=== PATIENT | female | born 1960 | race Caucasian/White ===

== ENCOUNTER 2018-10-30 13:34 | Inpatient (IN) | payer BC ==
[~2018-10-30 13:34] MED LIST: ISOVUE-370 76%-LOCM 1 ML ONE
[2018-10-30 14:02] LABS: Bilirubin Small (Negative); Blood, Urine Negative (Negative); Clarity CLEAR (Clear); Glucose, Urine (Dipstick) Negative (Negative); Leukocyte Trace (Negative); Nitrite Negative (Negative); Protein, Urine (Dipstick) Negative (Neg-Trace); Specific Gravity, Urine 1.021 (1.002-1.036)
[2018-10-30 14:04] LABS: Bacteria/HPF None Seen HPF (None Seen); Hyaline Casts/LPF 4-6 HYALINE CAST LPF (0-3 Hyaline); Pathc Cast-AUWi Flag 0.43 (0-2.49); Squamous Epithelial 0-3 HPF (0-3); WBC/HPF 0-3 HPF (0-3)
[2018-10-30] MEDS ORDERED: Ondansetron PF 4 MG/2 ML Vial ONE (14:53)
[2018-10-30] MEDS ORDERED: Morphine 4 MG/ML VIAL ONE (14:53)
[2018-10-30 14:59] LABS: #Lymphocytes 1.6 thou/uL (1.20-3.40); #Monocytes 0.8 thou/uL (0.11-0.59); #Neutrophils 14.8 thou/uL (1.40-6.50); %Basophils 0.1 % (0.0-1.0); %Eosinophils 0.3 % (0.0-10.0); %Lymphocytes 9.1 % (21.0-51.0); %Monocytes 4.7 % (0.0-10.0); %Neutrophils 85.9 % (42.0-75.0); Hemoglobin 15.1 g/dL (12.0-16.0); Mean Corpuscular HGB CONC 32.9 g/dL (32.0-36.0); Mean Corpuscular Hemoglobin 30.5 pg (27.0-31.0); Mean Corpuscular Volume 92.6 fL (78.0-98.0); Mean Platelet Volume 8.2 fL (7.4-10.4); Platelet Count 333 thou/uL (130-400); RBC Distribution Width 12.1 % (11.5-14.5); Red Blood Cell (RBC) Count 4.95 mill/uL (4.20-5.40); White Blood Cell (WBC) Count 17.3 thou/uL (4.8-10.8)
[2018-10-30 15:21] LABS: ALT (SGPT) 9 U/L (8-55); AST (SGOT) 13 U/L (5-34); Albumin 4.2 g/dL (3.5-5.0); Alkaline Phosphatase 104 U/L (40-150); Anion Gap 16 mmol/L (10-20); BUN (Urea Nitrogen) 10 mg/dL (9.8-20.1); Bilirubin, Total 1.3 mg/dL (0.2-1.2); Calc. Creatinine Clearance 0 mL/min (70-130); Calcium 9.7 mg/dL (7.8-10.44); Carbon Dioxide 20 mmol/L (22-29); Chloride 102 mmol/L (98-107); Estimated GFR-MDRD 81; Globulin 2.9 g/dL (2.4-3.5); Glucose 106 mg/dL (70-105); Lipase 23 U/L (8-78); Potassium 4.1 mmol/L (3.5-5.1); Protein, Total 7.1 g/dL (6.0-8.3); Sodium 134 mmol/L (136-145)
--- NOTE | 2018-10-30 15:27 | CT ---
CT ABDOMEN AND PELVIS WITH CONTRAST: HISTORY: Right lower quadrant abdominal pain. COMPARISON: None. FINDINGS: There are moderate emphysematous changes in the lung bases. No pericardial effusion. There is focal fatty infiltration in hepatic segment 4B, near the falciform ligament. The gallbladde r is unremarkable. The spleen is unremarkable. The pancreas is unremarkable. The aortoiliac contour is nonaneurysmal with moderate atherosclerotic plaque. There is marked wall t hickening of the sigmoid colon, in the pelvis, with adjacent diverticula, suggesting diverticulitis. There is small volume free fluid within the pelvis. The appendix is felt to be visualized and appea rs normal. No free intraperitoneal gas. The kidneys are unremarkable. The adrenal glands are unremarkable, as well as the pancreas. Moderate degenerative disease of the pubic symphysis. Moderate facet arthrosis of the lower lumbar s pine. IMPRESSION: 1. Findings suggestive of acute diverticulitis of the sigmoid colon, in the deep pelvis. Given the patient's age, follow-up colonoscopy after treatment is recommended to exclude an underlying neoplast ic process. 2. Normal appendix. POS: [facility]
[2018-10-30] MEDS ORDERED: metroNIDAZOLE 500 MG/100 ML BAG ONE (15:49)
[2018-10-30] MEDS ORDERED: Acetaminophen 325 MG TAB PO PRN (18:59)
[2018-10-30] MEDS ORDERED: Guaifenesin DM 100-10/5 ML UDCUP PO PRN (18:59)
[2018-10-30] MEDS ORDERED: Senokot S 8.6-50 MG TAB PO PRN (18:59)
[2018-10-30] MEDS ORDERED: Acetaminophen 650 MG Suppository PR PRN (18:59)
[2018-10-30] MEDS ORDERED: HYDROcodone/Acetaminophen 5/325 mg Tablet PO PRN (18:59)
--- NOTE | 2018-10-30 19:33 | HP ---
PRIMARY CARE PHYSICIAN: Dr. Valentín Feliciano. CHIEF COMPLAINT: Abdominal pain. HISTORY OF PRESENT ILLNESS: This is a 58-year-old white female with no past medical history, who came in complaining of 1-day history of lower abdominal pain. Pain has started yesterday night, sharp, continuous, in the suprapubic and right lower quadrant area, no radiation, no migration over time, associated with some nausea and some chills. She did not take her temperature to see if she had a fever. She came into the emergency room with severe pain, had a CT scan of the abdomen, which showed acute diverticulitis, normal appearing appendix. She also had elevated white count on her blood work. The patient was given ciprofloxacin and metronidazole in the emergency room along with pain medicine, and is now much more comfortable and little sleepy. She does deny having had any bowel movements since the start of the pain. PAST MEDICAL HISTORY: None. PAST SURGICAL HISTORY: None. SOCIAL HISTORY: The patient smokes half pack of cigarettes per day for several years. She did quit for a while, but then started back up in the early . She denies alcohol, or illicit drug use. She lives with her . FAMILY HISTORY: Mother with hypertension and diabetes mellitus. Dad with hypertension. No family history of colon cancer. ALLERGIES: NO KNOWN DRUG ALLERGIES. MEDICATIONS: No current medications. REVIEW OF SYSTEMS: CONSTITUTIONAL: She had chills as per HPI. EYES: No double vision or blurred vision. ENT: No congestion, drainage, or sore throat. CARDIOVASCULAR: No chest pain. No palpitations or racing heart. PULMONARY: No coughing, wheezing, or shortness of breath. GASTROINTESTINAL: See HPI. She has nausea. No vomiting. No bowel movements since the start of the pain. GENITOURINARY: No dysuria or hematuria. MUSCULOSKELETAL: No muscle aches, joint pain, or back pain. SKIN: No rashes or lesions. NEUROLOGIC: No numbness, tingling, or focal weakness. PHYSICAL EXAMINATION: VITAL SIGNS: Blood pressure 128/69, pulse 79, respirations 18, temperature 99.0 , and O2 saturation 94% on room air. GENERAL: This is a well-developed, well-nourished white female, in no acute distress, little sleepy from pain medicines. HEENT: Pupils are equal, round, and reactive to light. Oropharynx clear without lesions, erythema, or exudate. NECK: Supple. No lymphadenopathy. No thyroid nodules or enlargement. No JVD. HEART: Regular rate and rhythm. No murmurs, rubs, or gallops. LUNGS: Clear to auscultation bilaterally. No wheezes, crackles, or rhonchi. ABDOMEN: Soft. Mild tenderness to palpation suprapubically in the right lower quadrant. No guarding. No rebound tenderness. Normoactive bowel sounds. No hepatosplenomegaly or other masses. EXTREMITIES: No clubbing, cyanosis, or edema. SKIN: No rashes or other lesions noted. NEUROLOGIC: The patient has intact strength and sensation in all extremities. No facial droop. PSYCHIATRIC: Alert and oriented x3. Normal mood and affect. LABORATORY DATA: CBC; white blood cell count 17,000. The rest of the CBC is normal. Complete metabolic panel is notable for a sodium of 134, carbon dioxide of 20, glucose of 106, and total bilirubin of 1.3. Urinalysis showed trace ketones , trace leukocyte esterase, but no white blood cells, no bacteria. CT scan done in the emergency room with results as above. ASSESSMENT: 1. Acute diverticulitis, we will continue treating the patient with ciprofloxacin and metronidazole. We will give IV and oral pain medicine as needed. The patient has not had any further nausea and has not had no vomiting. We will go ahead and try her on a clear liquid diet for now. I anticipate the patient will need to be in the hospital 2 to 3 days as this calms down. There is no evidence of abscess or perforation at this time, though it would be hooper for the patient to get a colonoscopy done as after this all calmed down, make certain there is no neoplastic source for this. 2. Tobacco abuse. The patient has been counseled to quit. We will give her smoking cessation materials in the hospital. 3. Gastrointestinal prophylaxis. We will put the patient on Pepcid twice a day. 4. Deep venous thrombosis prophylaxis. We will put the patient on Lovenox subcu and SCDs while in bed. CODE STATUS: I did discuss with the patient. She is a full code. Should she be incapacitated, she states her will be her medical decision maker, his name is Armando Rollins. Job ID: [id number] [facility]
[2018-10-30 19:49] VITALS: BMI 19.3
[2018-10-30] MEDS: Famotidine 20 MG TAB PO SCH (20:33)
[2018-10-30] MEDS: Sodium Chloride 0.9% 1,000 ML IV SCH (20:33)
[2018-10-30] MEDS: metroNIDAZOLE 500 MG in Premix Bag 1 BAG IVPB SCH (22:48)
[2018-10-31] MEDS: metroNIDAZOLE 500 MG in Premix Bag 1 BAG IVPB SCH ×3 (05:57→21:10)
[2018-10-31 07:31] LABS: #Eosinphils 0.1 thou/uL (0.0-0.7); #Lymphocytes 2.6 thou/uL (1.20-3.40); #Monocytes 0.9 thou/uL (0.11-0.59); #Neutrophils 9.9 thou/uL (1.40-6.50); %Basophils 0.2 % (0.0-1.0); %Eosinophils 0.9 % (0.0-10.0); %Lymphocytes 19.2 % (21.0-51.0); %Monocytes 6.9 % (0.0-10.0); %Neutrophils 72.8 % (42.0-75.0); Hemoglobin 13.9 g/dL (12.0-16.0); Mean Corpuscular HGB CONC 32.6 g/dL (32.0-36.0); Mean Corpuscular Hemoglobin 30.3 pg (27.0-31.0); Mean Corpuscular Volume 92.8 fL (78.0-98.0); Mean Platelet Volume 8.4 fL (7.4-10.4); Platelet Count 294 thou/uL (130-400); RBC Distribution Width 12.3 % (11.5-14.5); White Blood Cell (WBC) Count 13.5 thou/uL (4.8-10.8)
[2018-10-31 07:50] LABS: Anion Gap 11 mmol/L (10-20); BUN (Urea Nitrogen) 7 mg/dL (9.8-20.1); Calc. Creatinine Clearance 71 mL/min (70-130); Calcium 9.1 mg/dL (7.8-10.44); Carbon Dioxide 24 mmol/L (22-29); Chloride 104 mmol/L (98-107); Estimated GFR-MDRD 73; Glucose 84 mg/dL (70-105); Potassium 3.5 mmol/L (3.5-5.1); Sodium 135 mmol/L (136-145)
[2018-10-31] MEDS: Enoxaparin Sodium 40 MG/0.4 ML SYRINGE SC SCH (07:53)
[2018-10-31] MEDS: Famotidine 20 MG TAB PO SCH ×2 (07:53→21:11)
[2018-10-31] MEDS: Sodium Chloride 0.9% 1,000 ML IV SCH ×2 (07:54→21:12)
--- NOTE | 2018-10-31 09:31 | PDOC.PN ---
- Subjective Encounter Start Date: 10/31/18 Encounter Start Time: 12:00 Subjective: Patient reports decreased pain, now more crampy. -: No fever/nausea/vomiting. - Objective Resuscitation Status - Order Detail: 10/30/18 17:02 Resuscitation Status Routine Resuscitation Status: FULL: Full Resuscitation Discussed with: Scott SANDOVAL Reviewed: Yes Vital Signs & Weight: Vital Signs (12 hours) Temp Pulse Resp BP Pulse Ox 10/31/18 07:20 98.1 F 76 17 116/74 93 L Weight Weight 127 lb 7 oz I&O: 10/30/18 10/31/18 11/01/18 06:59 06:59 06:59 Intake Total 1011 Balance 1011 Result Diagrams: 10/31/18 06:44 10/31/18 06:45 Phys Exam - Physical Examination Constitutional: NAD HEENT: moist MMs Respiratory: no wheezing, no rales, no rhonchi Cardiovascular: RRR, no significant murmur Gastrointestinal: soft, no distention, positive bowel sounds TTP RLQ and suprapubic Musculoskeletal: no edema Neurological: non-focal, moves all 4 limbs Psychiatric: normal affect, A&O x 3 Dx/Plan (1) Diverticulitis Code(s): K57.92 - DVTRCLI OF INTEST, PART UNSP, W/O PERF OR ABSCESS W/O BLEED Status: Acute Comment: Cipro and Metronidazole since 10/30/2018 (2) Tobacco abuse Code(s): Z72.0 - TOBACCO USE Status: Chronic - Plan cont current plan of care, continue antibiotics, DVT proph w/lovenox, DVT proph w/SCDs 1 more day of IV abx, can try advance diet tomorrow. * . - Discharge Day Encounter end time: 12:10
[2018-10-31] MEDS: Morphine 4 MG/ML VIAL SLOW IVP PRN (13:26)
[2018-10-31] MEDS: Ondansetron PF 4 MG/2 ML Vial IVP PRN (13:26)
[2018-11-01] MEDS: Morphine 4 MG/ML VIAL SLOW IVP PRN ×3 (03:58→19:28)
[2018-11-01] MEDS: metroNIDAZOLE 500 MG in Premix Bag 1 BAG IVPB SCH ×3 (05:31→20:33)
[2018-11-01] MEDS: Famotidine 20 MG TAB PO SCH ×2 (09:34→20:30)
[2018-11-01] MEDS: Enoxaparin Sodium 40 MG/0.4 ML SYRINGE SC SCH (09:34)
--- NOTE | 2018-11-01 09:45 | PDOC.PN ---
- Subjective Encounter Start Date: 11/01/18 Encounter Start Time: 10:35 Subjective: Patient reports continued suprapubic pain. Feels like she needs to have BM -: but can't. Still requiring pain meds. - Objective Resuscitation Status - Order Detail: 10/30/18 17:02 Resuscitation Status Routine Resuscitation Status: FULL: Full Resuscitation Discussed with: Patient LORI Reviewed: Yes Vital Signs & Weight: Vital Signs (12 hours) Temp Pulse Resp BP Pulse Ox 11/01/18 07:16 98.7 F 74 18 91/56 L 90 L 10/31/18 22:00 99.4 F 82 18 111/67 90 L Weight Weight 127 lb 7 oz I&O: 10/31/18 11/01/18 11/02/18 06:59 06:59 06:59 Intake Total 1011 3020 Balance 1011 3020 Result Diagrams: 10/31/18 06:44 10/31/18 06:45 Phys Exam - Physical Examination Constitutional: NAD HEENT: moist MMs Respiratory: no wheezing, no rales, no rhonchi Cardiovascular: RRR, no significant murmur Gastrointestinal: soft, positive bowel sounds TTP suprapubic Musculoskeletal: no edema Neurological: non-focal, moves all 4 limbs Psychiatric: normal affect, A&O x 3 Dx/Plan (1) Diverticulitis Code(s): K57.92 - DVTRCLI OF INTEST, PART UNSP, W/O PERF OR ABSCESS W/O BLEED Status: Acute Comment: Cipro and Metronidazole since 10/30/2018 (2) Tobacco abuse Code(s): Z72.0 - TOBACCO USE Status: Chronic - Plan cont current plan of care, continue antibiotics, DVT proph w/lovenox, DVT proph w/SCDs If no improvement by tomorrow will consult GI and consider repeat imaging. * . - Discharge Day Encounter end time: 10:45
[2018-11-01] MEDS ORDERED: Senokot 8.6 MG TAB PO PRN (10:53)
[2018-11-01] MEDS: Sodium Chloride 0.9% 1,000 ML IV SCH ×2 (13:41→23:38)
[2018-11-01] MEDS: Ondansetron PF 4 MG/2 ML Vial IVP PRN (19:28)
[2018-11-01] MEDS: Docusate 100 MG CAP PO SCH (20:30)
[2018-11-02] MEDS: Ondansetron PF 4 MG/2 ML Vial IVP PRN (04:03)
[2018-11-02] MEDS: Morphine 4 MG/ML VIAL SLOW IVP PRN (04:03)
[2018-11-02] MEDS ORDERED: Ketorolac Tromethamine 30 MG/ML VIAL IVP SCH (04:30)
[2018-11-02] MEDS: metroNIDAZOLE 500 MG in Premix Bag 1 BAG IVPB SCH ×3 (05:33→21:25)
[2018-11-02 06:46] LABS: Anion Gap 12 mmol/L (10-20); BUN (Urea Nitrogen) Less than 4 mg/dL (9.8-20.1); Calc. Creatinine Clearance 94 mL/min (70-130); Calcium 8.4 mg/dL (7.8-10.44); Carbon Dioxide 24 mmol/L (22-29); Chloride 99 mmol/L (98-107); Estimated GFR-MDRD Greater than 90; Glucose 113 mg/dL (70-105); Potassium 3.1 mmol/L (3.5-5.1); Sodium 132 mmol/L (136-145)
[2018-11-02 07:21] LABS: Hemoglobin 12.6 g/dL (12.0-16.0); Mean Corpuscular HGB CONC 32.5 g/dL (32.0-36.0); Mean Corpuscular Hemoglobin 30.6 pg (27.0-31.0); Mean Platelet Volume 8.2 fL (7.4-10.4); Platelet Count 242 thou/uL (130-400)
[2018-11-02 08:18] LABS: Band 9 % (5-11); Lymphocytes 5 % (21-51); MDiff Complete? YES; Monocytes 3 % (0-10); Neutrophil 82 % (42-75); RBC Morphology Normal; Reactive Lymphocytes 1 % (0-10)
--- NOTE | 2018-11-02 09:35 | PDOC.PN ---
- Subjective Encounter Start Date: 11/02/18 Encounter Start Time: 11:50 Subjective: Patient had nausea and some vomiting this AM. Abdominal -: pain about the same. - Objective Resuscitation Status - Order Detail: 10/30/18 17:02 Resuscitation Status Routine Resuscitation Status: FULL: Full Resuscitation Discussed with: Scott SANDOVAL Reviewed: Yes Vital Signs & Weight: Weight Weight 127 lb 7 oz I&O: 11/01/18 11/02/18 11/03/18 06:59 06:59 06:59 Intake Total 3020 1230 Balance 3020 1230 Result Diagrams: 11/02/18 05:52 11/02/18 05:52 Phys Exam - Physical Examination Constitutional: NAD HEENT: moist MMs Respiratory: no wheezing, no rales, no rhonchi Cardiovascular: RRR, no significant murmur Gastrointestinal: soft, positive bowel sounds TTP suprapubic Neurological: non-focal, moves all 4 limbs Psychiatric: normal affect, A&O x 3 Dx/Plan (1) Diverticulitis Code(s): K57.92 - DVTRCLI OF INTEST, PART UNSP, W/O PERF OR ABSCESS W/O BLEED Status: Acute Comment: Cipro and Metronidazole since 10/30/2018 (2) Tobacco abuse Code(s): Z72.0 - TOBACCO USE Status: Chronic - Plan cont current plan of care, continue antibiotics Consulting Dr. Gr for persisently symptomatic diverticulitis. * . - Discharge Day Encounter end time: 12:00
[2018-11-02] MEDS: Enoxaparin Sodium 40 MG/0.4 ML SYRINGE SC SCH (09:48)
[2018-11-02] MEDS: Famotidine 20 MG TAB PO SCH ×2 (09:48→21:24)
[2018-11-02] MEDS: Docusate 100 MG CAP PO SCH (09:48)
[2018-11-02] MEDS: Sodium Chloride 0.9% 1,000 ML IV SCH ×2 (15:41→21:25)
[2018-11-02] MEDS ORDERED: Iopamidol 370 76% 50 ML VIAL FS ONE (16:26)
[2018-11-02] MEDS: Piperacillin/Tazobactam 3.375 GM in Sodium Chloride 0.9% 100 ML IVPB SCH (18:41)
--- NOTE | 2018-11-02 21:48 | CON ---
DATE OF CONSULTATION: 11/02/2018 CONSULTING PHYSICIAN: Dr. Miki Cavanaugh. REASON FOR CONSULTATION: Diverticulitis. HISTORY OF PRESENT ILLNESS: The patient is a 58-year-old female with no significant past medical history, presenting with complaints of lower abdominal pain. She states that she was in her usual state of health until approximately 24 hours ago when she began to experience increased suprapubic abdominal pain characterized as a sharp/burning type sensation, would radiate to the left lower quadrant and right lower quadrant and reach a severity of approximately 8 to 9/10. The pain was associated with increased tenesmus, nausea without vomiting and subjective fevers or chills. The pain was worse with increased physical activity and pressure to the region with no clear alleviating factors with increase in her abdominal pain and prompted her to seek healthcare assistance with admission to the [place] [place] [facility]. While in the ER, she had a CT scan showing increased bowel wall thickening in the sigmoid colon consistent with acute diverticulitis and was admitted to the hospital for further management. Over the next 24 to 48 hours, she responded well to IV antibiotics with progressively lesser degree of abdominal pain as well as no subjective fevers or chills. However, last night she experienced a sudden increase in her lower abdominal pain, fevers, chills, nausea and vomiting. Today, she states that her pain is slightly better and she has not had any further episodes of nausea or vomiting, but still has not had a bowel movement since admission. Currently, she denies any GI bleeding, dysphagia or odynophagia. REVIEW OF SYSTEMS: A 10-category review of systems was obtained with all responses negative except for the pertinent positives as listed in the HPI. PAST MEDICAL HISTORY: None. PAST SURGICAL HISTORY: None. FAMILY HISTORY: Denies any GI malignancies. SOCIAL HISTORY: She denies any alcohol or illicit drug use. Smokes a half pack per day of tobacco. OUTPATIENT MEDICATIONS: None. ALLERGIES: NO KNOWN DRUG ALLERGIES. PHYSICAL EXAMINATION: VITAL SIGNS: Temperature 98.7, pulse 76, blood pressure 113/71, respiratory rate 16, saturating 93% on room air. GENERAL: The patient is lying in bed, in no acute distress. Alert and oriented x4. HEENT: Normocephalic, atraumatic. NECK: Supple with no JVD or scleral icterus noted. CARDIOVASCULAR: Regular rate and rhythm with no discernible murmurs, gallops, or rubs. RESPIRATORY: Clear to auscultation bilaterally with no discernible wheezes or rales. ABDOMEN: Normoactive bowel sounds. Soft, nondistended. Tenderness to palpation in the right upper quadrant, right lower quadrant and suprapubic regions with mild tenderness to palpation in the left lower quadrant and left upper pole. EXTREMITIES: No cyanosis, clubbing, or edema. LABORATORY DATA: CBC with a white blood cell count of 21, hemoglobin 12.6, hematocrit 38.6, platelets 242. Chemistry with a sodium of 132, potassium 3.1, chloride 99, CO2 of 24, BUN less than 4, creatinine 0.61, glucose 113. IMAGING DATA: CT of the abdomen and pelvis obtained on October 30, 2018, showed moderate emphysema in the lung bases with no pericardial effusion. There was marked wall thickening of the sigmoid colon in the pelvis with adjacent diverticula suggesting diverticulitis. There was also some small volume of free fluid within the pelvis, but no free intraperitoneal gas or evidence of perforation. ASSESSMENT AND PLAN: The patient is a 58-year-old female with no significant past medical history, presenting with acute uncomplicated diverticulitis. Acute uncomplicated diverticulitis: The patient is presenting with acute onset of suprapubic abdominal pain characterized as a sharp/burning-type sensation and radiating to the lower abdominal quadrants. On admission, she was noted to have a moderately elevated white blood cell count in addition to imaging findings consistent with acute diverticulitis. She initially responded well to IV antibiotics, but over the last 24 hours has been having diminishing returns with this therapeutic regimen with increased abdominal pain, nausea, and vomiting last night. Today, she has an up trend in terms of her white blood cell count concerning for an additional process contributing to her current clinical situation. At this point, her diverticulitis may no longer be uncomplicated, but instead if she has experienced perforation or abscess formation could explain her fever, chills, nausea, vomiting, and elevated white blood cell count. RECOMMENDATIONS: 1. We would transfer patient to broader spectrum antibiotics including Zosyn instead of the ciprofloxacin. 2. We would repeat the CT of the abdomen and pelvis with oral contrast for evaluation of any potential complications of her diverticulitis. 3. We would place the patient on MiraLAX 1 capsule daily to assist with having a bowel movement as constipation could potentially contribute to her current symptoms as well. 4. No endoscopic evaluation is indicated at this time given the increased risk of perforation with diverticulitis. 5. We will continue to follow. 6. Please call with any questions. Job ID: [id number]
--- NOTE | 2018-11-02 21:54 | CT ---
CT OF THE ABDOMEN AND PELVIS WITHOUT IV CONTRAST 11/02/18 INDICATION: History of worsening abdominal pain and diverticulitis with complaints of nausea. FINDINGS: There is persistent area of focal fatty infiltration near the falciform ligament. The gallbladder is moderately distended. The unopacified pancreas, adrenal glands and spleen are unremarkable. Unopacified kidneys reveal no d efinite acute abnormality. Small cysts within the left kidney are stable. There are moderate calcifications involving the abdominal and pelvic vasculature. There is persistent wall thickening and pericolonic inflammatory stranding involving the sigmoid colo n. No definite drainable fluid collection is grossly evident. There is a focus of collection of stool and gas seen within the wall of the sigmoid colon measuring approximately 1.5 cm on image 58 of seri es 2. This appears to be an intramural abscess when reviewing the prior examination. This is not perc utaneously drainable. Small bowel is of normal caliber. Mild free fluid is again seen within the pelvis. No acute osseous abnormality is evident. There is scattered degenerative and osteoarthritic change. IMPRESSION: 1. Persistent findings of acute sigmoid diverticulitis. There is a small intramural abscess octavio uring 1.5 cm along the posterior wall of the sigmoid colon on image 58 of series 2 that is likely sta ble to the prior exam. No definite drainable fluid collection is evident. 2. Prominent distention of the gallbladder may be related to diminished p.o. intake. Right upper quadrant ultrasound may be helpful for improved characterization. 3. Emphysema. 4. Small hiatal hernia. 5. Persistent left renal cyst and focal fatty infiltration of the liver. POS: [facility]
[2018-11-03] MEDS: Morphine 4 MG/ML VIAL SLOW IVP PRN
[2018-11-03] MEDS: Piperacillin/Tazobactam 3.375 GM in Sodium Chloride 0.9% 100 ML IVPB SCH ×3 (01:03→16:52)
[2018-11-03] MEDS: metroNIDAZOLE 500 MG in Premix Bag 1 BAG IVPB SCH ×3 (05:06→21:11)
[2018-11-03] MEDS: Enoxaparin Sodium 40 MG/0.4 ML SYRINGE SC SCH (08:14)
[2018-11-03] MEDS: Famotidine 20 MG TAB PO SCH ×2 (08:14→20:12)
[2018-11-03] MEDS: Polyethylene Glycol 3350 17 GM Packet PO SCH (08:20)
[2018-11-03 11:06] LABS: #Eosinphils 0.1 thou/uL (0.0-0.7); #Lymphocytes 1.6 thou/uL (1.20-3.40); #Monocytes 1.1 thou/uL (0.11-0.59); #Neutrophils 13.8 thou/uL (1.40-6.50); %Basophils 0.3 % (0.0-1.0); %Eosinophils 0.5 % (0.0-10.0); %Lymphocytes 9.4 % (21.0-51.0); %Monocytes 6.5 % (0.0-10.0); %Neutrophils 83.4 % (42.0-75.0); Hemoglobin 13.5 g/dL (12.0-16.0); Mean Corpuscular HGB CONC 32.1 g/dL (32.0-36.0); Mean Corpuscular Hemoglobin 29.8 pg (27.0-31.0); Mean Platelet Volume 8.1 fL (7.4-10.4); Platelet Count 292 thou/uL (130-400); RBC Distribution Width 12.1 % (11.5-14.5); Red Blood Cell (RBC) Count 4.52 mill/uL (4.20-5.40); White Blood Cell (WBC) Count 16.6 thou/uL (4.8-10.8)
[2018-11-03 11:33] LABS: Anion Gap 15 mmol/L (10-20); BUN (Urea Nitrogen) Less than 4 mg/dL (9.8-20.1); Calc. Creatinine Clearance 91 mL/min (70-130); Calcium 8.6 mg/dL (7.8-10.44); Carbon Dioxide 24 mmol/L (22-29); Chloride 99 mmol/L (98-107); Estimated GFR-MDRD Greater than 90; Glucose 92 mg/dL (70-105); Potassium 3.2 mmol/L (3.5-5.1); Sodium 135 mmol/L (136-145)
--- NOTE | 2018-11-03 12:43 | PRG ---
DATE OF SERVICE: 11/03/2018 SUBJECTIVE: The patient is seen and examined at bedside. She is feeling basically the same, not worse, not better. She is on full liquid diet. OBJECTIVE: VITAL SIGNS: Blood pressure is 112/72, pulse is 77, temperature is 98, respiratory rate is 19, and O2 saturation is 92% on room air. HEENT: Her head is atraumatic and normocephalic. Eyes are PERRLA. Sclerae nonicteric. Oral mucosa is somewhat dry. NECK: Supple. LUNGS: Clear. HEART: S1 and S2 normal. No S3. No S4. ABDOMEN: Soft, but tender upper quadrant, right lower quadrant, and suprapubic regions with mild tenderness to palpation in the left lower quadrant and left upper pole. EXTREMITIES: No clubbing, cyanosis, or edema. NEUROLOGIC: She is alert and oriented x4. There is no any motor or sensory deficit present. Cranial nerves are intact. LABORATORY DATA AND DIAGNOSTIC STUDIES: White count of 16.6, hemoglobin 13.5, hematocrit 42.1, and platelet count is 292,000. Chemistry showed sodium of 135, potassium 3.2, chloride 99, CO2 of 24, , glucose 92, calcium 8.6. CT of the abdomen and pelvis was done yesterday, which showed 1. Persistent findings of acute sigmoid diverticulitis with some small intramural abscess, measuring 1.5 cm along with the posterior wall of the sigmoid colon. There is no any definite drainable fluid collection. 2. Prominent distention of the gallbladder may be related to diminished p.o. intake. 3. Emphysema. 4. Small hiatal hernia. 5. Persistent left renal cyst and focal fatty infiltration of the liver. IMPRESSION: 1. Diverticulitis. The patient was seen by manual tester, Dr. Gr, who recommended broad-spectrum antibiotics, so the patient is switched from Cipro to Zosyn along with her metronidazole will be discussed with the patient. 2. Tobacco abuse. 3. Emphysema per CT of the abdomen findings. 4. Small hiatal hernia. 5. Left renal cyst. 6. Focal fatty infiltration of the liver. 7. Gallbladder distention, felt to be most likely related to diminished p.o. intake. PLAN: To continue broad-spectrum antibiotics along with pain medicine with morphine and oral hydrocodone. DVT prophylaxis with Lovenox and ultrasound of the abdomen. Job ID: [id number]
[2018-11-03] MEDS: Sodium Chloride 0.9% 1,000 ML IV SCH (14:19)
--- NOTE | 2018-11-03 18:01 | ULT ---
ABDOMINAL AORTIC ULTRASOUND: 11/03/18 HISTORY: Abdominal pain. COMPARISON: None. TECHNIQUE: Utilizing a multihertz transducer, sonographic imaging of the abdomen is performed in the longitudina l and transverse plane. FINDINGS: The distal aorta is obscured. The visualized aorta demonstrates some atherosclerotic disease. No evid ence of aneurysm. The visualized IVC is unremarkable. Hepatic parenchyma has a normal echotexture. No hepatic masses or intrahepatic biliary dilatation. The contour of the hepatic margin is maintained. Right hepatic lobe is mildly enlarged measuring 18 cm. No sonographic evidence of cholelithiasis, gallbladder wall thickening, or pericholecystic fluid. The regasification plant operator reports a negative [place]'s sign. There is a small amount of fluid in Samuel's pouch. Gallbladder is distended. Main portal vein is patent. Appropriate directional flow. Common bile duct diameter is 0.5 cm. Both kidneys have a normal cortical echotexture. Bilaterally, n o hydronephrosis. Right kidney measures 10.5 x 4.3 x 6.0 cm. Left kidney measures 10.6 x 5.5 x 4.5 cm . There is a small anechoic focus associated with the left kidney measuring 0.8 cm. Lesion is likely a cyst. The head of the pancreas has a normal echotexture. The remainder of the pancreas is obscured by bowel gas. The visualized spleen has a normal echotexture, maximum dimension of 9.3 cm. IMPRESSION: 1. Small amount of fluid in Samuel's pouch. 2. Distended gallbladder without sonographic evidence of cholelithiasis or cholecystitis. HIDA s can with EF if clinically warranted. POS: [facility]HA
--- NOTE | 2018-11-03 22:56 | PRG ---
DATE OF SERVICE: REASON FOR CONSULTATION: Diverticulitis. SUBJECTIVE: The patient states that her abdominal pain is improved when compared to yesterday, although she does continue to have significant left lower quadrant abdominal pain. She currently denies any nausea, vomiting, fevers, chills, GI bleeding, dysphagia, or odynophagia. She did have a smaller somewhat solid bowel movement earlier today. OBJECTIVE: VITAL SIGNS: Temperature 98.4, pulse 71, blood pressure 107/67, respiratory rate 18, and saturating 96% on room air. GENERAL: The patient is lying in bed, in no acute distress. Alert and oriented x4. CARDIOVASCULAR: Regular rate and rhythm. RESPIRATORY: Clear to auscultation bilaterally. ABDOMEN: Normoactive bowel sounds. Soft, nondistended. Tenderness to palpation in the lower abdominal quadrants. EXTREMITIES: No cyanosis, clubbing, or edema. LABORATORY DATA: CBC with a white blood cell count of 16.6, hemoglobin 13.5, hematocrit 42.1, and platelets 292. Chemistry with a sodium of 135, potassium 3.2, chloride 99, CO2 of 24, BUN less than 4, creatinine 0.63, and glucose 92. IMAGING DATA: CT of the abdomen and pelvis was obtained on November 02, 2018, which showed persistent focal fatty infiltration of the falciform ligament with moderate distention of the gallbladder. There was also persistent wall thickening and pericolonic inflammatory stranding involving the sigmoid colon associated with diverticula. There was no definite drainable fluid collection grossly evident. However, there was a focus of collection of stool and gas within the wall of the sigmoid colon measuring approximately 1.5 cm, consistent with an intramural abscess. ASSESSMENT AND PLAN: The patient is a 58-year-old female with no significant past medical history, presenting with an acute uncomplicated diverticulitis. Acute uncomplicated diverticulitis. The patient is presenting with acute onset of suprapubic abdominal pain shortly before admission with an elevated white blood cell count and imaging consistent with acute diverticulitis. She initially responded well to IV antibiotics, but did experience increased nausea and vomiting as well as increased abdominal pain on hospital day 3, concerning for an additional process going on other than diverticulitis. Repeat CT scan obtained on November 02, 2018, showed the stable findings as well as increased inflammation around the sigmoid colon, again consistent with diverticulitis, but also showing a 1.5 cm intramural abscess, which was stable when compared to the prior examination. At this time, the protracted course with continued abdominal pain during this hospitalization is more likely due to her diverticulitis and in the presence of an intramural abscess that may require extended antibiotic administration in order to alleviate. RECOMMENDATION: 1. We would continue patient on a broader spectrum antibiotic including Zosyn. 2. Continue patient on MiraLAX 1 capful daily to assist with having a bowel movement. 3. No endoscopic evaluation is indicated at this time given the increased risk of perforation with diverticulitis. 4. Continue to monitor clinically for improvement in abdominal pain. 5. The patient will need a colonoscopy performed as an outpatient in approximately 6 to 8 weeks for evaluation of the colon for any other underlying abnormalities that may have contributed to her current clinical status. We will continue to follow. Please call with any questions. Job ID: [id number]
[2018-11-03] MEDS: Ondansetron PF 4 MG/2 ML Vial IVP PRN (23:00)
[2018-11-03] MEDS: HYDROcodone/Acetaminophen 5/325 mg Tablet PO PRN (23:06)
[2018-11-04] MEDS: Piperacillin/Tazobactam 3.375 GM in Sodium Chloride 0.9% 100 ML IVPB SCH ×4 (02:25→23:42)
[2018-11-04] MEDS: Sodium Chloride 0.9% 1,000 ML IV SCH (06:06)
[2018-11-04] MEDS: metroNIDAZOLE 500 MG in Premix Bag 1 BAG IVPB SCH ×2 (06:06→14:49)
[2018-11-04] MEDS: Enoxaparin Sodium 40 MG/0.4 ML SYRINGE SC SCH (08:58)
[2018-11-04] MEDS: Famotidine 20 MG TAB PO SCH ×2 (08:58→20:36)
[2018-11-04] MEDS: Polyethylene Glycol 3350 17 GM Packet PO SCH (08:59)
[2018-11-04] MEDS ORDERED: Polyethylene Glycol 3350 17 GM Packet PO PRN (14:27)
[2018-11-04] MEDS ORDERED: Potassium Chloride 20 MEQ TAB PO SCH (14:30)
--- NOTE | 2018-11-04 14:30 | PDOC.PN ---
- Subjective Encounter Start Date: 11/04/18 (f/u diverticulitis) Encounter Start Time: 14:28 Subjective: Pt reports the pain is a little better today. Having diarrhea and frequent -: voiding. Denies any problems with taking PO - Objective Resuscitation Status - Order Detail: 10/30/18 17:02 Resuscitation Status Routine Resuscitation Status: FULL: Full Resuscitation Discussed with: Patient Vital Signs & Weight: Vital Signs (12 hours) Temp Pulse Resp BP Pulse Ox 11/04/18 13:18 98.6 F 66 20 117/73 94 L 11/04/18 13:10 98.6 F 66 20 117/73 94 L 11/04/18 08:41 98.6 F 65 20 122/70 95 11/04/18 08:00 95 Weight Admit Weight 127 lb 7 oz Weight 127 lb 7 oz I&O: 11/03/18 11/04/18 11/05/18 06:59 06:59 06:59 Intake Total 3848 2589 180 Balance 3848 2589 180 Result Diagrams: 11/03/18 10:57 11/03/18 10:57 Phys Exam - Physical Examination Constitutional: NAD Respiratory: no wheezing, no rales, no rhonchi Cardiovascular: RRR, no significant murmur Gastrointestinal: soft, no distention, positive bowel sounds ttp lower abdomen without palpable abnormality Musculoskeletal: no edema Psychiatric: normal affect Dx/Plan (1) Diverticulitis Code(s): K57.92 - DVTRCLI OF INTEST, PART UNSP, W/O PERF OR ABSCESS W/O BLEED Status: Acute (2) Hyponatremia Code(s): E87.1 - HYPO-OSMOLALITY AND HYPONATREMIA Status: Acute (3) Hypokalemia Code(s): E87.6 - HYPOKALEMIA Status: Acute (4) Tobacco abuse Code(s): Z72.0 - TOBACCO USE Status: Chronic - Plan * Appreciate GI consult - on zosyn and metronidazole. * Diarrhea likely combination of contrast, stool softener and antibiotics * d/c IVF as taking PO without difficulty * WBC improved today * hold on diet change pending GI evaluation * hyponatremia mild and stable * replace potassium * * dvt prophy - ambulatory * gi prophy - not indicated * code status full * * reviewed plan of care with patient, no questions or further needs at end of eval
--- NOTE | 2018-11-04 21:45 | PRG ---
DATE OF SERVICE: 11/04/2018 REASON FOR CONSULTATION: Diverticulitis. SUBJECTIVE: The patient states that her abdominal pain has improved when compared to yesterday, although she does continue to have mild aching pain in the left lower and suprapubic regions. At the current time, she is hungry and would like to advance her diet. Currently, she denies any nausea, vomiting, fevers, chills, GI bleeding, dysphagia, or odynophagia. She has had multiple small volume semi-solid liquid bowel movements with approximately 2 today. OBJECTIVE: VITAL SIGNS: Temperature 98.1, pulse 72, blood pressure 123/76, respiratory rate 16, and saturating 99% on room air. GENERAL: The patient is lying in bed, in no acute distress. Alert and oriented x4. CARDIOVASCULAR: Regular rate and rhythm. RESPIRATORY: Clear to auscultation bilaterally. ABDOMEN: Normoactive bowel sounds. Soft, nondistended. Tenderness to palpation in the lower abdominal quadrants. EXTREMITIES: No cyanosis, clubbing, or edema. LABORATORY DATA: No current studies are available for review. IMAGING DATA: No current GI imaging is available for review. ASSESSMENT AND PLAN: The patient is a 58-year-old female with no significant past medical history, presenting with acute complicated diverticulitis. The patient is presenting with acute onset of suprapubic abdominal pain shortly before admission with an elevated white blood cell count and imaging shortly after admission consistent with acute diverticulitis. She initially responded well to IV antibiotics but did experience nausea, vomiting, and increased abdominal pain on hospital day 3, concerning for an additional process and/or complication. Repeat CT scan obtained on November 02, 2018, showed stable findings with increased inflammation around the sigmoid colon, but also showing a 1.5 cm intramural abscess, again that was also stable when compared to prior examination. She was subsequently placed on IV Zosyn and has responded well over the last 24 to 48 hours to this regimen with a decreased abdominal pain and increasing frequency of semi-solid bowel movements. RECOMMENDATIONS: 1. We would continue the patient on broader spectrum antibiotic including Zosyn, but this can be used as monotherapy without the addition of metronidazole. I will discontinue metronidazole at this time. 2. I agree with placing the MiraLAX as needed given the increased frequency of bowel movements. 3. No endoscopic evaluation is indicated at this time due to increased risk of perforation with diverticulitis. 4. We would obtain a repeat CT scan tomorrow for re-evaluation of the intramural abscess and possible resolution. If the patient's pain is improving and there is resolution of the abscess on imaging, then she could be potentially discharged with oral antibiotics. 5. The patient will need a colonoscopy as an outpatient, 6 to 8 weeks after discharge. We will continue to follow. Please call with any questions. Job ID: [id number]
[2018-11-05] MEDS: HYDROcodone/Acetaminophen 5/325 mg Tablet PO PRN ×2 (02:15→22:13)
[2018-11-05] MEDS: Piperacillin/Tazobactam 3.375 GM in Sodium Chloride 0.9% 100 ML IVPB SCH ×4 (05:08→23:03)
[2018-11-05 06:16] LABS: #Basophils 0.1 thou/uL (0.0-0.2); #Eosinphils 0.3 thou/uL (0.0-0.7); #Lymphocytes 2.4 thou/uL (1.20-3.40); #Monocytes 1.1 thou/uL (0.11-0.59); #Neutrophils 10.5 thou/uL (1.40-6.50); %Basophils 0.4 % (0.0-1.0); %Eosinophils 2.1 % (0.0-10.0); %Lymphocytes 16.6 % (21.0-51.0); %Monocytes 7.6 % (0.0-10.0); %Neutrophils 73.3 % (42.0-75.0); Mean Corpuscular HGB CONC 32.3 g/dL (32.0-36.0); Mean Corpuscular Hemoglobin 30.2 pg (27.0-31.0); Mean Corpuscular Volume 93.6 fL (78.0-98.0); Mean Platelet Volume 7.7 fL (7.4-10.4); Platelet Count 333 thou/uL (130-400); RBC Distribution Width 12.1 % (11.5-14.5); Red Blood Cell (RBC) Count 3.98 mill/uL (4.20-5.40); White Blood Cell (WBC) Count 14.3 thou/uL (4.8-10.8)
[2018-11-05 06:36] LABS: Anion Gap 12 mmol/L (10-20); BUN (Urea Nitrogen) Less than 4 mg/dL (9.8-20.1); Calc. Creatinine Clearance 97 mL/min (70-130); Calcium 8.2 mg/dL (7.8-10.44); Carbon Dioxide 27 mmol/L (22-29); Chloride 102 mmol/L (98-107); Estimated GFR-MDRD Greater than 90; Glucose 68 mg/dL (70-105); Sodium 138 mmol/L (136-145)
--- NOTE | 2018-11-05 09:12 | PRG ---
DATE OF SERVICE: 11/05/2018 SUBJECTIVE: The patient is seen and examined at the bedside. She is feeling somewhat better. She still has quite a bit of pain, but it is improving. She is able to tolerate her full liquid diet without any problem. OBJECTIVE: VITAL SIGNS: Blood pressure is 136/80, temperature is 97.4, maximal temperature is 98.6, respiratory rate is 16, O2 saturation is 97% on room air. HEENT: Head is atraumatic and normocephalic. Eyes are PERRLA. Sclerae are nonicteric. Oral mucosa is moist. NECK: Supple. No lymphadenopathy. Thyroid is not palpable. LUNGS: Clear. HEART: S1, S2 normal. No S3. No S4. No any murmur. ABDOMEN: Tender all in the lower parts, mainly on the right side. Bowel sounds are present. No organomegaly. EXTREMITIES: No clubbing, cyanosis, or edema. NEUROLOGICAL: She is alert and oriented x4. There is no any motor or sensory deficits present. Cranial nerves are intact. LABORATORY DATA: Labs showed white count of 14.3, hemoglobin 12.0, hematocrit 37.3, platelet count is 333,000. Sodium 138, potassium 3.0, chloride 102, CO2 of 27, BUN 4, creatinine 0.59, glucose 68. IMPRESSION: 1. Diverticulitis without perforated, but with intestinal wall abscess. 2. Hypokalemia. 3. Emphysema per CT findings. 4. Tobacco abuse. 5. Small hiatal hernia. 6. Left renal cyst. 7. Focal fatty infiltration of the liver. 8. Gallbladder distention, felt to be most likely related to diminished p.o. intake. DISCUSSION: The patient is improving. We will continue her IV Zosyn. We will obtain the CT of the abdomen and pelvis with contrast as recommended. Per GI, she is going to be advanced on her diet if it is okay with Dr. Gr. Also, we will continue her on DVT prophylaxis with SCDs and Lovenox. Job ID: [id number]
[2018-11-05] MEDS: Famotidine 20 MG TAB PO SCH ×3 (09:19→20:05)
[2018-11-05] MEDS: Enoxaparin Sodium 40 MG/0.4 ML SYRINGE SC SCH ×2 (09:19→10:07)
[2018-11-05] MEDS: Potassium Chloride 20 MEQ TAB PO SCH ×2 (10:06→11:56)
--- NOTE | 2018-11-05 15:28 | PRG ---
DATE OF SERVICE: 11/05/2018 REASON FOR CONSULTATION: Diverticulitis. SUBJECTIVE: The patient states that her pain in the suprapubic region is relatively unchanged from yesterday. She does have significant pain with increased activity and pressure to the region. However, she was able to tolerate the full liquid diet without any significant worsening of her abdominal pain. She does continue to have approximately 2 smaller volume semi-solid to liquid bowel movements within the last 24 hours. Currently, she denies any nausea, vomiting, fevers, chills, or GI bleeding. OBJECTIVE: VITAL SIGNS: Temperature 97.4, pulse 67, blood pressure 136/80, respiratory rate 16, and saturating 97% on room air. GENERAL: The patient is lying in bed, in no acute distress. Alert and oriented x4. CARDIOVASCULAR: Regular rate and rhythm. RESPIRATORY: Clear to auscultation bilaterally. ABDOMEN: Normoactive bowel sounds. Soft, nondistended. Tenderness to palpation in the lower abdominal quadrants, especially the suprapubic and right lower quadrant. EXTREMITIES: No cyanosis, clubbing, or edema. LABORATORY DATA: CBC with a white blood cell count of 14.3, hemoglobin 12, hematocrit 37.3, and platelets 333. Chemistry with a sodium of 138, potassium 3, chloride 102, CO2 of 27, BUN less than 4, creatinine 0.59, glucose 68. IMAGING DATA: No current GI imaging is available for review. ASSESSMENT AND PLAN: The patient is a 58-year-old female with no significant past medical history, presenting with acute complicated diverticulitis. The patient is presenting with acute onset of suprapubic abdominal pain that was associated with an elevated white blood cell count and imaging consistent with acute diverticulitis. She initially responded well to IV antibiotics, but experienced increased nausea, vomiting, and abdominal pain on hospital day 3, concerning for an additional process and/or complication. Repeat CT scan obtained on November 02, 2018, showed stable findings, but did show a 1.5 cm intramural abscess within the colonic wall in the sigmoid colon, that was unchanged when compared to the prior imaging study. Since being placed on IV Zosyn, she has responded well over the last 48 to 72 hours, but with advancement of her diet, she still continued to have significant suprapubic and right lower quadrant abdominal pain. RECOMMENDATIONS: 1. We would continue the patient on Zosyn and can be used as monotherapy. 2. We would obtain a repeat CT scan of the abdomen and pelvis for re-evaluation of this intramural abscess and possible resolution. If the patient's pain is not improving and there is no resolution of the abscess on imaging, then I would consider General Surgery consultation for surgical resection. 3. No endoscopic evaluation is indicated at this time due to increased risk of perforation. We will continue to follow, please call with any questions. Job ID: [id number]
[2018-11-06] MEDS: Piperacillin/Tazobactam 3.375 GM in Sodium Chloride 0.9% 100 ML IVPB SCH ×3 (05:43→17:54)
[2018-11-06] MEDS: Enoxaparin Sodium 40 MG/0.4 ML SYRINGE SC SCH (08:49)
[2018-11-06] MEDS: Famotidine 20 MG TAB PO SCH ×2 (08:49→21:03)
--- NOTE | 2018-11-06 11:10 | PRG ---
DATE OF SERVICE: 11/06/2018 REASON FOR CONSULTATION: Complicated diverticulitis. SUBJECTIVE: This morning, the patient states that she continues to have suprapubic/right lower quadrant abdominal pain, that is unchanged in terms of positioning or severity. She has been able to tolerate a full liquid diet over the last 24 to 48 hours with no significant worsening of her abdominal pain; however, her pain does not seem to be getting any better. Currently, she denies any nausea, vomiting, fevers, chills, or GI bleeding. OBJECTIVE: VITAL SIGNS: Temperature 98.7, pulse 66, blood pressure 141/82, respiratory rate 18, saturating 94% on room air. GENERAL: The patient is lying in bed, in no acute distress. Alert and oriented x4. CARDIOVASCULAR: Regular rate and rhythm. RESPIRATORY: Clear to auscultation bilaterally. ABDOMEN: Normoactive bowel sounds. Soft, nondistended. Tenderness to palpation in the lower abdominal quadrants especially the suprapubic and right lower quadrant. EXTREMITIES: No cyanosis, clubbing, or edema. LABORATORY DATA: No current studies are available for review. IMAGING DATA: No current GI imaging is available for review. ASSESSMENT AND PLAN: The patient is a 58-year-old female with no significant past medical history, presenting with acute complicated diverticulitis. 1. Acute complicated diverticulitis. a. The patient is presenting with acute onset of suprapubic abdominal pain, that was associated with an elevated white blood cell count and imaging consistent with acute diverticulitis. She initially responded well to IV antibiotics, but experienced increased nausea, vomiting, abdominal pain on hospital day #3. Imaging at that time was relatively stable, but did show continued presence of an intramural abscess measuring approximately 1.5 cm in size. She was subsequently transferred to IV Zosyn, and had improvement of her symptoms with this medication as well, but over the last 24 to 48 hours, her improvement seems of stalled with continued pain in the suprapubic and right lower quadrant. At this time, the patient has been on IV antibiotics one which she performed for approximately 7 days with continued abdominal pain, that is worrisome for further complication and/or nonresolution of the intramural abscess. If the intramural abscess is not responding and is not amenable to drainage by Interventional Radiology, then surgical consultation is warranted. RECOMMENDATIONS: 1. Would continue the patient on Zosyn as monotherapy. 2. We would repeat the CT scan of the abdomen and pelvis today for re-evaluation of the intramural abscess and/or possible complications with her diverticulitis. If the abscess is not resolving, I would recommend General Surgery evaluation or possible surgical intervention. 3. No endoscopic evaluation is indicated at this time due to increased risk of perforation with this modality. We will continue to follow. Please call with any questions. Job ID: [id number]
--- NOTE | 2018-11-06 11:25 | CT ---
CT OF ABDOMEN AND PELVIS PERFORMED WITH INTRAVENOUS CONTRAST ENHANCEMENT: HISTORY: Followup of diverticular abscess. COMPARISON: 10/30/18 and 11/02/18 exams. There is linear atelectasis in the left lung base with a small left pleural effusion. The liver once again shows an area of focal fatty infiltration adjacent to the falciform ligament. T he spleen is within normal limits of size. The pancreas shows no evidence of any mass or ductal dila tation. The gallbladder is not as distended as it was on the previous examination; however, there is some mild enhancement to the wall. Clinical correlation as to any symptoms that would suggest gallb ladder disease. Right and left adrenal glands are normal in appearance. Right and left kidneys are within normal rivera its of size. There is no evidence of obstruction. There is a tiny cyst involving the lower pole of the right kidney. There are small periaortic lymph nodes, none of which appear significantly enlarge d. CT OF PELVIS PERFORMED WITH CONTRAST ENHANCEMENT: Diverticulitis changes are noted of the sigmoid colon. There is evidence of a diverticular abscess w hich appears slightly more prominent than it did on the prior examination. On the previous 2 studies , there is a small air collection which was seen more along the left margin of the sigmoid colon near the rectosigmoid region. There is now a more multiloculated density which tracks along the posterio r and posterior right border of the uterus. These largest of these collections measures approximatel y 2.5 cm in size. Due to their location, these are not percutaneously drainable. There is also full ness or prominence to the cervix or posterior vaginal area. Clinical correlation as to an findings t hat would suggest there may be any type of fistulous connection at the level of the vagina. There is a tiny amount of air density seen in this area. IMPRESSION: 1. The gallbladder is not as distended as on the prior examination; however, there is mild gallbladd er wall enhancement. Clinical correlation as to any cholecystitis-type symptoms. 2. Tiny left pleural effusion with left lower lobe atelectasis. 3. The diverticulitis changes are again noted in the sigmoid colon with diverticular abscess. These are small multiloculated collections which are along the posterior and posterior right border of the uterus. The largest of these collections is 2.5 cm in size along the posterior right border of the uterus and fallopian tube region. These are not percutaneously drainable. In addition to these find ings, there is fullness to the cervix region or posterior vagina. Clinical correlation as to whether there is any fistulous connection related to the vagina. This multiloculated collection does appear slightly lager as compared to the previous study. POS: T[facility]
--- NOTE | 2018-11-06 14:30 | PDOC.PN ---
- Subjective Encounter Start Date: 11/06/18 Encounter Start Time: 14:28 Subjective: continues to have low grade lower abd pain .no nausea/vomiting -: able to tolerated PO intake - Objective Resuscitation Status - Order Detail: 10/30/18 17:02 Resuscitation Status Routine Resuscitation Status: FULL: Full Resuscitation Discussed with: Patient MAR Reviewed: Yes Vital Signs & Weight: Vital Signs (12 hours) Temp Pulse Resp BP Pulse Ox 11/06/18 08:00 98.7 F 66 18 141/82 H 94 L Weight Admit Weight 127 lb 7 oz Weight 127 lb 7 oz I&O: 11/05/18 11/06/18 11/07/18 06:59 06:59 06:59 Intake Total 3361 2727 Balance 3361 2727 Result Diagrams: 11/05/18 05:51 11/05/18 05:51 Additional Labs: Laboratory Tests 10/30/18 10/31/18 11/02/18 14:48 06:44 05:52 WBC 17.3 H 13.5 H 21.0 H 11/03/18 11/05/18 10:57 05:51 WBC 16.6 H 14.3 H Radiology Reviewed by me: Yes (CT abdo/pelvis-persistant intramural abscess 2.5 cm) Phys Exam - Physical Examination Constitutional: NAD HEENT: PERRLA, moist MMs, sclera anicteric, oral pharynx no lesions Neck: no nodes, no JVD, supple, full ROM Respiratory: no wheezing, no rales, no rhonchi, clear to auscultation bilateral Cardiovascular: RRR, no significant murmur Gastrointestinal: soft, non-tender, no distention, positive bowel sounds Musculoskeletal: no edema, pulses present Neurological: non-focal, normal sensation, moves all 4 limbs Psychiatric: normal affect, A&O x 3 Skin: no rash Dx/Plan (1) Diverticulitis Code(s): K57.92 - DVTRCLI OF INTEST, PART UNSP, W/O PERF OR ABSCESS W/O BLEED Status: Acute Comment: With intramural abscess (2) Hypokalemia Code(s): E87.6 - HYPOKALEMIA Status: Acute (3) Hyponatremia Code(s): E87.1 - HYPO-OSMOLALITY AND HYPONATREMIA Status: Resolved (4) Tobacco abuse Code(s): Z72.0 - TOBACCO USE Status: Chronic - Plan continue antibiotics, PT/OT, DVT proph w/SCDs cont conservative management.pt will want to avoid surgery if possible. -: rest per GI recs -: HD stable. -: am labs.replace lytes prn * . Review of Systems - Review of Systems Constitutional: weakness, malaise. negative: fever, chills, sweats, other Respiratory: negative: Cough, Dry, Shortness of Breath, Hemoptysis, SOB with Excertion, Pleuritic Pain, Sputum, Wheezing Cardiovascular: negative: chest pain, palpitations, orthopnea, paroxysmal nocturnal dyspnea, edema, light headedness, other Gastrointestinal: Abdominal Pain. negative: Nausea, Vomiting, Diarrhea, Constipation, Melena, Hematochezia, Other Genitourinary: negative: Dysuria, Frequency, Incontinence, Hematuria, Retention , Other Musculoskeletal: negative: Neck Pain, Shoulder Pain, Arm Pain, Back Pain, Hand Pain, Leg Pain, Foot Pain, Other Skin: negative: Rash, Lesions, Hitesh, Bruising, Other Neurological: negative: Weakness, Numbness, Incoordination, Change in Speech, Confusion, Seizures, Other - Medications/Allergies Allergies/Adverse Reactions: Allergies Allergy/AdvReac Type Severity Reaction Status Date / Time No Known Allergies Allergy Verified 10/04/13 13:29 Medications: Current Medications Acetaminophen (Tylenol) 650 mg PO Q4H PRN PRN Reason: Headache/Fever/Mild Pain (1-3) Last Admin: 11/03/18 11:03 Dose: 650 mg Acetaminophen (Tylenol) 650 mg [place] Q4H PRN PRN Reason: Headache/Fever/Mild Pain (1-3) Hydrocodone Bitart/Acetaminophen ([place] 5/325) 1 tab PO Q4H PRN PRN Reason: Moderate Pain (4-6) Last Admin: 11/05/18 22:13 Dose: 1 tab Hydrocodone Bitart/Acetaminophen ([place] 5/325) 2 tab PO Q4H PRN PRN Reason: Severe Pain (7-10) Enoxaparin Sodium (Lovenox) 40 mg SC 0900 [facility] Last Admin: 11/06/18 08:49 Dose: 40 mg Famotidine (Pepcid) 20 mg PO BID [facility] Last Admin: 11/06/18 08:49 Dose: 20 mg Guaifenesin/Dextromethorphan (Robitussin Dm) 15 ml PO Q4H PRN PRN Reason: Cough Piperacillin Sod/Tazobactam (Sod 3.375 gm/ Sodium Chloride) 100 mls @ 200 mls/ hr IVPB Q6HR [facility] Last Admin: 11/06/18 11:23 Dose: 100 mls Morphine Sulfate (Morphine) 4 mg SLOW IVP Q4H PRN PRN Reason: Moderate to Severe Pain (6-10) Last Admin: 11/03/18 00:00 Dose: 4 mg Ondansetron HCl (Zofran Odt) 4 mg PO Q6H PRN PRN Reason: Nausea/Vomiting Ondansetron HCl (Zofran) 4 mg IVP Q6H PRN PRN Reason: Nausea/Vomiting Last Admin: 11/03/18 23:00 Dose: 4 mg Polyethylene Glycol (Miralax) 17 gm PO DAILY PRN PRN Reason: Constipation Senna (Senokot) 2 tab PO HSPRN PRN PRN Reason: Constipation Senna/Docusate Sodium (Senokot S) 2 tab PO BID PRN PRN Reason: Constipation Sodium Chloride (Flush - Normal Saline) 10 ml IVF Q12HR [facility] Last Admin: 11/06/18 08:49 Dose: 10 ml Sodium Chloride (Flush - Normal Saline) 10 ml IVF PRN PRN PRN Reason: Saline Flush
[2018-11-06] MEDS: HYDROcodone/Acetaminophen 5/325 mg Tablet PO PRN (22:25)
[2018-11-07] MEDS: Piperacillin/Tazobactam 3.375 GM in Sodium Chloride 0.9% 100 ML IVPB SCH ×4 (00:22→17:18)
[2018-11-07] MEDS: Enoxaparin Sodium 40 MG/0.4 ML SYRINGE SC SCH (08:08)
[2018-11-07 08:09] LABS: Anion Gap 10 mmol/L (10-20); BUN (Urea Nitrogen) Less than 4 mg/dL (9.8-20.1); Calc. Creatinine Clearance 83 mL/min (70-130); Carbon Dioxide 28 mmol/L (22-29); Chloride 102 mmol/L (98-107); Estimated GFR-MDRD 88; Glucose 94 mg/dL (70-105); Potassium 3.7 mmol/L (3.5-5.1); Sodium 136 mmol/L (136-145)
[2018-11-07] MEDS: Famotidine 20 MG TAB PO SCH ×2 (08:09→21:48)
--- NOTE | 2018-11-07 13:57 | PDOC.PN ---
- Subjective Encounter Start Date: 11/07/18 Encounter Start Time: 13:55 Subjective: some pain in R lower quadrant .able to tolerate food OK -: no N/V - Objective Resuscitation Status - Order Detail: 10/30/18 17:02 Resuscitation Status Routine Resuscitation Status: FULL: Full Resuscitation Discussed with: Patient LORI Reviewed: Yes Vital Signs & Weight: Vital Signs (12 hours) Temp Pulse Resp BP Pulse Ox 11/07/18 08:00 96 11/07/18 07:27 97.8 F 60 18 128/79 96 Weight Admit Weight 127 lb 7 oz Weight 127 lb 7 oz I&O: 11/06/18 11/07/18 11/08/18 06:59 06:59 06:59 Intake Total 2727 2840 Balance 2727 2840 Result Diagrams: 11/05/18 05:51 11/07/18 07:02 Phys Exam - Physical Examination Constitutional: NAD HEENT: PERRLA, moist MMs, sclera anicteric, oral pharynx no lesions Neck: no nodes, no JVD, supple, full ROM Respiratory: no wheezing, no rales, no rhonchi, clear to auscultation bilateral Cardiovascular: RRR, no significant murmur Gastrointestinal: soft, no distention, positive bowel sounds mild TTP lower abdomen Musculoskeletal: no edema, pulses present Neurological: non-focal, normal sensation, moves all 4 limbs Psychiatric: normal affect, A&O x 3 Skin: no rash Dx/Plan (1) Diverticulitis Code(s): K57.92 - DVTRCLI OF INTEST, PART UNSP, W/O PERF OR ABSCESS W/O BLEED Status: Acute Comment: With intramural abscess (2) Hypokalemia Code(s): E87.6 - HYPOKALEMIA Status: Acute (3) Hyponatremia Code(s): E87.1 - HYPO-OSMOLALITY AND HYPONATREMIA Status: Resolved (4) Tobacco abuse Code(s): Z72.0 - TOBACCO USE Status: Chronic - Plan DVT proph w/SCDs discussed w GI. risk of abscess extension. -: will consult GS for evaluation if it needs to be surgicaly drained -: pt educated about the parker for surgical consultation as she was quite upset -: HD stable. Will check CBC tomorrow.on zosyn & clinically better * . Review of Systems - Review of Systems Constitutional: negative: fever, chills, sweats, weakness, malaise, other ENT: negative: Ear Pain, Ear Discharge, Nose Pain, Nose Discharge, Nose Congestion, Mouth Pain, Mouth Swelling, Throat Pain, Throat Swelling, Other Respiratory: negative: Cough, Dry, Shortness of Breath, Hemoptysis, SOB with Excertion, Pleuritic Pain, Sputum, Wheezing Cardiovascular: negative: chest pain, palpitations, orthopnea, paroxysmal nocturnal dyspnea, edema, light headedness, other Gastrointestinal: Abdominal Pain. negative: Nausea, Vomiting, Diarrhea, Constipation, Melena, Hematochezia, Other Genitourinary: negative: Dysuria, Frequency, Incontinence, Hematuria, Retention , Other Musculoskeletal: negative: Neck Pain, Shoulder Pain, Arm Pain, Back Pain, Hand Pain, Leg Pain, Foot Pain, Other Neurological: negative: Weakness, Numbness, Incoordination, Change in Speech, Confusion, Seizures, Other - Medications/Allergies Allergies/Adverse Reactions: Allergies Allergy/AdvReac Type Severity Reaction Status Date / Time No Known Allergies Allergy Verified 10/04/13 13:29 Medications: Current Medications Acetaminophen (Tylenol) 650 mg PO Q4H PRN PRN Reason: Headache/Fever/Mild Pain (1-3) Last Admin: 11/03/18 11:03 Dose: 650 mg Acetaminophen (Tylenol) 650 mg [place] Q4H PRN PRN Reason: Headache/Fever/Mild Pain (1-3) Hydrocodone Bitart/Acetaminophen ([place] 5/325) 1 tab PO Q4H PRN PRN Reason: Moderate Pain (4-6) Last Admin: 11/06/18 22:25 Dose: 1 tab Hydrocodone Bitart/Acetaminophen ([place] 5/325) 2 tab PO Q4H PRN PRN Reason: Severe Pain (7-10) Enoxaparin Sodium (Lovenox) 40 mg SC 0900 [facility] [place] Last Admin: 11/07/18 08:08 Dose: 40 mg Famotidine (Pepcid) 20 mg PO BID [facility] [place] Last Admin: 11/07/18 08:09 Dose: 20 mg Guaifenesin/Dextromethorphan (Robitussin Dm) 15 ml PO Q4H PRN PRN Reason: Cough Piperacillin Sod/Tazobactam (Sod 3.375 gm/ Sodium Chloride) 100 mls @ 200 mls/ hr IVPB Q6HR [facility] [place] Last Admin: 11/07/18 12:08 Dose: 100 mls Morphine Sulfate (Morphine) 4 mg SLOW IVP Q4H PRN PRN Reason: Moderate to Severe Pain (6-10) Last Admin: 11/03/18 00:00 Dose: 4 mg Ondansetron HCl (Zofran Odt) 4 mg PO Q6H PRN PRN Reason: Nausea/Vomiting Ondansetron HCl (Zofran) 4 mg IVP Q6H PRN PRN Reason: Nausea/Vomiting Last Admin: 11/03/18 23:00 Dose: 4 mg Polyethylene Glycol (Miralax) 17 gm PO DAILY PRN PRN Reason: Constipation Senna (Senokot) 2 tab PO HSPRN PRN PRN Reason: Constipation Senna/Docusate Sodium (Senokot S) 2 tab PO BID PRN PRN Reason: Constipation Sodium Chloride (Flush - Normal Saline) 10 ml IVF Q12HR [facility] [place] Last Admin: 11/07/18 08:09 Dose: 10 ml Sodium Chloride (Flush - Normal Saline) 10 ml IVF PRN PRN PRN Reason: Saline Flush
[2018-11-07] MEDS: HYDROcodone/Acetaminophen 5/325 mg Tablet PO PRN (21:47)
--- NOTE | 2018-11-07 22:22 | CON ---
DATE OF CONSULTATION: 11/07/2018 HISTORY OF PRESENT ILLNESS: A 58-year-old woman presented with abdominal pain for which she was admitted on 10/30/2018 for acute diverticulitis. The patient was initially started on ciprofloxacin and metronidazole. Pain which was initially rated at "12/10" on admission, is now plateaued at 5/10. The patient reports no fevers or chills. She is now having multiple loose bowel movements daily. She denies any nausea or vomiting. Repeat CT scan of the abdomen and pelvis was obtained yesterday which reveals active sigmoid colon diverticulitis with evolving small diverticular abscesses which are not amenable to percutaneous drainage. Antibiotic therapy was switched to piperacillin and tazobactam and General Surgery was consulted. At the time of my evaluation, the patient is awake and alert. She is tolerating full liquid diet. She ambulates with minimum difficulty. Her pain is adequately controlled on oral analgesics. PAST MEDICAL HISTORY: She denies any previous medical problems. SURGICAL HISTORY: The patient denies any previous surgeries. SOCIAL HISTORY: She is , lives at home with her . She smokes half a pack of cigarette per day. She did have a short period of time when she quit smoking, but ultimately she has smoked a total of approximately 15 pack years. She denies any ethanol or illicit drug abuse. FAMILY HISTORY: Notable for mother with hypertension and diabetes mellitus. Father with essential hypertension and tobacco-related COPD. She has a maternal grandmother with history of heart disease. There is no family history of cancer. PREHOSPITAL MEDICATIONS: None. CURRENT MEDICATIONS: Includes; 1. Piperacillin and tazobactam 3.375 g IV q.6 hours. 2. Hydrocodone 5/325 one p.o. q.4 hours p.r.n. pain. 3. Enoxaparin 40 mg subcutaneously daily. 4. P.r.n. antiemetics. ALLERGIES: THE PATIENT DENIES ANY KNOWN DRUG ALLERGIES. REVIEW OF SYSTEMS: Ten-point review of systems is essentially unremarkable except as stated in past medical history and chief complaint. PHYSICAL EXAMINATION: GENERAL: This reveals a 58-year-old normally developed woman, who is otherwise coherent and interactive and appears stated age. The patient is alert and oriented x3, appears to be in no acute distress at the time of my evaluation. VITAL SIGNS: Include blood pressure 128/79, pulse is 60, respiratory rate is 18, temperature is 97.8 degrees Fahrenheit, and oxygen saturation 96% on room air. HEART: Reveals regular rate and rhythm. No murmurs or gallops auscultated. LUNGS: Clear to auscultation bilaterally. Breathing, regular and unlabored. ABDOMEN: Soft and nondistended. She has right lower quadrant suprapubic tenderness to palpation with no gross rebound tenderness present. Liver and spleen nonpalpable below costal margin. NEUROLOGIC: Reveals no focal deficits present. LABORATORY FINDINGS: Today includes CBC with 14,300 white blood cells, hemoglobin and hematocrit stable at 12.0 and 37.3 respectively. Platelet count is 333,000. Metabolic profile; sodium 136, potassium 3.7, chloride is 102, bicarb is 28, BUN is less than 4, creatinine is 0.69, and glucose is 94. I have personally reviewed the CT scan of the abdomen and pelvis obtained yesterday, which reveals thickened sigmoid colon with associated inflammatory changes of the sigmoid mesocolon. There are small abscesses in the deep pelvis adjacent to the distal sigmoid colon and posterior to the uterus. The largest dimension is approximately 2.5 cm. There is no pneumoperitoneum present. IMPRESSION: Acute diverticulitis with small diverticular abscess. RECOMMENDATIONS: Continue with broad-spectrum antibiotic therapy. There is no acute surgical indication for this patient at this time; however, failure with medical therapy would necessitate laparoscopic abdominal washout and possible laparotomy with Donn's procedure. I did discuss these options with the patient. The patient is fully aware that a successful medical management will really need a Donn's procedure, which will be a two-stage operation for this patient. Ultimately, the patient will need colonoscopy once the acute diverticulitis has been resolved. Given this is the first bout of diverticulitis for this patient, there may not be any immediate need for surgical intervention if successful medical management is achieved. General Surgery will continue to follow along with the patient and make further recommendations as necessary. Thank you again, Dr. Delarosa, for allowing me the opportunity to participate in the care of this patient. Job ID: [id number]
--- NOTE | 2018-11-07 22:24 | PRG ---
DATE OF SERVICE: 11/07/2018 REASON FOR CONSULTATION: Complicated diverticulitis. SUBJECTIVE: Today, the patient states that her pain remains unchanged in terms of location and severity. She had been able to tolerate a full liquid diet over the last 48 hours and was advanced to more of a low-fiber solid diet today. Currently, she denies any nausea, vomiting, fevers, chills, or GI bleeding. OBJECTIVE: VITAL SIGNS: Temperature 97.7, pulse 60, blood pressure 129/75, respiratory rate 21, saturating 96% on room air. GENERAL: The patient is lying in bed, in no acute distress. Alert and oriented x4. CARDIOVASCULAR: Regular rate and rhythm. RESPIRATORY: Clear to auscultation bilaterally. ABDOMEN: Normoactive bowel sounds. Soft, nondistended. Tenderness to palpation in the lower abdominal quadrants, especially the suprapubic and right lower quadrant. EXTREMITIES: No cyanosis, clubbing, or edema. LABORATORY DATA: Chemistry with a sodium of 136, potassium 3.7, chloride 102, CO2 of 28, BUN less than 4, creatinine 0.69, and glucose 94. IMAGING DATA: CT of the abdomen and pelvis was obtained on November 06, 2018, which showed diverticulitis changes noted within the sigmoid colon. There was evidence of a diverticular abscess, which appeared slightly more prominent than it did on prior examinations. Now, there is a more multiloculated density which tracks along the posterior right border of the uterus with the largest of these collections measuring approximately 2.5 cm in size. Due to the location, they were not amenable to percutaneous drainage and there may be a possible fistulous connection at the level of the vagina. There was also a tiny amount of air density seen in this region as well. ASSESSMENT AND PLAN: The patient is a 58-year-old female with no significant past medical history, presenting with acute complicated diverticulitis. Acute complicated diverticulitis. The patient is presenting with acute onset of suprapubic abdominal pain that was associated with an elevated white blood cell count and imaging consistent with acute sigmoid diverticulitis. She initially responded well to IV antibiotics but experienced increased nausea, vomiting, and abdominal pain on hospital day 3. Imaging at that time was relatively stable, but did show a 1.5 cm intramural abscess within the sigmoid colon. She was subsequently transferred to IV Zosyn with improvement of her symptoms as well. However, her pain still continues despite administration of broader spectrum antibiotics. Repeat CT of the abdomen and pelvis was obtained on November 06, 2018, which showed now that the intramural abscess has slightly increased in size to 2.5 cm and now shows a multiloculated component consistent with a more complicated diverticulitis. At this point given the location of these multiloculated abscesses, it is not readily available for percutaneous drainage. RECOMMENDATIONS: 1. We will continue the patient on Zosyn as monotherapy, but could consider increasing to 4.5 g every 6 hours. 2. I would recommend General Surgery evaluation for possible surgical intervention/drainage of these abscesses. We will continue to follow. Please call with any questions. Job ID: [id number]
[2018-11-08] MEDS: Piperacillin/Tazobactam 3.375 GM in Sodium Chloride 0.9% 100 ML IVPB SCH ×4 (00:04→16:57)
[2018-11-08 08:12] LABS: #Basophils 0.1 thou/uL (0.0-0.2); #Eosinphils 0.6 thou/uL (0.0-0.7); #Lymphocytes 2.3 thou/uL (1.20-3.40); #Monocytes 0.8 thou/uL (0.11-0.59); #Neutrophils 6.7 thou/uL (1.40-6.50); %Basophils 1.2 % (0.0-1.0); %Eosinophils 5.6 % (0.0-10.0); %Lymphocytes 21.9 % (21.0-51.0); %Monocytes 7.5 % (0.0-10.0); %Neutrophils 63.8 % (42.0-75.0); Hemoglobin 14.3 g/dL (12.0-16.0); Mean Corpuscular HGB CONC 31.9 g/dL (32.0-36.0); Mean Corpuscular Volume 94.2 fL (78.0-98.0); Mean Platelet Volume 7.5 fL (7.4-10.4); Platelet Count 509 thou/uL (130-400); RBC Distribution Width 12.8 % (11.5-14.5); Red Blood Cell (RBC) Count 4.77 mill/uL (4.20-5.40); White Blood Cell (WBC) Count 10.4 thou/uL (4.8-10.8)
[2018-11-08] MEDS: Famotidine 20 MG TAB PO SCH ×2 (08:19→21:04)
[2018-11-08] MEDS: Enoxaparin Sodium 40 MG/0.4 ML SYRINGE SC SCH (08:19)
[2018-11-08 08:31] LABS: Anion Gap 11 mmol/L (10-20); BUN (Urea Nitrogen) Less than 4 mg/dL (9.8-20.1); Calc. Creatinine Clearance 81 mL/min (70-130); Carbon Dioxide 25 mmol/L (22-29); Chloride 104 mmol/L (98-107); Estimated GFR-MDRD 85; Glucose 87 mg/dL (70-105); Sodium 136 mmol/L (136-145)
--- NOTE | 2018-11-08 15:05 | PDOC.PN ---
- Subjective Encounter Start Date: 11/08/18 Encounter Start Time: 15:05 Subjective: feels better but still with some R LQ pain -: discussed surgical options w her multiple times as recommenede by GS -: she wants to proceed w surgery - Objective Resuscitation Status - Order Detail: 10/30/18 17:02 Resuscitation Status Routine Resuscitation Status: FULL: Full Resuscitation Discussed with: Patient LORI Reviewed: Yes Vital Signs & Weight: Vital Signs (12 hours) Temp Pulse Resp BP Pulse Ox 11/08/18 08:00 97 11/08/18 07:46 97.7 F 55 L 16 137/78 97 Weight Admit Weight 127 lb 7 oz Weight 127 lb 7 oz I&O: 11/07/18 11/08/18 11/09/18 06:59 06:59 06:59 Intake Total 2840 2340 240 Balance 2840 2340 240 Result Diagrams: 11/08/18 08:00 11/08/18 08:00 Phys Exam - Physical Examination Constitutional: NAD HEENT: PERRLA, moist MMs, sclera anicteric, oral pharynx no lesions Neck: no nodes, no JVD, supple, full ROM Respiratory: no wheezing, no rales, no rhonchi, clear to auscultation bilateral Cardiovascular: RRR, no significant murmur Gastrointestinal: soft, non-tender, no distention, positive bowel sounds Musculoskeletal: no edema, pulses present Neurological: non-focal, normal sensation, moves all 4 limbs Psychiatric: normal affect, A&O x 3 Skin: no rash Dx/Plan (1) Diverticulitis Code(s): K57.92 - DVTRCLI OF INTEST, PART UNSP, W/O PERF OR ABSCESS W/O BLEED Status: Acute Comment: With intramural abscess (2) Hypokalemia Code(s): E87.6 - HYPOKALEMIA Status: Acute (3) Hyponatremia Code(s): E87.1 - HYPO-OSMOLALITY AND HYPONATREMIA Status: Resolved (4) Tobacco abuse Code(s): Z72.0 - TOBACCO USE Status: Chronic - Plan DVT proph w/SCDs OR tomorrow. cont Zosyn -: discussed w pt and Dr. Rubio. -: pt wants me to fill out FMLA form -: Hd stable -: am labs.WBC getting better * . Review of Systems - Review of Systems Constitutional: negative: fever, chills, sweats, weakness, malaise, other ENT: negative: Ear Pain, Ear Discharge, Nose Pain, Nose Discharge, Nose Congestion, Mouth Pain, Mouth Swelling, Throat Pain, Throat Swelling, Other Respiratory: negative: Cough, Dry, Shortness of Breath, Hemoptysis, SOB with Excertion, Pleuritic Pain, Sputum, Wheezing Cardiovascular: negative: chest pain, palpitations, orthopnea, paroxysmal nocturnal dyspnea, edema, light headedness, other Gastrointestinal: Abdominal Pain. negative: Nausea, Vomiting, Diarrhea, Constipation, Melena, Hematochezia, Other Genitourinary: negative: Dysuria, Frequency, Incontinence, Hematuria, Retention , Other Musculoskeletal: negative: Neck Pain, Shoulder Pain, Arm Pain, Back Pain, Hand Pain, Leg Pain, Foot Pain, Other Neurological: negative: Weakness, Numbness, Incoordination, Change in Speech, Confusion, Seizures, Other - Medications/Allergies Allergies/Adverse Reactions: Allergies Allergy/AdvReac Type Severity Reaction Status Date / Time No Known Allergies Allergy Verified 10/04/13 13:29 Medications: Current Medications Acetaminophen (Tylenol) 650 mg PO Q4H PRN PRN Reason: Headache/Fever/Mild Pain (1-3) Last Admin: 11/03/18 11:03 Dose: 650 mg Acetaminophen (Tylenol) 650 mg [place] Q4H PRN PRN Reason: Headache/Fever/Mild Pain (1-3) Hydrocodone Bitart/Acetaminophen ([place] 5/325) 1 tab PO Q4H PRN PRN Reason: Moderate Pain (4-6) Last Admin: 11/07/18 21:47 Dose: 1 tab Hydrocodone Bitart/Acetaminophen ([place] 5/325) 2 tab PO Q4H PRN PRN Reason: Severe Pain (7-10) Enoxaparin Sodium (Lovenox) 40 mg SC 0900 [facility] Last Admin: 11/08/18 08:19 Dose: 40 mg Famotidine (Pepcid) 20 mg PO BID [facility] Last Admin: 11/08/18 08:19 Dose: 20 mg Guaifenesin/Dextromethorphan (Robitussin Dm) 15 ml PO Q4H PRN PRN Reason: Cough Piperacillin Sod/Tazobactam (Sod 3.375 gm/ Sodium Chloride) 100 mls @ 200 mls/ hr IVPB Q6HR [facility] Last Admin: 11/08/18 12:52 Dose: 100 mls Morphine Sulfate (Morphine) 4 mg SLOW IVP Q4H PRN PRN Reason: Moderate to Severe Pain (6-10) Last Admin: 11/03/18 00:00 Dose: 4 mg Ondansetron HCl (Zofran Odt) 4 mg PO Q6H PRN PRN Reason: Nausea/Vomiting Ondansetron HCl (Zofran) 4 mg IVP Q6H PRN PRN Reason: Nausea/Vomiting Last Admin: 11/03/18 23:00 Dose: 4 mg Polyethylene Glycol (Miralax) 17 gm PO DAILY PRN PRN Reason: Constipation Senna (Senokot) 2 tab PO HSPRN PRN PRN Reason: Constipation Senna/Docusate Sodium (Senokot S) 2 tab PO BID PRN PRN Reason: Constipation Sodium Chloride (Flush - Normal Saline) 10 ml IVF Q12HR [facility] Last Admin: 11/08/18 08:22 Dose: 10 ml Sodium Chloride (Flush - Normal Saline) 10 ml IVF PRN PRN PRN Reason: Saline Flush
--- NOTE | 2018-11-08 15:37 | PRG ---
DATE OF SERVICE: 11/08/2018 SUBJECTIVE: Ms. Rollins is a 58-year-old woman, admitted on 10/30/2018 with acute diverticulitis. The patient was initially started on IV antibiotics, ciprofloxacin and metronidazole. A week later, a repeat CT scan of the abdomen and pelvis revealed pelvic abscesses associated with acute diverticulitis which is poorly resolving. The patient was switched over to piperacillin and tazobactam. She has been on the piperacillin and tazobactam now for the last 48 hours. She is still complaining of 5 to 6/10 lower abdominal pain. There were multiple loose bowel movements today. OBJECTIVE: VITAL SIGNS: Today include blood pressure of 137/78, pulse 55, respiratory rate is 16, temperature 97.7 degrees Fahrenheit, oxygen saturations 97% on room air. HEART: Reveals regular rate and rhythm. No murmurs or gallops auscultated. LUNGS: Clear to auscultation bilaterally. Breathing, regular and unlabored. ABDOMEN: Soft with right greater than left lower quadrant tenderness to palpation. She has a positive rebound tenderness present. Liver and spleen nonpalpable below costal margin. LABORATORY FINDINGS: Today include a CBC with 10,400 white blood cells, hemoglobin and hematocrit are 14.3 and 44.9 respectively. Platelet count is 509,000. Metabolic profile; sodium 136, potassium is 4.0, chloride is 104, bicarb 25, BUN less than 4, creatinine 0.71, glucose is 87. IMPRESSION: Acute sigmoid colon diverticulitis with pelvic abscesses. RECOMMENDATIONS: 1. Continue with broad-spectrum antibiotic therapy. 2. Laparoscopic abdominal washout and drainage of pelvic abscess. Above findings and recommendation have been discussed with the patient. I provided the patient with two options. One, continue with broad-spectrum antibiotic therapy for several more days. I believe this option is unlikely to be successful as the patient developed abscesses despite being on IV antibiotics, and probability of resolving these abscesses without drainage is quite low. Additionally, I informed the patient that pursuing laparoscopic abdominal washout and drainage of the pelvic abscess may be non-feasible, necessitating exploration and Donn procedure. The patient indicates understanding of information I provided her in presence of her nurse. She understands that if the abscesses not drainable laparoscopically due to significant adhesions that likely she will obtain a Donn procedure, which involves a temporary colostomy. The patient indicates understanding of information given. I did answer her questions. She wants to discuss with her and decide if she wants to proceed with surgery accordingly. Job ID: [id number]
[2018-11-08 16:43] LABS: Hemoglobin 14.5 g/dL (12.0-16.0); Mean Corpuscular Hemoglobin 30.4 pg (27.0-31.0); Mean Platelet Volume 7.5 fL (7.4-10.4); Platelet Count 504 thou/uL (130-400); RBC Distribution Width 12.8 % (11.5-14.5); Red Blood Cell (RBC) Count 4.77 mill/uL (4.20-5.40); White Blood Cell (WBC) Count 11.1 thou/uL (4.8-10.8)
[2018-11-08 16:59] LABS: Band 6 % (5-11); Eosinophils 6 % (0-10); Lymphocytes 20 % (21-51); MDiff Complete? YES; Monocytes 4 % (0-10); Neutrophil 61 % (42-75); Platelet Morphology Comment Appears Increased; RBC Morphology Normal; Reactive Lymphocytes 2 % (0-10)
--- NOTE | 2018-11-08 21:59 | PRG ---
DATE OF SERVICE: 11/08/2018 REASON FOR CONSULTATION: Complicated diverticulitis. SUBJECTIVE: Today, the patient states that her abdominal pain is slightly improved, if not the same as it was yesterday, suprapubic and right lower quadrant abdominal pain. She has been evaluated by the General Surgery Service with plans to take her to the operating room tomorrow for washout of the multiloculated abscess. Currently, she denies any nausea, vomiting, fevers, chills, or GI bleeding. OBJECTIVE: VITAL SIGNS: Temperature 97.8, pulse 68, blood pressure 124/80, respiratory rate 16, and saturating 96% on room air. GENERAL: The patient was lying in bed, in no acute distress. Alert and oriented x4. CARDIOVASCULAR: Regular rate and rhythm. RESPIRATORY: Clear to auscultation bilaterally. ABDOMEN: Normoactive bowel sounds. Soft and nondistended. Tenderness to palpation in the suprapubic and right lower quadrant. EXTREMITIES: No cyanosis, clubbing, or edema. LABORATORY DATA: No current studies are available for review. IMAGING DATA: No current GI imaging is available for review. ASSESSMENT AND PLAN: The patient is a 58-year-old female with no significant past medical history, presenting with acute uncomplicated diverticulitis. Acute complicated diverticulitis. The patient presented with acute onset of suprapubic abdominal pain with an elevated white blood cell count and imaging consistent with acute sigmoid diverticulitis. She initially responded well to IV antibiotics, but did experience some concerning symptoms including nausea, vomiting, and abdominal pain with repeat imaging at that time showing the presence of a 1.5 cm intramural abscess within the sigmoid colon. She was subsequently transferred to IV Zosyn, but continued to have pain with repeat CT scan showing enlargement of the intramural abscess and now showing a multiloculated component consistent with more complicated diverticulitis. General Surgery Service was then consulted for surgical management of this abscess given its poor position for percutaneous drainage. At this point, the patient is scheduled for surgery tomorrow for washout of this particular abscess. RECOMMENDATIONS: 1. We will continue the patient on Zosyn, but consider increasing to 4.5 g every 6 hours given the complicated nature of this diverticulitis and increasing size of the abscess. 2. Agree with General Surgery Service's recommendation in surgical management with washout of this particular abscess and possible repair of the colon, if necessary. At this point, we do not have anything additional to offer and we would defer to the Surgery Service for additional management of this complicated diverticulitis. Please call with any additional questions. Job ID: [id number]
[2018-11-08] MEDS: HYDROcodone/Acetaminophen 5/325 mg Tablet PO PRN (22:02)
[2018-11-09] MEDS: Piperacillin/Tazobactam 3.375 GM in Sodium Chloride 0.9% 100 ML IVPB SCH ×3 (00:03→11:20)
[2018-11-09 07:04] LABS: #Basophils 0.1 thou/uL (0.0-0.2); #Eosinphils 0.7 thou/uL (0.0-0.7); #Lymphocytes 3.4 thou/uL (1.20-3.40); #Monocytes 0.7 thou/uL (0.11-0.59); #Neutrophils 5.2 thou/uL (1.40-6.50); %Basophils 0.7 % (0.0-1.0); %Eosinophils 6.9 % (0.0-10.0); %Lymphocytes 34.1 % (21.0-51.0); %Monocytes 6.6 % (0.0-10.0); %Neutrophils 51.7 % (42.0-75.0); Hemoglobin 15.6 g/dL (12.0-16.0); Mean Corpuscular HGB CONC 31.8 g/dL (32.0-36.0); Mean Corpuscular Hemoglobin 30.3 pg (27.0-31.0); Mean Corpuscular Volume 95.6 fL (78.0-98.0); Mean Platelet Volume 8.3 fL (7.4-10.4); Platelet Count 502 thou/uL (130-400); RBC Distribution Width 13.1 % (11.5-14.5); Red Blood Cell (RBC) Count 5.16 mill/uL (4.20-5.40)
[2018-11-09 07:19] LABS: Anion Gap 15 mmol/L (10-20); BUN (Urea Nitrogen) Less than 4 mg/dL (9.8-20.1); Calc. Creatinine Clearance 70 mL/min (70-130); Calcium 9.5 mg/dL (7.8-10.44); Carbon Dioxide 25 mmol/L (22-29); Chloride 102 mmol/L (98-107); Estimated GFR-MDRD 72; Glucose 89 mg/dL (70-105); Potassium 3.8 mmol/L (3.5-5.1); Sodium 138 mmol/L (136-145)
[2018-11-09] MEDS: Enoxaparin Sodium 40 MG/0.4 ML SYRINGE SC SCH (08:28)
[2018-11-09] MEDS: Famotidine 20 MG TAB PO SCH ×2 (08:28→23:26)
[2018-11-09 09:27] LABS: INR-International Normal Ratio 1.1; Prothrombin Time 14.4 SEC (12.0-14.7)
[2018-11-09] MEDS ORDERED: Bupivacaine/Epinephrine 0.25% 30 ML VIAL ONE (11:55)
[2018-11-09] MEDS ORDERED: Neomycin-Polymyxin 1 ML AMP ONE (11:55)
[2018-11-09] MEDS ORDERED: Fentanyl 100 MCG/2 ML VIAL ONE ×4 (12:15→14:36)
[2018-11-09] MEDS ORDERED: traMADol HCl 50 MG TAB PO PRN ×2 (13:40)
[2018-11-09] MEDS ORDERED: Morphine 4 MG/ML VIAL SLOW IVP PRN (13:45)
[2018-11-09] MEDS ORDERED: Promethazine HCl 25 MG/ML VIAL IM PRN (14:03)
[2018-11-09] MEDS ORDERED: Promethazine HCl 25 MG/ML VIAL SLOW IVP PRN (14:03)
[2018-11-09] MEDS ORDERED: Ondansetron HCl/PF 4 MG/2 ML Vial IVP PRN (14:03)
[2018-11-09] MEDS ORDERED: ePHEDrine 50 MG/ML VIAL ONE (14:18)
[2018-11-09] MEDS ORDERED: Ondansetron PF 4 MG/2 ML Vial ONE (14:18)
[2018-11-09] MEDS ORDERED: Rocuronium Bromide 10 MG/ML (10ML VIAL) ONE (14:18)
[2018-11-09] MEDS ORDERED: PROPOFOL 200 MG/20 ML VIAL ONE (14:18)
[2018-11-09] MEDS ORDERED: Glycopyrrolate 0.2 MG/ML 5 ML SYRINGE ONE (14:18)
[2018-11-09] MEDS ORDERED: Lidocaine 1% PF 5 ML VIAL ONE (14:18)
[2018-11-09] MEDS: metroNIDAZOLE 500 MG TAB PO SCH ×2 (15:02→20:42)
[2018-11-09] MEDS: Ibuprofen 600 MG TAB PO SCH ×2 (15:02→23:26)
--- NOTE | 2018-11-09 15:54 | PDOC.PN ---
- Subjective Encounter Start Date: 11/09/18 Encounter Start Time: 15:53 Subjective: s/p Sx for intra abdominal abscess -: no colostomy required-formal report pending -: feels ok but w abd pain - Objective Resuscitation Status - Order Detail: 10/30/18 17:02 Resuscitation Status Routine Resuscitation Status: FULL: Full Resuscitation Discussed with: Patient LORI Reviewed: Yes Vital Signs & Weight: Vital Signs (12 hours) Temp Pulse Resp BP Pulse Ox 11/09/18 08:00 97.7 F 62 16 126/78 97 Weight Admit Weight 127 lb 7 oz Weight 127 lb 7 oz I&O: 11/08/18 11/09/18 11/10/18 06:59 06:59 06:59 Intake Total 2340 1240 Balance 2340 1240 Result Diagrams: 11/09/18 06:30 11/09/18 06:30 Phys Exam - Physical Examination Constitutional: NAD sleepy from anesthesia HEENT: PERRLA, moist MMs, sclera anicteric, oral pharynx no lesions Neck: no nodes, no JVD, supple, full ROM Respiratory: no wheezing, no rales, no rhonchi, clear to auscultation bilateral Cardiovascular: RRR, no significant murmur post -op Musculoskeletal: no edema, pulses present Neurological: non-focal, normal sensation, moves all 4 limbs Dx/Plan (1) Diverticulitis Code(s): K57.92 - DVTRCLI OF INTEST, PART UNSP, W/O PERF OR ABSCESS W/O BLEED Status: Acute Comment: With intramural abscess (2) Hypokalemia Code(s): E87.6 - HYPOKALEMIA Status: Acute (3) Hyponatremia Code(s): E87.1 - HYPO-OSMOLALITY AND HYPONATREMIA Status: Resolved (4) Tobacco abuse Code(s): Z72.0 - TOBACCO USE Status: Chronic - Plan respiratory therapy, DVT proph w/SCDs post op care. pain control -: cont ABx. changed to Po -: appreciate GI and GS input -: am labs * . Review of Systems - Review of Systems Gastrointestinal: Abdominal Pain - Medications/Allergies Allergies/Adverse Reactions: Allergies Allergy/AdvReac Type Severity Reaction Status Date / Time No Known Allergies Allergy Verified 10/04/13 13:29 Medications: Current Medications Acetaminophen (Tylenol) 650 mg MD Q4H PRN PRN Reason: Headache/Fever/Mild Pain (1-3) Acetaminophen (Tylenol) 1,000 mg PO Q6HR [facility] Ciprofloxacin (Cipro) 500 mg PO 06,1999 [facility] Enoxaparin Sodium (Lovenox) 40 mg SC 0900 [facility] Last Admin: 11/09/18 08:28 Dose: Not Given Famotidine (Pepcid) 20 mg PO BID [facility] Last Admin: 11/09/18 08:28 Dose: Not Given Fentanyl (Pacu-Sublimaze) 50 mcg SLOW IVP Q10MIN PRN PRN Reason: Moderate to Severe Pain (6-10) Stop: 11/09/18 17:03 Guaifenesin/Dextromethorphan (Robitussin Dm) 15 ml PO Q4H PRN PRN Reason: Cough Ibuprofen (Motrin) 600 mg PO Q8HR [facility] Last Admin: 11/09/18 15:02 Dose: 600 mg Metronidazole (Flagyl) 500 mg PO TID [facility] Last Admin: 11/09/18 15:02 Dose: 500 mg Morphine Sulfate (Morphine) 4 mg SLOW IVP Q4H PRN PRN Reason: Breakthrough Pain Ondansetron HCl (Zofran Odt) 4 mg PO Q6H PRN PRN Reason: Nausea/Vomiting Ondansetron HCl (Zofran) 4 mg IVP Q6H PRN PRN Reason: Nausea/Vomiting Last Admin: 11/03/18 23:00 Dose: 4 mg Ondansetron HCl (Pacu-Zofran) 4 mg IVP ONE PRN PRN Reason: Nausea/Vomiting Stop: 11/09/18 17:03 Promethazine HCl (Pacu-Phenergan) 6.25 mg SLOW IVP ONE PRN PRN Reason: Nausea/Vomiting Stop: 11/09/18 17:03 Promethazine HCl (Pacu-Phenergan) 6.25 mg IM ONE PRN PRN Reason: Nausea/Vomiting Stop: 11/09/18 17:03 Sodium Chloride (Flush - Normal Saline) 10 ml IVF Q12HR [facility] Last Admin: 11/09/18 11:19 Dose: 10 ml Sodium Chloride (Flush - Normal Saline) 10 ml IVF PRN PRN PRN Reason: Saline Flush Tramadol HCl (Ultram) 50 mg PO Q6H PRN PRN Reason: Moderate Pain (4-6) Tramadol HCl (Ultram) 100 mg PO Q6H PRN PRN Reason: Severe Pain (7-10)
[2018-11-09] MEDS: Acetaminophen 500 MG TAB PO SCH (16:25)
--- NOTE | 2018-11-09 20:01 | OP ---
DATE OF PROCEDURE: 11/09/2018 PREOPERATIVE DIAGNOSES: 1. Acute sigmoid diverticulitis. 2. Diverticular abscess. POSTOPERATIVE DIAGNOSES: 1. Acute sigmoid diverticulitis. 2. Diverticular abscess. OPERATION PERFORMED: Laparoscopic abdominal washout and drainage of pelvic abscess. ANESTHESIA: General endotracheal. ESTIMATED BLOOD LOSS: 10 mL. FLUIDS GIVEN: 1000 mL of crystalloid. COUNTS: Sponge and instrument counts were verified as correct x2. COMPLICATIONS: None apparent at the time of operation. INDICATIONS FOR OPERATION: This is a 58-year-old woman with history of diverticulitis who on repeat CT scan of abdomen and pelvis was found with a diverticular abscess while on antibiotics. Serial examination reveals persistent lower abdominal pain with peritoneal signs. The patient has returned to the operating room today for laparoscopic abdominal washout and drainage of said pelvic abscess. Findings are consistent with resolving acute sigmoid colon diverticulitis with small pelvic abscess between the uterus and the sigmoid colon. This was purulent pus that was easily drained. DESCRIPTION OF OPERATION: Informed consent obtained from the patient, she was brought to the operating room and placed in supine position. Following general anesthesia, the abdomen was sterilely prepped and draped in usual fashion. The skin below the umbilicus was infiltrated with 0.25% Marcaine with epinephrine. A small curvilinear infraumbilical incision was made using 11 scalpel. The umbilical stalk was grasped with Idalmis and elevated. Veress needle was inserted through the incision and placed in the peritoneal cavity through which the abdomen was insufflated with 3 L of CO2 gas. Intraabdominal pressure was noted at 1 mmHg. Following abdominal insufflation, Veress needle was removed and replaced with a 5-mm trocar, introduced using a Visiport. Laparoscopy confirmed proper placement of the port. No injuries to underlying structures. Additional laparoscopy reveals the pelvis was obscured by omental and small bowel adhesions. Under direct laparoscopy, two 5 mm lateral ports were placed bilaterally after the overlying skin was infiltrated with 0.25% Marcaine with epinephrine. Appropriate incision was made. The patient was placed in a Trendelenburg position, rotated to her left. I then introduced the [employer] grasper through the umbilical port using this to reduce the small bowel from the pelvis, breaking down loculations as they were encountered. The omentum was mobilized off the pelvis. We were then able to follow the sigmoid colon down into the rectosigmoid junction and medial to this was an adhesion between the sigmoid colon and the uterus. Once the fibrinous inflammatory tissues were broken down, a small abscess pocket was evacuated with an Endo suction catheter. The pocket was then copiously irrigated with saline. The rest of the small bowel was noted to be free. No further adhesions noted. Finding no other pathology, laparoscopy was terminated here and a #19 Shawn drain was introduced into the pelvis with the tip residing in the space between the uterus and the sigmoid colon. The drain was allowed to exit the abdominal cavity through the left lateral port securing this to anterior abdominal wall using 2-0 silk suture. The abdomen was desufflated. Remainder of the ports were removed and accounted for. The skin incision was closed using 4-0 Monocryl suture in a subcuticular fashion. Dermabond was applied over incisional closure. The patient tolerated the operation without any apparent complication and was returned to the recovery room in satisfactory condition. Job ID: [id number]
[2018-11-09] MEDS: Ciprofloxacin 500 MG TAB PO SCH (20:42)
[2018-11-10] MEDS: Acetaminophen 500 MG TAB PO SCH ×5 (01:30→20:01)
[2018-11-10] MEDS: Ciprofloxacin 500 MG TAB PO SCH ×2 (05:25→20:02)
[2018-11-10] MEDS: Ibuprofen 600 MG TAB PO SCH ×3 (06:09→22:17)
[2018-11-10 07:37] LABS: Mean Corpuscular HGB CONC 32.2 g/dL (32.0-36.0); Mean Corpuscular Hemoglobin 29.7 pg (27.0-31.0); Mean Corpuscular Volume 92.4 fL (78.0-98.0); Mean Platelet Volume 7.1 fL (7.4-10.4); Platelet Count 534 thou/uL (130-400); Red Blood Cell (RBC) Count 4.36 mill/uL (4.20-5.40); White Blood Cell (WBC) Count 13.2 thou/uL (4.8-10.8)
[2018-11-10 07:57] LABS: Anion Gap 10 mmol/L (10-20); BUN (Urea Nitrogen) 5 mg/dL (9.8-20.1); Band 2 % (5-11); Calc. Creatinine Clearance 94 mL/min (70-130); Calcium 8.7 mg/dL (7.8-10.44); Carbon Dioxide 23 mmol/L (22-29); Chloride 104 mmol/L (98-107); Eosinophils 2 % (0-10); Estimated GFR-MDRD Greater than 90; Glucose 78 mg/dL (70-105); Lymphocytes 16 % (21-51); MDiff Complete? YES; Monocytes 4 % (0-10); Neutrophil 73 % (42-75); Platelet Morphology Comment Appears Increased; Potassium 3.9 mmol/L (3.5-5.1); RBC Morphology Normal; Reactive Lymphocytes 2 % (0-10); Sodium 133 mmol/L (136-145)
[2018-11-10] MEDS: Enoxaparin Sodium 40 MG/0.4 ML SYRINGE SC SCH (08:27)
[2018-11-10] MEDS: metroNIDAZOLE 500 MG TAB PO SCH ×3 (08:27→20:02)
[2018-11-10] MEDS: Famotidine 20 MG TAB PO SCH ×2 (08:27→20:02)
[2018-11-10] MEDS: Ondansetron ODT 4 MG TAB PO PRN (09:41)
--- NOTE | 2018-11-10 15:33 | PDOC.PN ---
- Subjective Encounter Start Date: 11/10/18 Encounter Start Time: 15:28 Subjective: feels better. no new complaints -: abd pain tolerable - Objective Resuscitation Status - Order Detail: 10/30/18 17:02 Resuscitation Status Routine Resuscitation Status: FULL: Full Resuscitation Discussed with: Scott SANDOVAL Reviewed: Yes Vital Signs & Weight: Vital Signs (12 hours) Temp Pulse Resp BP Pulse Ox 11/10/18 09:00 97 11/10/18 08:09 97.9 F 60 16 100/63 97 11/10/18 04:47 97.8 F 54 L 16 96/61 99 Weight Admit Weight 127 lb 7 oz Weight 127 lb 7 oz I&O: 11/09/18 11/10/18 11/11/18 06:59 06:59 06:59 Intake Total 1240 1250 Output Total 35 Balance 1240 1215 Result Diagrams: 11/10/18 06:59 11/10/18 06:59 Phys Exam - Physical Examination Constitutional: NAD HEENT: PERRLA, moist MMs, sclera anicteric, oral pharynx no lesions Neck: no nodes, no JVD, supple, full ROM Respiratory: no wheezing, no rales, no rhonchi, clear to auscultation bilateral Cardiovascular: RRR, no significant murmur, no rub Gastrointestinal: soft, non-tender, no distention, positive bowel sounds Musculoskeletal: no edema, pulses present Neurological: non-focal, normal sensation, moves all 4 limbs Psychiatric: normal affect, A&O x 3 Skin: no rash Dx/Plan (1) Diverticulitis Code(s): K57.92 - DVTRCLI OF INTEST, PART UNSP, W/O PERF OR ABSCESS W/O BLEED Status: Acute Comment: With intramural abscess (2) Hypokalemia Code(s): E87.6 - HYPOKALEMIA Status: Acute (3) Hyponatremia Code(s): E87.1 - HYPO-OSMOLALITY AND HYPONATREMIA Status: Resolved (4) Tobacco abuse Code(s): Z72.0 - TOBACCO USE Status: Chronic - Plan DVT proph w/SCDs post -op care.cont PO ABx. -: ambulate -: add Pt -: home next 24-48 hours * . Review of Systems - Review of Systems Constitutional: weakness, malaise. negative: fever, chills, sweats, other Respiratory: negative: Cough, Dry, Shortness of Breath, Hemoptysis, SOB with Excertion, Pleuritic Pain, Sputum, Wheezing Cardiovascular: negative: chest pain, palpitations, orthopnea, paroxysmal nocturnal dyspnea, edema, light headedness, other Gastrointestinal: negative: Nausea, Vomiting, Abdominal Pain, Diarrhea, Constipation, Melena, Hematochezia, Other Musculoskeletal: negative: Neck Pain, Shoulder Pain, Arm Pain, Back Pain, Hand Pain, Leg Pain, Foot Pain, Other - Medications/Allergies Allergies/Adverse Reactions: Allergies Allergy/AdvReac Type Severity Reaction Status Date / Time No Known Allergies Allergy Verified 10/04/13 13:29 Medications: Current Medications Acetaminophen (Tylenol) 650 mg [place] Q4H PRN PRN Reason: Headache/Fever/Mild Pain (1-3) Acetaminophen (Tylenol) 1,000 mg PO 0200,0800,1400,2000 [facility] Last Admin: 11/10/18 13:35 Dose: 1,000 mg Ciprofloxacin (Cipro) 500 mg PO 0600,1999 [facility] Last Admin: 11/10/18 05:25 Dose: 500 mg Enoxaparin Sodium (Lovenox) 40 mg SC 0900 [facility] Last Admin: 11/10/18 08:27 Dose: 40 mg Famotidine (Pepcid) 20 mg PO BID [facility] Last Admin: 11/10/18 08:27 Dose: 20 mg Guaifenesin/Dextromethorphan (Robitussin Dm) 15 ml PO Q4H PRN PRN Reason: Cough Ibuprofen (Motrin) 600 mg PO Q8HR [facility] Last Admin: 11/10/18 13:35 Dose: 600 mg Metronidazole (Flagyl) 500 mg PO TID [facility] Last Admin: 11/10/18 13:35 Dose: 500 mg Morphine Sulfate (Morphine) 4 mg SLOW IVP Q4H PRN PRN Reason: Breakthrough Pain Ondansetron HCl (Zofran Odt) 4 mg PO Q6H PRN PRN Reason: Nausea/Vomiting Last Admin: 11/10/18 09:41 Dose: 4 mg Ondansetron HCl (Zofran) 4 mg IVP Q6H PRN PRN Reason: Nausea/Vomiting Last Admin: 11/03/18 23:00 Dose: 4 mg Sodium Chloride (Flush - Normal Saline) 10 ml IVF Q12HR [facility] Last Admin: 11/10/18 08:28 Dose: 10 ml Sodium Chloride (Flush - Normal Saline) 10 ml IVF PRN PRN PRN Reason: Saline Flush Tramadol HCl (Ultram) 50 mg PO Q6H PRN PRN Reason: Moderate Pain (4-6) Tramadol HCl (Ultram) 100 mg PO Q6H PRN PRN Reason: Severe Pain (7-10) Last Admin: 11/09/18 20:42 Dose: 100 mg
--- NOTE | 2018-11-10 17:25 | PRG ---
DATE OF SERVICE: 11/10/2018 SUBJECTIVE: Ms. Rollins was seen this afternoon by Dr. Rubio and myself. She was sitting up at the edge of the bed and reported pain was well controlled. Previous nausea had resolved. She has not yet ambulated, but was tolerating a clear liquid diet. She denies bowel movements postoperatively as well as flatus. She has no complaints. Denies nausea, vomiting, and diarrhea at time of evaluation. She has voided since coming back from the OR. OBJECTIVE: VITAL SIGNS: Temperature 97.9, pulse 60, respirations 16, oxygen saturation 97% on room air, and blood pressure 100/63. GENERAL: Well-appearing elderly female, sitting up at edge of bed with no acute signs of distress. PULMONARY: Equal chest rise and fall. Breath sounds clear bilaterally. No signs of acute pulmonary distress. HEART: Regular rate and rhythm. No murmurs, gallops, or rubs. GI: Abdomen is soft, nondistended, and appropriately tender to palpation. Surgical wounds are clean, dry, and intact. Left lower quadrant ETHAN drain with minimal serosanguineous drainage involved. No signs of purulent discharge. EXTREMITIES: Gross motor and sensation intact. 2+ pulses in all extremities. No significant swelling noted. LABORATORY FINDINGS: White count 13.2, hemoglobin 13, hematocrit 40.3, and platelets 534. Sodium 133, potassium 3.4, chloride 104, carbon dioxide 23, BUN 5, creatinine 0.61, and glucose 78. DIAGNOSTIC FINDINGS: There are no diagnostic findings to report. ASSESSMENT: 1. Acute diverticulitis. 2. Abdominal abscess, status post fail of antibiotic trial. 3. Status post laparoscopic abdominal washout and drainage of pelvic abscess. PLAN: The patient can advance diet to full, but would wait for now to advance to regular diet. Encourage the patient to continue to ambulate in order to encourage return of bowel function. We will continue Cipro and Flagyl for now. Continue to monitor vital signs as well as white blood cell count for signs of infection. Continue ETHAN drain to left lower abdomen for now. We will see the patient again tomorrow for improvement. The patient was seen and examined by Dr. Tenorio this afternoon during rounds. Job ID: [id number]
[2018-11-11] MEDS: Acetaminophen 500 MG TAB PO SCH ×4 (01:57→20:25)
[2018-11-11] MEDS: Ciprofloxacin 500 MG TAB PO SCH ×2 (05:16→20:25)
[2018-11-11] MEDS: Ibuprofen 600 MG TAB PO SCH ×3 (05:16→21:33)
[2018-11-11 07:44] LABS: Anion Gap 14 mmol/L (10-20); BUN (Urea Nitrogen) 4 mg/dL (9.8-20.1); Calc. Creatinine Clearance 76 mL/min (70-130); Calcium 9.1 mg/dL (7.8-10.44); Carbon Dioxide 21 mmol/L (22-29); Chloride 105 mmol/L (98-107); Estimated GFR-MDRD 80; Glucose 91 mg/dL (70-105); Phosphorus 3.7 mg/dL (2.3-4.7); Potassium 3.6 mmol/L (3.5-5.1); Sodium 136 mmol/L (136-145)
[2018-11-11 08:33] LABS: #Eosinphils 0.8 thou/uL (0.0-0.7); #Monocytes 0.8 thou/uL (0.11-0.59); #Neutrophils 8.2 thou/uL (1.40-6.50); %Basophils 0.2 % (0.0-1.0); %Eosinophils 6.9 % (0.0-10.0); %Lymphocytes 16.6 % (21.0-51.0); %Monocytes 6.8 % (0.0-10.0); %Neutrophils 69.5 % (42.0-75.0); Hemoglobin 13.8 g/dL (12.0-16.0); Mean Corpuscular Hemoglobin 29.9 pg (27.0-31.0); Mean Corpuscular Volume 93.2 fL (78.0-98.0); Mean Platelet Volume 7.3 fL (7.4-10.4); Platelet Count 543 thou/uL (130-400); RBC Distribution Width 13.2 % (11.5-14.5); Red Blood Cell (RBC) Count 4.61 mill/uL (4.20-5.40); White Blood Cell (WBC) Count 11.7 thou/uL (4.8-10.8)
[2018-11-11] MEDS: Enoxaparin Sodium 40 MG/0.4 ML SYRINGE SC SCH (08:39)
[2018-11-11] MEDS: metroNIDAZOLE 500 MG TAB PO SCH ×3 (08:39→20:26)
[2018-11-11] MEDS: Famotidine 20 MG TAB PO SCH ×2 (08:39→20:26)
--- NOTE | 2018-11-11 13:37 | PRG ---
DATE OF SERVICE: 11/11/2018 SUBJECTIVE: The patient was seen this morning, sitting at edge of bed and well appearing. She had just came back from the restroom, but had not had a bowel movement. She is passing flatus this morning, which is a change from yesterday. She is tolerating full liquid diet and denies nausea or vomiting. This is also improved from yesterday. She denies fevers, chills, nausea, vomiting, and diarrhea. She was able to ambulate much more yesterday afternoon and pain is well controlled. OBJECTIVE: VITAL SIGNS: Temperature 98.1, pulse 68, respirations 16, oxygen saturation 100% on room air, and blood pressure 116/76. GENERAL: A well-appearing middle-aged female, sitting up at edge of bed with no signs of acute distress. PULMONARY: Equal chest rise and fall. Breath sounds clear bilaterally. No signs of acute pulmonary distress. HEART: Regular rate and rhythm. No murmurs, gallops, or rubs. GI: Abdomen is soft, nontender, and nondistended. Surgical wounds are clean, dry, and intact. Left lower quadrant ETHAN drain with minimal serosanguineous drainage present. No signs of purulent discharge. EXTREMITIES: Gross motor and sensation intact. A 2+ pulses in all extremities. No significant swelling noted. LABORATORY FINDINGS: White blood cell count 11.7, hemoglobin 13.8, hematocrit 43.0, and platelets 543. Sodium 136, potassium 3.6, chloride 105, carbon dioxide 21, BUN 14, creatinine 0.75, glucose 91, phosphorus 3.7, and magnesium 2.0. DIAGNOSTIC FINDINGS: There are no diagnostic findings to report. ASSESSMENT: 1. Acute diverticulitis. 2. Abdominal abscesses, status post fail of antibiotic trial, status post laparoscopic abdominal washout and drainage of pelvic abscess. PLAN: The patient can advance to a regular diet today as tolerated. I would continue to encourage her to ambulate. She should stay inpatient until she has a bowel movement. She should receive a total of 2 weeks of Cipro and Flagyl p.o. Surgery will discontinue her left lower quadrant ETHAN drain today. We will continue to monitor for signs of infection. The patient was discussed with Dr. Rubio this morning after rounds. Job ID: [id number]
--- NOTE | 2018-11-11 14:55 | PDOC.PN ---
- Subjective Encounter Start Date: 11/11/18 Encounter Start Time: 14:53 Subjective: feels much better. had a regular BM this morning -: walking in hallways w/o help -: abd pain controlled. no N/V - Objective Resuscitation Status - Order Detail: 10/30/18 17:02 Resuscitation Status Routine Resuscitation Status: FULL: Full Resuscitation Discussed with: Patient LORI Reviewed: Yes Vital Signs & Weight: Vital Signs (12 hours) Temp Pulse Resp BP Pulse Ox 11/11/18 12:00 98.1 F 68 16 116/76 100 11/11/18 08:44 98 11/11/18 08:00 97.6 F 68 16 103/68 98 Weight Admit Weight 127 lb 7 oz Weight 127 lb 7 oz I&O: 11/10/18 11/11/18 11/12/18 06:59 06:59 06:59 Intake Total 1250 905 Output Total 35 60 10 Balance 1215 845 -10 Result Diagrams: 11/11/18 06:36 11/11/18 06:36 Phys Exam - Physical Examination Constitutional: NAD HEENT: PERRLA, moist MMs, sclera anicteric, oral pharynx no lesions Neck: no nodes, no JVD, supple, full ROM Respiratory: no wheezing, no rales, no rhonchi, clear to auscultation bilateral Cardiovascular: RRR, no significant murmur, no rub Gastrointestinal: soft, non-tender, no distention, positive bowel sounds Musculoskeletal: no edema, pulses present Neurological: non-focal, normal sensation, moves all 4 limbs Psychiatric: normal affect, A&O x 3 Skin: no rash Dx/Plan (1) Diverticulitis Code(s): K57.92 - DVTRCLI OF INTEST, PART UNSP, W/O PERF OR ABSCESS W/O BLEED Status: Acute Comment: With intramural abscess (2) Hypokalemia Code(s): E87.6 - HYPOKALEMIA Status: Acute (3) Hyponatremia Code(s): E87.1 - HYPO-OSMOLALITY AND HYPONATREMIA Status: Resolved (4) Tobacco abuse Code(s): Z72.0 - TOBACCO USE Status: Chronic - Plan DVT proph w/SCDs cont cipro and flagyl.ambulate . -: advance diet .GS following -: DC home when Ok w GS -: hd stable * . Review of Systems - Review of Systems Constitutional: negative: fever, chills, sweats, weakness, malaise, other ENT: negative: Ear Pain, Ear Discharge, Nose Pain, Nose Discharge, Nose Congestion, Mouth Pain, Mouth Swelling, Throat Pain, Throat Swelling, Other Respiratory: negative: Cough, Dry, Shortness of Breath, Hemoptysis, SOB with Excertion, Pleuritic Pain, Sputum, Wheezing Cardiovascular: negative: chest pain, palpitations, orthopnea, paroxysmal nocturnal dyspnea, edema, light headedness, other Gastrointestinal: negative: Nausea, Vomiting, Abdominal Pain, Diarrhea, Constipation, Melena, Hematochezia, Other Genitourinary: negative: Dysuria, Frequency, Incontinence, Hematuria, Retention , Other Musculoskeletal: negative: Neck Pain, Shoulder Pain, Arm Pain, Back Pain, Hand Pain, Leg Pain, Foot Pain, Other Neurological: negative: Weakness, Numbness, Incoordination, Change in Speech, Confusion, Seizures, Other - Medications/Allergies Allergies/Adverse Reactions: Allergies Allergy/AdvReac Type Severity Reaction Status Date / Time No Known Allergies Allergy Verified 10/04/13 13:29 Medications: Current Medications Acetaminophen (Tylenol) 650 mg [place] Q4H PRN PRN Reason: Headache/Fever/Mild Pain (1-3) Acetaminophen (Tylenol) 1,000 mg PO 0200,0800,1400,2000 [facility] Last Admin: 11/11/18 14:42 Dose: 1,000 mg Ciprofloxacin (Cipro) 500 mg PO 0600,1999 [facility] Last Admin: 11/11/18 05:16 Dose: 500 mg Enoxaparin Sodium (Lovenox) 40 mg SC 0900 [facility] Last Admin: 11/11/18 08:39 Dose: 40 mg Famotidine (Pepcid) 20 mg PO BID [facility] Last Admin: 11/11/18 08:39 Dose: 20 mg Guaifenesin/Dextromethorphan (Robitussin Dm) 15 ml PO Q4H PRN PRN Reason: Cough Ibuprofen (Motrin) 600 mg PO Q8HR [facility] Last Admin: 11/11/18 14:42 Dose: 600 mg Metronidazole (Flagyl) 500 mg PO TID [facility] Last Admin: 11/11/18 14:42 Dose: 500 mg Morphine Sulfate (Morphine) 4 mg SLOW IVP Q4H PRN PRN Reason: Breakthrough Pain Ondansetron HCl (Zofran Odt) 4 mg PO Q6H PRN PRN Reason: Nausea/Vomiting Last Admin: 11/10/18 09:41 Dose: 4 mg Ondansetron HCl (Zofran) 4 mg IVP Q6H PRN PRN Reason: Nausea/Vomiting Last Admin: 11/03/18 23:00 Dose: 4 mg Sodium Chloride (Flush - Normal Saline) 10 ml IVF Q12HR [facility] Last Admin: 11/11/18 08:40 Dose: 10 ml Sodium Chloride (Flush - Normal Saline) 10 ml IVF PRN PRN PRN Reason: Saline Flush Tramadol HCl (Ultram) 50 mg PO Q6H PRN PRN Reason: Moderate Pain (4-6) Tramadol HCl (Ultram) 100 mg PO Q6H PRN PRN Reason: Severe Pain (7-10) Last Admin: 11/09/18 20:42 Dose: 100 mg
[2018-11-11] MEDS: Ondansetron ODT 4 MG TAB PO PRN (17:54)
[2018-11-12] MEDS: Acetaminophen 500 MG TAB PO SCH ×3 (00:53→14:05)
[2018-11-12] MEDS: Ibuprofen 600 MG TAB PO SCH ×2 (05:28→14:06)
[2018-11-12] MEDS: Ciprofloxacin 500 MG TAB PO SCH (05:28)
[2018-11-12] MEDS: metroNIDAZOLE 500 MG TAB PO SCH ×2 (08:40→14:06)
[2018-11-12] MEDS: Famotidine 20 MG TAB PO SCH (08:40)
[2018-11-12] MEDS: Enoxaparin Sodium 40 MG/0.4 ML SYRINGE SC SCH (08:40)
--- NOTE | 2018-11-12 14:36 | PRG ---
DATE OF SERVICE: 11/12/2018 SUBJECTIVE: The patient was sitting up this morning in bed with no signs of acute distress. She reported her pain was very well controlled. She slept well overnight. She has been consistently ambulating and sitting up. She has been passing flatus and had a bowel movement yesterday evening. She is tolerating a regular diet and is nontoxic appearing. She denies nausea, vomiting, or diarrhea at this time. OBJECTIVE: VITAL SIGNS: Temperature 98.0, pulse 62, respirations 16, oxygen saturation 97% on room air, blood pressure 117/75. GENERAL: Middle-aged female, sitting up in bed with no signs of acute distress. PULMONARY: Equal chest rise and fall. Breath sounds clear bilaterally. No signs of acute pulmonary distress. HEART: Regular rate and rhythm. No murmurs, gallops, or rubs. GI: Abdomen is soft, nontender, nondistended. Surgical wounds are clean, dry, and intact. Left lower abdominal quadrant ETHAN drain removed yesterday with dressing clean and dry. No signs of purulent drainage. EXTREMITIES: Normal gross sensation intact. Motor intact. 2+ pulses in all extremities. No significant swelling noted. LABORATORY FINDINGS: There are no laboratory findings to discuss. DIAGNOSTIC FINDINGS: There are no diagnostic findings to discuss. ASSESSMENT: 1. Acute diverticulitis. 2. Abdominal abscesses, status post fail of antibiotic trial and status post laparoscopic abdominal washout with drainage of pelvic abscess. PLAN: The patient is cleared to be discharged from a surgical standpoint. Her ETHAN drain was removed yesterday. She is to continue Cipro and Flagyl p.o. for a total of 2 weeks. She is to follow up with Dr. Rubio in clinic in 2 weeks with a CBC with diff as well as a CRP. She will also complete a CT of the abdomen and pelvis with IV contrast before her followup with Dr. Rubio. Prescriptions for the blood work, CT scan, and antibiotics were left in the patient's chart. The patient was discussed with Dr. Rubio this morning after rounds. Job ID: [id number]
[2018-11-12 15:20] VITALS: BP 128/68; TEMP 98.1
--- NOTE | 2018-11-13 03:44 | DIS ---
DATE OF ADMISSION: 10/30/2018 DATE OF DISCHARGE: 11/12/2018 CONDITION: At the time of discharge, stable and improved. DISCHARGE DISPOSITION: Home. PRIMARY CARE PHYSICIAN: Valentín Feliciano MD. IN-HOUSE CONSULTATION: 1. General Surgery, Dr. Rubio. 2. Gastroenterology, Dr. Gr. PROCEDURES DONE IN THE HOSPITAL: 1. CT scan of the abdomen and pelvis upon presentation, which shows such findings of acute diverticulitis in the sigmoid colon. 2. Repeat CT scan of the abdomen and pelvis on 11/02/2018, which shows small intramural abscess measuring 1.5 cm along the posterior wall of the sigmoid colon. 3. Abdominal ultrasound on 11/03/2018, which shows small amount of fluid in the Morison pouch and distended gallbladder without any evidence of cholelithiasis or cholecystitis. 4. Repeat CT scan of the abdomen and pelvis on 11/06/2018, which shows persistent abscess, which was getting somewhat bigger at 2.5 cm in size. 5. Surgical drainage of intramural abscess by Dr. Rubio on 11/09/2018, which was a laparoscopic abdominal washout and drainage. ETHAN drain was removed before discharge. DISCHARGE MEDICATIONS: 1. Ciprofloxacin 500 p.o. b.i.d. for 2 weeks. 2. Flagyl 500 t.i.d. for 2 weeks. 3. Florastor 250 mg for 20 days. HISTORY OF PRESENTING ILLNESS: Ms. Rollins is a very pleasant 58-year-old female with past medical history not really significant for anything except for tobacco abuse, who presented to the emergency room with complaints of abdominal pain. CT scan done initially showed diverticulitis and she was admitted on empiric IV antibiotics. She was hemodynamically stable upon presentation. Please see admission history and physical for further details. HOSPITAL COURSE: The patient did not improve quite significantly, so Gastroenterology was consulted and she underwent a repeat CT scan which showed formation of an abscess. Dr. Gr saw the patient and recommended continuation of high-dose Zosyn which was done, but the patient did not improve and a third CT scan showed progression of the intramural abscess. At this time, General Surgery was consulted and Dr. Rubio saw the patient and recommended drainage of the abscess laparoscopically with possibility of a temporary colostomy. The patient agreed to that and she underwent successful abdominal washout and drainage of the abscess without needing of colostomy. She came out of the OR with ETHAN drain, which was removed. By the time of discharge, she is having normal bowel movements, walking around in the hallways, is afebrile and is on a regular diet. She has no abdominal pain. She has been cleared for discharge from General Surgery perspective as well. She was seen and examined prior to discharge. PHYSICAL EXAMINATION: VITAL SIGNS: Stable. Blood pressure 117/75. ABDOMEN: Abdominal examination shows no tenderness, distention, rebound, guarding, or rigidity. CHEST: Clear to auscultation bilaterally. She will be discharged home and will follow up with Dr. Rubio in 2 weeks and primary care physician in 1 week. Discharge plan was discussed with the patient, who verbalized understanding. Total time spent, 35 minutes. Job ID: [id number]
== END 2018-11-12 15:18 | disposition home or self-care (01) | DRG 392 ==
LOC: ERS 13:34 → T4-B 16:10
PROVIDERS: ADMIT Internal Medicine; ATTEND Internal Medicine
PROC: 0W9G4ZZ Drainage of Peritoneal Cavity, Percutaneous Endoscopic Approach (ICD-10-PCS; principal; 2018-11-09)
DX: K57.20 Diverticulitis of large intestine with perforation and abscess without bleeding (principal); E87.1 Hypo-osmolality and hyponatremia; F17.210 Nicotine dependence, cigarettes, uncomplicated; E87.6 Hypokalemia; K44.9 Diaphragmatic hernia without obstruction or gangrene; N28.1 Cyst of kidney, acquired; K76.0 Fatty (change of) liver, not elsewhere classified; J43.9 Emphysema, unspecified; Z82.49 Family history of ischemic heart disease and other diseases of the circulatory system; Z83.3 Family history of diabetes mellitus
CPT/HCPCS: 36415; 74176; 74177; 76700; 80048; 80053; 81003; 81015; 83690; 83735; 84100; 85007; 85025; 85027; 85610; 85730; 86140; 96361; 96365; 96366; 96367; 96375; J0744; J1650; J1885; J2001; J2270; J2405; J2543; J2704; J3010; J3490; J7050; Q0162; Q9966; Q9967

== ENCOUNTER 2018-11-23 09:28 | Outpatient (CLI) | payer BC ==
--- NOTE | 2018-11-23 11:23 | CT ---
CT ABDOMEN AND PELVIS PERFORMED WITH CONTRAST ENHANCEMENT: Date: 11/23/18 HISTORY: Follow-up of diverticular abscess. COMPARISON: 11/06/18 study. FINDINGS: The lung bases are clear of any infiltrates. Lungs appear somewhat hyperexpanded with areas of air tr apping. The liver, spleen, and pancreas regions appear unremarkable. Gallbladder is also normal in appearance . The small hypodense area adjacent to the falciform ligament within the liver is stable and consiste nt with some focal fatty change. Right and left adrenal glands, and right and left kidneys are normal. There is no significant periaor tic or mesenteric adenopathy. CT of pelvis was performed with contrast enhancement. There is persistent wall thickening in the sigm oid colon and associated diverticular change. There is a persistent diverticular abscess. It is sligh tly smaller on the prior examination. There does not appear to be as much extension along the posteri or aspect of the uterus as compared to the prior examination. The abscess along the right side of the uterus is similar in appearance. The fullness to the lower uterine segment in the cervix region is l ess pronounced than on the prior study. IMPRESSION: The diverticular abscess within the pelvis shows some minimal improvement as compared to the prior ex am as discussed above. POS: TPC
[2018-11-23] MEDS ORDERED: Iopamidol 370 76% 100 ML VIAL ONE (12:03)
== END 2018-11-23 09:29 | disposition home or self-care (01) ==
LOC: BICCT 09:28
PROVIDERS: ATTEND Physician Assistant
DX: K57.92 Diverticulitis of intestine, part unspecified, without perforation or abscess without bleeding (principal); N73.9 Female pelvic inflammatory disease, unspecified
CPT/HCPCS: 74177; Q9967

== ENCOUNTER 2018-12-06 12:14 | Inpatient (IN) | payer BC ==
[2018-12-06] MEDS ORDERED: Ondansetron PF 4 MG/2 ML Vial ONE (13:36)
[2018-12-06 13:53] LABS: #Basophils 0.1 thou/uL (0.0-0.2); #Eosinphils 0.6 thou/uL (0.0-0.7); #Lymphocytes 3.5 thou/uL (1.20-3.40); #Monocytes 0.8 thou/uL (0.11-0.59); #Neutrophils 6.7 thou/uL (1.40-6.50); %Basophils 1.1 % (0.0-1.0); %Lymphocytes 29.9 % (21.0-51.0); %Monocytes 6.5 % (0.0-10.0); %Neutrophils 57.6 % (42.0-75.0); Hemoglobin 15.4 g/dL (12.0-16.0); Mean Corpuscular HGB CONC 31.7 g/dL (32.0-36.0); Mean Corpuscular Hemoglobin 29.3 pg (27.0-31.0); Mean Corpuscular Volume 92.5 fL (78.0-98.0); Mean Platelet Volume 7.7 fL (7.4-10.4); Platelet Count 398 thou/uL (130-400); RBC Distribution Width 12.7 % (11.5-14.5); Red Blood Cell (RBC) Count 5.25 mill/uL (4.20-5.40); White Blood Cell (WBC) Count 11.6 thou/uL (4.8-10.8)
[2018-12-06 14:12] LABS: ALT (SGPT) Less than 7 U/L (8-55); AST (SGOT) 13 U/L (5-34); Albumin 4.4 g/dL (3.5-5.0); Alkaline Phosphatase 101 U/L (40-150); Anion Gap 12 mmol/L (10-20); BUN (Urea Nitrogen) 8 mg/dL (9.8-20.1); Bilirubin, Total 0.8 mg/dL (0.2-1.2); Calc. Creatinine Clearance 0 mL/min (70-130); Carbon Dioxide 30 mmol/L (22-29); Chloride 97 mmol/L (98-107); Estimated GFR-MDRD 82; Globulin 3.6 g/dL (2.4-3.5); Glucose 89 mg/dL (70-105); Lipase 38 U/L (8-78); Potassium 3.5 mmol/L (3.5-5.1); Sodium 135 mmol/L (136-145)
[2018-12-06 14:17] LABS: Bilirubin Negative (Negative); Blood, Urine Negative (Negative); Clarity CLEAR (Clear); Glucose, Urine (Dipstick) Negative (Negative); Leukocyte Negative (Negative); Nitrite Negative (Negative); Protein, Urine (Dipstick) Negative (Neg-Trace); Specific Gravity, Urine 1.014 (1.002-1.036); Urobilinogen 0.2 mg/dL (0.2-1.0); pH, Urine 6.5 (5.0-9.0)
--- NOTE | 2018-12-06 14:37 | CT ---
CT ABDOMEN WITH CONTRAST CT PELVIS WITH CONTRAST: HISTORY: Abdominal pain. Nausea. Vomiting. COMPARISON: 11/06/2018, 11/23/2018. FINDINGS: Stable emphysematous changes of the lung bases. Heart size is normal. No significant pericardial fl uid. Visualized aorta has a normal caliber. No periaortic fat stranding. Redemonstration of a hypodensity involving the hepatic parenchyma near the falciform ligament likely representing focal fatty infiltration. No enhancing masses in the liver. The spleen, pancreas, and adrenal glands are unremarkable. Portal vein continues to be patent. Unremarkable gallbladder. No gastrohepatic, retrocrural, or periportal lymphadenopathy. Symmetric enhancement of the kidneys. Bilaterally, no obstructive uropathy. Limited evaluation of the alimentary canal by lack of oral contrast. Gastric mucosa, duodenum, and m ultiple normal-caliber small bowel loops are identified. Ileocecal junction is normal. There does a ppear to be some mild inflammatory change and fluid involving the base and mid portion of the appendi x. The distal portion of the appendix may have a small focus of air attenuation. There are divertic khoi in throughout the colon. Redemonstration of an extraluminal focus of air and fluid at the level of the mid sigmoid colon. There is adjacent inflammatory change. Overall, this area measures 4.0 x 4.9 cm. Specifically, the air fluid collection measures 2.8 x 2.2 cm. A diverticular abscess is fav ored. When compared to the previous examination, this abscess has increased in size. CT PELVIS: Decompressed urinary bladder. There is a small amount of fluid in the right hemipelvis. No mass or lymphadenopathy. No lytic or blastic lesions in the osseous structures. IMPRESSION: 1. Enlarging diverticular abscess. 2. Possible inflammatory changes involving the appendix. Correlate clinically. Results of the study were discussed with Dr. Quinn 12/06/2018 at 2:21 p.m. CRISTOBAL TEE
[2018-12-06] MEDS ORDERED: MEROPENEM 1 GM/50 ML 1 GM in Premix Bag 1 BAG IVPB SCH (15:15)
[2018-12-06] MEDS ORDERED: Morphine 4 MG/ML VIAL SLOW IVP PRN (15:33)
[2018-12-06] MEDS ORDERED: Dextrose 5% in Water 1,000 ML IV PRN (15:33)
[2018-12-06] MEDS ORDERED: Dextrose 50% Abboject 50 ML SYRINGE SLOW IVP PRN (15:33)
[2018-12-06] MEDS ORDERED: Acetaminophen 500 MG TAB PO PRN (15:35)
[2018-12-06] MEDS ORDERED: Ketorolac Tromethamine 30 MG/ML VIAL IVP PRN (15:36)
--- NOTE | 2018-12-06 16:27 | HP ---
HISTORY OF PRESENT ILLNESS: Ms. Rollins is a 58-year-old woman, who was previously admitted on 10/30/2018, for acute abdominal pain. Acute diverticulitis was diagnosed, for which the patient was started on IV ciprofloxacin and metronidazole. On subsequent CT scan of the abdomen pelvis, the patient had developed diverticular abscess despite being on IV antibiotics. The abscess was deemed not amenable to percutaneous drainage due to surrounding bowel. Intravenous antibiotic was changed, and nonoperative management was continued. Due to persistent abdominal pain, the patient was seen by General Surgery, and underwent laparoscopic abscess drainage and abdominal washout on 11/09/2018. The patient was subsequently discharged home with no abdominal pain. All antibiotics were continued. The patient was seen in followup with a repeat CT scan of the abdomen and pelvis, which reveals a residual small diverticular abscess. Antibiotics were extended, and the patient continued to do well up until 2 days ago when she developed a sudden onset of lower abdominal sharp pain, associated with multiple episodes of nausea and nonbilious emesis. The patient denies any fevers or chills. Her symptoms are continued up until today. The patient was advised to return to the emergency department. At the time of my evaluation in the emergency department, she is awake and alert. She reports 6/10 abdominal pain with provocation. The last meal was yesterday. She passes flatus and had normal bowel movements up until yesterday. The patient denies any hematochezia or melena. She denies any hematemesis. PAST MEDICAL HISTORY: Significant for recently diagnosed acute diverticulitis. PAST SURGICAL HISTORY: Pertinent for laparoscopic abdominal washout and drainage of pelvic abscess on 11/09/2018. SOCIAL HISTORY: The patient is , lives at home with her . She smokes half pack of cigarettes per day, and ultimately has about a [id number] cigarette smoking history. She denies any ethanol or illicit drug abuse. FAMILY HISTORY: Notable for her mother with essential hypertension and diabetes mellitus. Father with essential hypertension and cigarette smoking related COPD. She has a maternal grandmother with heart disease. She denies any family history of cancer or inflammatory bowel disease. PRE-HOSPITAL MEDICATIONS: Include Augmentin 875 mg p.o. b.i.d. ALLERGIES: THE PATIENT DENIES ANY KNOWN DRUG ALLERGIES. REVIEW OF SYSTEMS: Ten-point review of systems is essentially unremarkable except as stated in past medical history and chief complaint. PHYSICAL EXAMINATION: GENERAL: This reveals a 58-year-old normally developed woman, who is otherwise coherent and interactive and appears stated age. The patient is alert and oriented x3. She appears to be in no acute distress at the time of my evaluation. VITAL SIGNS: Today include blood pressure 118/81, pulse 88, respiratory rate is 16, temperature 97.3 degrees Fahrenheit, oxygen saturation 96% on room air. HEENT: Reveals normocephalic and atraumatic. Pupils are equal, round, reactive to light and accommodation. She has no jugular venous distention noted. HEART: Reveals regular rate and rhythm. No murmurs or gallops auscultated. LUNGS: Clear to auscultation bilaterally. Her breathing, regular and nonlabored. ABDOMEN: Soft with lower abdominal tenderness to palpation, left greater than right. She has mild rebound tenderness present. Liver and spleen remain nonpalpable below costal margins. EXTREMITIES: Reveal 2+ radial and pedal pulses bilaterally. No ankle edema is present. NEUROLOGIC: Reveals no focal deficits present. LABORATORY FINDINGS: Today include a CBC with 11,600 of white blood cells, hemoglobin and hematocrit 15.4 and 48.6 respectively. Platelet count is 398,000. Metabolic profile; sodium 135, potassium is 3.5, chloride is 97, bicarb is 30, BUN 8, creatinine 0.73, glucose 89, total bilirubin is 0.8, AST and ALT are noted at 13 and less than 7 respectively. Serum lipase is normal at 38. DIAGNOSTIC DATA: I have personally reviewed the CT scan of the abdomen and pelvis obtained today, which reveals a larger pericolonic fluid collection with air-fluid levels measuring 2.8 x 2.2 cm. Also noted surrounding fat stranding and inflammation of the appendix. Diffuse colonic diverticula noted. IMPRESSION: 1. Probable exbkv-[id number]-bxcavxf diverticulitis with diverticular abscess. 2. Acute appendicitis. PLAN: 1. The patient will be admitted with broad-spectrum IV antibiotic therapy initiated. 2. The patient has failed conservative management including nonoperative and minimally invasive laparoscopic abdominal washout. 3. For these reasons, I recommended that we proceed with exploratory laparotomy and possible sigmoidectomy with end-colostomy and possible appendectomy if indicated. 4. The above findings and recommendations were discussed with the patient and her elderly mother at bedside. 5. I advised the patient of the risks and benefits of the proposed surgery to include, but not limited to, bleeding, infection, including intraabdominal and wound abscesses. Additionally, she is also at risk for injuries to bowel or surrounding structures. The patient indicates understanding of this information provided. Has granted consent for admission and proposed surgical intervention. Job ID: [id number]
[2018-12-06 16:31] LABS: INR-International Normal Ratio 1.1; PTT 32.4 SEC (22.9-36.1); Prothrombin Time 13.9 SEC (12.0-14.7)
[2018-12-06] MEDS: Sodium Chloride 0.9% 1,000 ML IV SCH (18:54)
[2018-12-06] MEDS: Famotidine/PF 20 mg/2ml Vial SLOW IVP SCH (21:03)
[2018-12-06] MEDS: Enoxaparin Sodium 40 MG/0.4 ML SYRINGE SC SCH (21:12)
[2018-12-06] MEDS ORDERED: Meropenem 1 GM in Sodium Chloride 0.9% 100 ML IVPB SCH (22:00)
[2018-12-06] MEDS: MEROPENEM 1 GM/50 ML 1 GM in Premix Bag 1 BAG IVPB SCH (22:34)
[2018-12-07] MEDS: MEROPENEM 1 GM/50 ML 1 GM in Premix Bag 1 BAG IVPB SCH ×3 (06:43→22:08)
[2018-12-07 07:41] LABS: #Basophils 0.1 thou/uL (0.0-0.2); #Eosinphils 0.8 thou/uL (0.0-0.7); #Lymphocytes 2.1 thou/uL (1.20-3.40); #Monocytes 0.5 thou/uL (0.11-0.59); %Basophils 0.8 % (0.0-1.0); %Eosinophils 9.5 % (0.0-10.0); %Lymphocytes 24.6 % (21.0-51.0); %Monocytes 5.9 % (0.0-10.0); %Neutrophils 59.2 % (42.0-75.0); Mean Corpuscular HGB CONC 32.1 g/dL (32.0-36.0); Mean Corpuscular Volume 93.5 fL (78.0-98.0); Mean Platelet Volume 8.1 fL (7.4-10.4); Platelet Count 340 thou/uL (130-400); RBC Distribution Width 12.7 % (11.5-14.5); Red Blood Cell (RBC) Count 4.66 mill/uL (4.20-5.40); White Blood Cell (WBC) Count 8.5 thou/uL (4.8-10.8)
[2018-12-07] MEDS ORDERED: Midazolam HCl 2 mg/2 ml Vial ONE (07:47)
[2018-12-07] MEDS ORDERED: Fentanyl 100 MCG/2 ML VIAL ONE ×2 (07:47→13:29)
[2018-12-07] MEDS ORDERED: Dexamethasone 4 mg/ml Vial ONE (07:48)
[2018-12-07 07:57] LABS: Anion Gap 12 mmol/L (10-20); BUN (Urea Nitrogen) 5 mg/dL (9.8-20.1); Calc. Creatinine Clearance 97 mL/min (70-130); Carbon Dioxide 26 mmol/L (22-29); Chloride 104 mmol/L (98-107); Estimated GFR-MDRD Greater than 90; Glucose 77 mg/dL (70-105); Phosphorus 2.9 mg/dL (2.3-4.7); Potassium 3.7 mmol/L (3.5-5.1); Sodium 138 mmol/L (136-145)
[2018-12-07] MEDS ORDERED: Phenylephrine HCL 10 MG/ML VIAL ONE (09:01)
[2018-12-07] MEDS ORDERED: PHENYLEPHRINE-NS 100 MCG/ML 10 ML SYRINGE ONE ×2 (09:01→09:45)
[2018-12-07] MEDS ORDERED: Fentanyl 250 MCG/5 ML VIAL ONE (09:01)
[2018-12-07] MEDS ORDERED: Glycopyrrolate 0.2 MG/ML 5 ML SYRINGE ONE (09:45)
[2018-12-07] MEDS ORDERED: Rocuronium Bromide 10 MG/ML (10ML VIAL) ONE (09:45)
[2018-12-07] MEDS ORDERED: Lidocaine 1% PF 5 ML VIAL ONE (09:45)
[2018-12-07] MEDS ORDERED: Dexamethasone 20 MG/5 ML VIAL ONE (09:45)
[2018-12-07] MEDS ORDERED: Ondansetron PF 4 MG/2 ML Vial ONE ×2 (09:45→10:39)
[2018-12-07] MEDS ORDERED: ePHEDrine 50 MG/ML VIAL ONE (09:45)
[2018-12-07] MEDS ORDERED: Ketorolac Tromethamine 30 MG/ML VIAL ONE (09:45)
[2018-12-07] MEDS ORDERED: PROPOFOL 200 MG/20 ML VIAL ONE (09:45)
[2018-12-07] MEDS: Sodium Chloride 0.9% 1,000 ML IV SCH ×3 (10:13→22:11)
[2018-12-07] MEDS: Famotidine/PF 20 mg/2ml Vial SLOW IVP SCH ×2 (10:13→20:40)
[2018-12-07] MEDS ORDERED: Albuterol Sulfate HFA (OR ONLY) ONE (10:39)
--- NOTE | 2018-12-07 12:08 | CON ---
DATE OF CONSULTATION: 12/07/2018 CONSULTING PHYSICIAN: Ciaran Holden MD INTRAOPERATIVE CONSULTATION: I was asked to come to the operating room by Dr. Rubio to evaluate this patient. She is a 58-year-old female, who Dr. Rubio has taken to the operating room for exploratory laparotomy with a long history of diverticular infection and abscess. He has removed an abscess from deep in the pelvis and has concern regarding her right adnexa. I scrubbed in and put on gown and gloves to review the area. The bowel was packed away and the pelvis was easily assessed. The uterus is small. The right ovary and tube were visualized. Both are indurated, but showed no evidence of abscess or malignancy. Ovary and tube on the left side appear normal. There appears to be no primary gynecologic pathology present. Moving forward with a TERESSA-BSO at this time is such that I believe the risk is much greater than the benefit. I have discussed this with Dr. Rubio and he agrees with this assessment. Job ID: [id number] MTDD
[2018-12-07] MEDS ORDERED: Promethazine HCl 25 MG/ML VIAL SLOW IVP PRN (13:18)
[2018-12-07] MEDS ORDERED: Promethazine HCl 25 MG/ML VIAL IM PRN (13:18)
[2018-12-07] MEDS ORDERED: Ondansetron HCl/PF 4 MG/2 ML Vial IVP PRN (13:18)
[2018-12-07] MEDS ORDERED: Sodium Chloride 0.9% 20 ML ONE (13:20)
[2018-12-07] MEDS ORDERED: diphenhydrAMINE 50 MG/ML VIAL IM PRN (13:30)
[2018-12-07] MEDS ORDERED: Communication Order-Pharmacy FS SCH (13:30)
[2018-12-07] MEDS ORDERED: diphenhydrAMINE 50 MG/ML VIAL IVP PRN (13:30)
[2018-12-07] MEDS ORDERED: Naloxone HCl 0.4 mg/ml Vial IV PRN (13:30)
[2018-12-07] MEDS ORDERED: diphenhydrAMINE 25 MG CAP PO PRN (13:30)
--- NOTE | 2018-12-07 14:14 | RAD ---
SINGLE KUB: Indication: Dobbhoff feeding tube placement. FINDINGS/IMPRESSION: Dobbhoff feeding tube tip is seen in the region of the jejunum. There is a surgical drain within the lower pelvis. Gastric catheter projects within the gastric fundus. There is a left lower quadrant ost barbara. No acute osseous abnormality is evident. Bowel gas pattern is unobstructed. POS: OFF
[2018-12-07] MEDS: Acetaminophen 500 MG TAB PO SCH ×3 (15:32→22:42)
[2018-12-07] MEDS: Ketorolac Tromethamine 30 MG/ML VIAL IVP SCH ×2 (15:41→20:39)
--- NOTE | 2018-12-07 15:57 | OP ---
DATE OF PROCEDURE: 12/07/2018 PREOPERATIVE DIAGNOSES: 1. Acute diverticulitis with diverticular abscess. 2. Acute appendicitis. POSTOPERATIVE DIAGNOSES: 1. Acute diverticulitis with diverticular abscess. 2. Acute appendicitis. OPERATIONS PERFORMED: 1. Exploratory laparotomy. 2. Drainage of peritoneal abscess. 3. Sigmoidectomy with end colostomy. 4. Placement of feeding nasojejunal tube. 5. Appendectomy. ANESTHESIA: General endotracheal. ESTIMATED BLOOD LOSS: 200 mL. FLUIDS GIVEN: 1700 mL of crystalloids. COUNTS: Sponge and instrument counts were verified as correct x2. COMPLICATIONS: None apparent at the time of operation. INDICATIONS FOR OPERATION: This is a 58-year-old woman, who was admitted one month ago with acute abdominal pain. Diagnosis of acute sigmoid colon diverticulitis was rendered. The patient was initiated on intravenous antibiotic therapy. While on antibiotics, the patient developed diverticular abscess. Antibiotics were changed to broad-spectrum and the patient was managed nonoperatively with failure to resolve the abscess, which was deemed not amenable to percutaneous drainage. The patient subsequently underwent laparoscopic peritoneal abscess drainage and abdominal washout. She was subsequently discharged home once the symptoms resolved. She returned to the surgery clinic on followup noted with recurrent 1 cm pelvic abscess, which was again managed with antibiotic therapy. The patient was seen in emergency department yesterday with worsening abdominal pain associated with nausea and vomiting. CT scan of the abdomen and pelvis revealed recurrent and larger peritoneal abscess with acute diverticulitis as well as acute distal appendicitis. The patient was brought to the operating room today for exploration. Findings are consistent with acute sigmoid colon diverticulitis, diverticular abscess, acute appendicitis without any perforation involving the distal two- thirds of the appendix and 4 x 4 cm phlegmon involving the distal sigmoid colon, the uterus, and the right adnexa resulting in relative enlargement of the right adnexa. DESCRIPTION OF OPERATION: Informed consent was obtained, and the patient was brought to the operating room, placed in supine position. Following general anesthesia, Hogan catheter was inserted and placed to bedside drain. Abdomen was sterilely prepped and draped in usual fashion. A midline incision was made using #10 scalpel. Incision was carried through subcutaneous tissues maintaining hemostasis using cautery. Fascia was incised at midline exposing the peritoneum beneath, which was grasped x2 with hemostats. Peritoneal cavity was sharply entered using Metzenbaum scissors. Incision was extended superiorly and inferiorly. Bookwalter retractor was put in place to gain exposure. Small bowel was run from the ligament of Treitz down to terminal ileum. No pathology identified here. Previous nasogastric tube was palpated within the gastric lumen. The cecum was palpated free of any abnormalities. The appendix itself was traced into the pelvis with the distal two-thirds welded in a phlegmon consisting of the posterior aspect of the uterus and sigmoid colon. This was meticulously and bluntly dissected off the surrounding tissues and rent was created at the base of the mesoappendix through which the mesoappendix was divided between clamps. The appendix itself was divided at the appendiceal-cecal junction between clamps. The appendix was passed off the operative field for pathology. The appendiceal stump was ligated with a stick tie of 2-0 Vicryl, imbricated with a pursestring suture of 3-0 silk. We then decided to proceed with sigmoidectomy. The left colon was mobilized along the white line of Toldt from the mid descending colon down towards the pelvis. The sigmoid colon was mobilized medially, we did not enter the retroperitoneal cavity. The distal sigmoid colon was welded to the uterus and the right adnexa and this was tediously dissected. Entry into pocket of much old pus cultures was taken. The abscess cavity was then irrigated clear with saline after the excess pus was evacuated with suction. The sigmoid colon was then bluntly and sharply dissected down into the rectosigmoid junction. The mesoappendix was divided here using LigaSure. Distal part of the sigmoid colon was then divided at the rectosigmoid junction using a contour stapler. I then created a rent proximal to our specimen at the junction of the descending colon and sigmoid colon. Re-loaded contour stapler was used to divide the bowel here. The mesentery of the specimen was then serially divided using LigaSure with good hemostasis. The sigmoid colon specimen was passed off the operative field followed by transmission to Pathology. A stick tie was placed at the proximal end of the sigmoid colon specimen. The abdominal cavity was then copiously irrigated clear with saline solution. I then palpated the rest of the colon from the cecum through the ascending, transverse, descending colon. No other pathology was evident. At this juncture, feeding nasojejunal tube was inserted by Anesthesia, the tip of which was palpated by myself within the gastric lumen. I manipulated tip of this catheter into proximal small bowel without resistance. I then created a core incision in the left lower quadrant in the area chosen for the colostomy. This was achieved using a 10 scalpel. Incision was carried down to the level of the fascia. I introduced a tonsil clamp through this, advancing this into the peritoneal cavity and the cord defect was dilated to 2 fingerbreadths. A Nilsa forceps was introduced through this grasping the staple line of the descending colon, which was pulled through and secured within the abdominal cavity using stay sutures of 3-0 silk at three points. Finding no other pathology, exploration was terminated at this juncture. All sponges and instruments were reported as correct x2. The abdominal cavity was irrigated clear with saline solution, noting good hemostasis in place. A #19 Shawn drain was introduced into the pelvis and allowing this to exit the abdominal cavity through a separate stab incision, securing the drain at the anterior abdominal wall using 2-0 silk suture. A sheet of Seprafilm was placed in the deep pelvis, and small bowel was returned to normal anatomic location. A second sheet of Seprafilm was placed over the remainder of the small bowel, and omentum was drawn over the entire viscera. Fascia was approximated in the midline using a running stitch of #1 single stranded PDS. Subcutaneous tissues were then pulse lavaged with 3 L of sterile saline. Good hemostasis was noted in place. At this juncture, I changed my gloves to proceed with skin closure. Deep tissues were approximated using interrupted sutures of 2-0 Vicryl. Skin incision was closed in the midline using a running stitch of 3-0 Monocryl suture in subcuticular fashion. Dermabond was applied over incisional closure. I then turned my attention to the colostomy site. The staple line was excised using Paez scissors. A functional Linnette colostomy was protected using interrupted sutures of 3-0 Vicryl. Ostomy appliance was put in place. The patient tolerated the operation without any apparent complication and was returned to recovery room in satisfactory condition. Job ID: [id number] [facility]
[2018-12-07] MEDS: Enoxaparin Sodium 40 MG/0.4 ML SYRINGE SC SCH (20:39)
[2018-12-08] MEDS: Ketorolac Tromethamine 30 MG/ML VIAL IVP SCH ×4 (02:28→17:56)
[2018-12-08 05:42] LABS: Band 5 % (5-11); Hemoglobin 11.5 g/dL (12.0-16.0); Lymphocytes 17 % (21-51); MDiff Complete? YES; Mean Corpuscular HGB CONC 32.3 g/dL (32.0-36.0); Mean Corpuscular Hemoglobin 30.3 pg (27.0-31.0); Mean Corpuscular Volume 93.9 fL (78.0-98.0); Mean Platelet Volume 8.1 fL (7.4-10.4); Monocytes 4 % (0-10); Neutrophil 74 % (42-75); Platelet Count 331 thou/uL (130-400); RBC Distribution Width 12.6 % (11.5-14.5); White Blood Cell (WBC) Count 12.5 thou/uL (4.8-10.8)
[2018-12-08 05:45] LABS: Anion Gap 11 mmol/L (10-20); BUN (Urea Nitrogen) 8 mg/dL (9.8-20.1); Calc. Creatinine Clearance 99 mL/min (70-130); Calcium 8.2 mg/dL (7.8-10.44); Carbon Dioxide 22 mmol/L (22-29); Chloride 106 mmol/L (98-107); Estimated GFR-MDRD Greater than 90; Glucose 101 mg/dL (70-105); Magnesium 1.6 mg/dL (1.6-2.6); Potassium 4.5 mmol/L (3.5-5.1); Sodium 134 mmol/L (136-145)
[2018-12-08] MEDS: MEROPENEM 1 GM/50 ML 1 GM in Premix Bag 1 BAG IVPB SCH ×3 (06:07→21:06)
[2018-12-08] MEDS ORDERED: Magnesium 2 GM/50 ML 4 GM in Premix Bag 1 BAG IVPB SCH (07:00)
[2018-12-08] MEDS ORDERED: Magnesium Sulfate 4 GM in Sodium Chloride 0.9% 250 ML 250 ML IVPB SCH (07:00)
[2018-12-08] MEDS: Famotidine/PF 20 mg/2ml Vial SLOW IVP SCH ×2 (08:00→21:06)
[2018-12-08] MEDS: Acetaminophen 500 MG TAB PO SCH ×3 (08:00→17:54)
[2018-12-08 11:28] VITALS: BMI 18.4
[2018-12-08] MEDS: Sodium Chloride 0.9% 1,000 ML IV SCH ×2 (13:05→18:57)
--- NOTE | 2018-12-08 13:33 | PQF ---
RENZO SERNAREJI [id number] [address] [place] [address] [id number] CLINICAL DOCUMENTATION IMPROVEMENT CLARIFICATION FORM: ICD-10 Updated PLEASE DO AN ADDENDUM TO THE PROGRESS NOTE WITH ANY DOCUMENTATION UPDATES OR ADDITIONS AND CARRY THROUGH TO DC SUMMARY. THANK YOU. Date: 12/08/2018 ATTN: DR. MUSA Please exercise your independent, professional judgment in responding to the clarification form. Clinical indicators are provided on the bottom of this form for your review Please check appropriate box(s): [ x ] Protein Calorie Malnutrition: [ ] Mild [ x ] Moderate [ ] Severe [ ] Other Malnutrition (please specify) __ [ ] Underweight without malnutrition [ ] Cachexia [ ] Other diagnosis [ ] Unable to determine In addition, please specify: Present on Admission (POA): [ x ] Yes [ ] No [ ] Unable to determine CLINICAL INDICATORS - SIGNS / SYMPTOMS / LABS: 12/06-ER: Feels that she is losing weight d/t inability to keep food down. 12/08-Nutrition Asmt: BMI of 18.4 based on Ht of 5'8" and Wt of 121.8-lbs Two or More of the Followin. Unintentional Insufficient Energy Intake 12/08-Nutrition: TF meets 18% of KCAl needs; not met. TF meets 20% of G Protein needs; not met. 2. Weight Loss 12/08-Nutrition: -4.7% wt loss over the past 1 month per EMR documentation. RISK FACTORS: 12/06-ER: Change in appetite / nausea / vomiting 12/08-Nutrition: Inability to consume adequate caloric intake 12/06-ER: History of Diverticulitis with abscess formation TREATMENT: Dietary consult Nutritional supplements Tube feedings Moderate Malnutrition (in acute illness) Energy Intake: <75% of estimated energy requirement for > 7 days Weight Loss: 1-2%/1 week; 5%/ 1 month; 7.5%/3 months Other: mild body fat loss; mild muscle mass loss; mild fluid accumulation; Severe Malnutrition (in acute illness) Energy Intake: < 50% of estimated energy requirement for > 5 days Weight Loss: >1-2%/1 week; >5%/1 month; >7.5%/3 months Other: moderate body fat loss; moderate muscle mass loss; moderate- severe fluid accumulation; measurably reduced information systems technician strength Moderate Malnutrition (in chronic illness) Energy Intake: <75% of estimated energy requirement for >1 month Weight Loss: 5%/1 month; 7.5%/3 months; 10%/6 months; 20%/1 year Other: mild body fat loss; mild muscle mass loss; mild fluid accumulation Severe Malnutrition (in chronic illness) Energy Intake: <75% of estimated energy requirement for >1 month Weight Loss: >5%/1 month; >7.5%/3 months; >10%/6 months; >20%/1 year Other: severe body fat loss; severe muscle mass loss; severe fluid accumulation ; measurably reduced information systems technician strength Thank you, pOal (This form is maintained as a part of the permanent medical record) 2015 [employer]. All Rights Reserved Opal William RN, CDIS [email or web address] [phone] [email or web address]
--- NOTE | 2018-12-08 14:40 | PRG ---
DATE OF SERVICE: 12/08/2018 SUBJECTIVE: The patient was seen this morning lying in bed, reported abdominal pain, and is currently n.p.o. Reported sleeping overnight, but was still having abdominal pain and was very tender to palpation. Nursing reported bleeding from around stoma site. Wound Care at bedside was able to take down the ostomy bag and wound was evaluated by Dr. Rubio and myself. The patient denies nausea, vomiting or diarrhea. OBJECTIVE: VITAL SIGNS: Temperature 98.5, pulse 72, respirations 14, oxygen saturation 92% on room air, and blood pressure 89/73. GENERAL: Mildly distressed elderly female, sitting up in bed. PULMONARY: Equal chest rise and fall. Clear breath sounds bilaterally. No significant respiratory distress. CARDIAC: Regular rate and rhythm. No murmurs, gallops or rubs. GI: Abdomen is soft, mildly tender to palpation, and nondistended. Colostomy to left lower quadrant with dry blood around a perimeter. No active bleeding noted. Stoma is healthy appearing and well perfusing. No output in bag. There is an abdominal ETHAN drain with serosanguineous output. The patient also has an NG tube and an NJ tube in place as well. EXTREMITIES: 2+ pulses in all extremities. No significant swelling noted. Gross motor and sensation intact in all extremities. LABORATORY FINDINGS: White count 12.5, hemoglobin 11.5, hematocrit 37.6, and platelets 331. Sodium 134, potassium 4.5, chloride 106, carbon dioxide 22, BUN 8, creatinine 0.58, glucose 101, phos 3.0, and magnesium 1.6. DIAGNOSTIC FINDINGS: There are no new diagnostic findings to report. ASSESSMENT: 1. Acute on chronic diverticulitis with intraabdominal abscess. 2. Acute appendicitis. 3. History of diverticulitis and abscess. PLAN: We will advance the patient's diet to a clear liquid diet. Continue normal saline at 120 an hour. Discontinue Hogan and NG tube. We will continue NJ tube with trickle feeds. Continue ETHAN drain for now. We will replace magnesium and phosphorus today. The patient continues to void. Encourage ambulating as much as possible. Continue to wait for return of bowel function. Wound care to see the patient daily for ostomy care and education. The patient was seen and examined by Dr. Rubio and myself this morning during rounds. Job ID: [id number]
[2018-12-08] MEDS: Promethazine HCl 25 MG/ML VIAL IM PRN (15:08)
[2018-12-08] MEDS: HYDROmorphone 10 mg/100 ml CADD IVPB PRN (19:11)
[2018-12-08] MEDS: Enoxaparin Sodium 40 MG/0.4 ML SYRINGE SC SCH (21:06)
[2018-12-09] MEDS: Acetaminophen 500 MG TAB PO SCH ×5 (00:15→23:14)
[2018-12-09] MEDS: Ketorolac Tromethamine 30 MG/ML VIAL IVP SCH ×4 (00:26→17:56)
[2018-12-09] MEDS: Sodium Chloride 0.9% 1,000 ML IV SCH ×4 (02:34→21:07)
[2018-12-09] MEDS: MEROPENEM 1 GM/50 ML 1 GM in Premix Bag 1 BAG IVPB SCH ×3 (05:18→21:00)
[2018-12-09 05:34] LABS: Anion Gap 8 mmol/L (10-20); BUN (Urea Nitrogen) 7 mg/dL (9.8-20.1); Calc. Creatinine Clearance 103 mL/min (70-130); Calcium 7.8 mg/dL (7.8-10.44); Carbon Dioxide 28 mmol/L (22-29); Chloride 107 mmol/L (98-107); Estimated GFR-MDRD Greater than 90; Glucose 86 mg/dL (70-105); Magnesium 2.3 mg/dL (1.6-2.6); Phosphorus 2.2 mg/dL (2.3-4.7); Sodium 139 mmol/L (136-145)
[2018-12-09 06:00] LABS: Band 5 % (5-11); Eosinophils 5 % (0-10); Hemoglobin 10.3 g/dL (12.0-16.0); Lymphocytes 34 % (21-51); MDiff Complete? YES; Mean Corpuscular HGB CONC 32.2 g/dL (32.0-36.0); Mean Corpuscular Hemoglobin 30.3 pg (27.0-31.0); Mean Platelet Volume 8.3 fL (7.4-10.4); Monocytes 5 % (0-10); Neutrophil 51 % (42-75); Platelet Count 314 thou/uL (130-400); RBC Distribution Width 12.8 % (11.5-14.5); Red Blood Cell (RBC) Count 3.41 mill/uL (4.20-5.40); White Blood Cell (WBC) Count 9.5 thou/uL (4.8-10.8)
[2018-12-09] MEDS: Famotidine/PF 20 mg/2ml Vial SLOW IVP SCH ×2 (10:01→21:00)
--- NOTE | 2018-12-09 13:25 | PRG ---
DATE OF SERVICE: 12/09/2018 SUBJECTIVE: This is a 58-year-old female, postop day #3, exploratory laparotomy, drainage of peritoneal abscess, sigmoidectomy with end colostomy, placement of feeding nasojejunal tube, appendectomy. The patient also had abscess drain and abdominal washout on 11/09/2018. The patient is currently sitting up on the side of the bed. Denies any abdominal pain at this time. The patient does report occasional hiccups that cause her to have some pain. She reports sleeping well last night and continues to tolerate a clear liquid diet. OBJECTIVE: VITAL SIGNS: Temperature 98.1, pulse 73, respirations 18, SpO2 of 96% on room air, blood pressure 118/77. GENERAL: The patient is awake, alert, sitting up on the side of the bed, no obvious distress. PULMONARY: Equal chest rise and fall. No respiratory distress. Respirations even and unlabored. CARDIOVASCULAR: Regular rate and rhythm. No pedal edema. GI: Abdomen is soft, mildly tender to palpation, nondistended. Colostomy to the left lower quadrant. No gas noted. Brown mucus-like output noted, small amount. Stoma is healthy-appearing and well perfusing. Abdominal ETHAN drain with serosanguineous output. NJ tube in place with trickle feeds. Midline incision well approximated with no drainage, redness, or oozing. EXTREMITIES: Moves all extremities. LABORATORY DATA: WBC 9.5, RBC 3.41, hemoglobin 10.3, hematocrit 32.0. Sodium 139, potassium 4.0, chloride 107, CO2 of 28, BUN 7, creatinine 0.53, calcium 7.8, phosphorus 2.2, and magnesium 2.3. DIAGNOSTICS: There are no diagnostics to evaluate today. ASSESSMENT: Acute on chronic diverticulitis with intra-abdominal abscess. Acute appendicitis. Postoperative day #2. Exploratory laparotomy with drainage of peritoneal abscess, sigmoidectomy with end colostomy and placement of feeding nasojejunal tube. Appendectomy. PLAN: We will continue the patient's clear liquid diet. We will continue the patient's NJ tube with trickle feeds. We will continue ETHAN drain for now. We will replace the patient's phosphorus today. We will continue to encourage ambulation as much as possible. We will continue to await bowel function return. The patient is still pending wound care for ostomy care and education. The plan was discussed with Dr. Rubio who agrees. Job ID: [id number]
[2018-12-09] MEDS ORDERED: ISOVUE-370 76%-LOCM 1 ML ONE (13:54)
[2018-12-09] MEDS: Enoxaparin Sodium 40 MG/0.4 ML SYRINGE SC SCH (21:00)
[2018-12-10] MEDS: Ketorolac Tromethamine 30 MG/ML VIAL IVP SCH ×4 (00:11→17:38)
[2018-12-10] MEDS: Sodium Chloride 0.9% 1,000 ML IV SCH ×3 (01:11→17:13)
[2018-12-10] MEDS: Acetaminophen 500 MG TAB PO SCH ×3 (01:12→17:38)
[2018-12-10] MEDS: MEROPENEM 1 GM/50 ML 1 GM in Premix Bag 1 BAG IVPB SCH ×3 (05:15→21:35)
[2018-12-10] MEDS: Famotidine/PF 20 mg/2ml Vial SLOW IVP SCH ×2 (08:22→21:37)
[2018-12-10] MEDS: HYDROmorphone 10 mg/100 ml CADD IVPB PRN (10:25)
--- NOTE | 2018-12-10 16:29 | PRG ---
DATE OF SERVICE: 12/10/2018 SUBJECTIVE: This is a 58-year-old female, status post stay #4, exploratory laparotomy, drainage of peritoneal abscess, sigmoidectomy with end-colostomy, and placement of feeding nasojejunal tube and appendectomy. The patient is currently up with physical therapy. The patient remains on a DAIRY TECHNICIAN pump. The patient reports minimal appetite. Continues to tolerate a clear liquid diet. The patient is tearful with exam. The patient voices no concerns at this time. The patient had no overnight events. It was reported the patient had diarrhea-like stool per rectum yesterday. OBJECTIVE: VITAL SIGNS: Blood pressure 128/77, temperature 98.5, pulse 73, respirations 16, SpO2 of 93% on room air. GENERAL: Awake, alert, moderate distress after walking with physical therapy. The patient reports she gets tired easily. PULMONARY: Equal chest rise and fall. No respiratory distress. Breath sounds, equal bilaterally. CARDIOVASCULAR: Regular rate and rhythm. No pedal edema. ABDOMEN: Tender to palpation, colostomy to the left lower quadrant. No gas noted in colostomy, brown mucus-like output noted, ostomy is healthy appearing and well perfusing. Abdominal ETHAN drain with serosanguinous output. Midline incision is well approximated with no drainage, redness, or signs of infection. NJ tube in place with trickle feeds. EXTREMITIES: Moves all extremities. NEUROLOGIC: No focal deficits. LABORATORY DATA: There are no labs to evaluate today. IMPRESSION: Equcn-[id number]-cfqmord diverticulitis with intra-abdominal abscess. Postop day #3, exploratory laparotomy with drainage of peritoneal abscess, sigmoidectomy with end-colostomy and appendectomy. PLAN: We will continue a clear liquid diet. We will continue trickle feeds via NJ tube. Continue ETHAN drain. We will place the patient on a walking program per physical therapy recommendations. The patient reports that she did watch the ostomy video, but has not had a direct education with her ostomy care from Wound Care. We will continue patient's DAIRY TECHNICIAN pump at this time for pain control. Continue to await return of bowel function. Plan has been discussed with Dr. Rubio. Job ID: [id number]
[2018-12-10] MEDS: Enoxaparin Sodium 40 MG/0.4 ML SYRINGE SC SCH (21:36)
[2018-12-11] MEDS: Ketorolac Tromethamine 30 MG/ML VIAL IVP SCH ×3 (00:31→12:22)
[2018-12-11] MEDS: Acetaminophen 500 MG TAB PO SCH ×4 (00:31→18:47)
[2018-12-11] MEDS: Sodium Chloride 0.9% 1,000 ML IV SCH (00:38)
[2018-12-11] MEDS: Ondansetron PF 4 MG/2 ML Vial IVP PRN (04:55)
[2018-12-11 05:55] LABS: Anion Gap 11 mmol/L (10-20); BUN (Urea Nitrogen) Less than 4 mg/dL (9.8-20.1); Calc. Creatinine Clearance 103 mL/min (70-130); Calcium 8.6 mg/dL (7.8-10.44); Carbon Dioxide 26 mmol/L (22-29); Chloride 104 mmol/L (98-107); Estimated GFR-MDRD Greater than 90; Glucose 81 mg/dL (70-105); Magnesium 1.9 mg/dL (1.6-2.6); Potassium 4.1 mmol/L (3.5-5.1); Sodium 137 mmol/L (136-145)
[2018-12-11] MEDS: Promethazine HCl 25 MG/ML VIAL IM PRN (05:56)
[2018-12-11] MEDS: MEROPENEM 1 GM/50 ML 1 GM in Premix Bag 1 BAG IVPB SCH ×2 (06:07→15:51)
[2018-12-11] MEDS: Famotidine/PF 20 mg/2ml Vial SLOW IVP SCH (08:02)
[2018-12-11 12:26] LABS: #Eosinphils 0.8 thou/uL (0.0-0.7); #Lymphocytes 2.2 thou/uL (1.20-3.40); #Monocytes 0.6 thou/uL (0.11-0.59); #Neutrophils 12.1 thou/uL (1.40-6.50); %Eosinophils 4.9 % (0.0-10.0); %Lymphocytes 13.8 % (21.0-51.0); %Neutrophils 77.3 % (42.0-75.0); Hemoglobin 11.2 g/dL (12.0-16.0); Mean Corpuscular HGB CONC 32.4 g/dL (32.0-36.0); Mean Corpuscular Hemoglobin 29.8 pg (27.0-31.0); Mean Corpuscular Volume 92.1 fL (78.0-98.0); Mean Platelet Volume 7.6 fL (7.4-10.4); Platelet Count 348 thou/uL (130-400); RBC Distribution Width 12.5 % (11.5-14.5); Red Blood Cell (RBC) Count 3.75 mill/uL (4.20-5.40); White Blood Cell (WBC) Count 15.6 thou/uL (4.8-10.8)
[2018-12-11] MEDS ORDERED: traMADol HCl 50 MG TAB PO SCH (15:00)
[2018-12-11] MEDS ORDERED: Senokot 8.6 MG TAB PO PRN (17:43)
--- NOTE | 2018-12-11 17:56 | PRG ---
DATE OF SERVICE: 12/11/2018 SUBJECTIVE: Ms. Rollins is a 58-year-old woman, who is postoperative day #4 status post Donn procedure. She reports residual incisional abdominal pain. She is tolerating clear liquid diet. There has not been any stool through the colostomy. The patient otherwise ambulates with minimal difficulty. OBJECTIVE: VITAL SIGNS: Today include blood pressure 104/68, pulse is 65, respiratory rate is 14, temperature 98.8 degrees Fahrenheit, and oxygen saturation 93% on room air. HEART: Reveals regular rate and rhythm. No murmurs or gallops auscultated. LUNGS: Clear to auscultation bilaterally. Breathing, regular and nonlabored. ABDOMEN: Soft and nondistended. Incision is intact, clean, and dry. Colostomy is viable. No stool or gas in the pouch. Brain-Ness drain returns serous fluid. IMPRESSION: Postoperative day #4 status post Donn procedure. PLAN: 1. Discontinue IV antibiotics and initiate oral antibiotics at this time. 2. We will advance diet to full liquids. 3. Convert pain management to p.o. intake and discontinue BALLISTICS TEACHER. 4. Above findings and plan discussed with the patient, who indicates understanding of information given. 5. I have answered her questions. 6. Anticipate discharge in next 24 to 48 hours. Job ID: [id number]
[2018-12-11] MEDS: traMADol HCl 50 MG TAB PO PRN (18:48)
[2018-12-11] MEDS: Enoxaparin Sodium 40 MG/0.4 ML SYRINGE SC SCH (20:15)
[2018-12-11] MEDS: Ibuprofen 800 MG TAB PO PRN (20:15)
[2018-12-11] MEDS: Amoxicillin/Potassium Clav 875 MG TAB PO SCH (20:15)
[2018-12-12] MEDS: Acetaminophen 500 MG TAB PO SCH ×5 (00:58→23:23)
[2018-12-12] MEDS: Ibuprofen 800 MG TAB PO PRN ×2 (06:50→16:00)
[2018-12-12 07:47] LABS: #Eosinphils 1.4 thou/uL (0.0-0.7); #Lymphocytes 1.9 thou/uL (1.20-3.40); #Monocytes 0.6 thou/uL (0.11-0.59); #Neutrophils 6.7 thou/uL (1.40-6.50); %Basophils 0.5 % (0.0-1.0); %Eosinophils 13.1 % (0.0-10.0); %Lymphocytes 17.8 % (21.0-51.0); %Monocytes 5.3 % (0.0-10.0); %Neutrophils 63.3 % (42.0-75.0); Hemoglobin 12.5 g/dL (12.0-16.0); Mean Corpuscular HGB CONC 32.8 g/dL (32.0-36.0); Mean Corpuscular Hemoglobin 29.6 pg (27.0-31.0); Mean Corpuscular Volume 90.4 fL (78.0-98.0); Mean Platelet Volume 7.8 fL (7.4-10.4); Platelet Count 429 thou/uL (130-400); RBC Distribution Width 12.8 % (11.5-14.5); Red Blood Cell (RBC) Count 4.24 mill/uL (4.20-5.40); White Blood Cell (WBC) Count 10.6 thou/uL (4.8-10.8)
[2018-12-12 08:03] LABS: Anion Gap 10 mmol/L (10-20); BUN (Urea Nitrogen) 4 mg/dL (9.8-20.1); Calc. Creatinine Clearance 103 mL/min (70-130); Calcium 8.8 mg/dL (7.8-10.44); Carbon Dioxide 29 mmol/L (22-29); Chloride 103 mmol/L (98-107); Estimated GFR-MDRD Greater than 90; Glucose 108 mg/dL (70-105); Magnesium 1.8 mg/dL (1.6-2.6); Phosphorus 3.3 mg/dL (2.3-4.7); Potassium 4.1 mmol/L (3.5-5.1); Sodium 138 mmol/L (136-145)
[2018-12-12] MEDS: Amoxicillin/Potassium Clav 875 MG TAB PO SCH ×2 (09:01→20:38)
[2018-12-12] MEDS: Polyethylene Glycol 3350 17 GM Packet PO SCH (09:01)
[2018-12-12] MEDS ORDERED: Magnesium 2 GM/50 ML 2 GM in Premix Bag 1 BAG IVPB SCH (13:00)
[2018-12-12] MEDS ORDERED: Potassium Phosphate 15 MMOL in Sodium Chloride 0.9% 250 ML 250 ML IVPB SCH (13:00)
[2018-12-12] MEDS: traMADol HCl 50 MG TAB PO PRN (16:00)
[2018-12-12] MEDS: Ondansetron PF 4 MG/2 ML Vial IVP PRN (19:00)
[2018-12-12] MEDS: Enoxaparin Sodium 40 MG/0.4 ML SYRINGE SC SCH (20:38)
[2018-12-12] MEDS: Promethazine HCl 25 MG/ML VIAL IM PRN (23:17)
[2018-12-13] MEDS: Ondansetron PF 4 MG/2 ML Vial IVP PRN ×4 (01:30→18:12)
[2018-12-13] MEDS: Promethazine HCl 25 MG/ML VIAL IM PRN (02:51)
[2018-12-13] MEDS ORDERED: Sodium Chloride 0.9% 1,000 ML IV SCH (03:30)
[2018-12-13] MEDS: Metoclopramide HCl 10 MG/2 ML VIAL IVP PRN ×4 (04:00→21:04)
[2018-12-13 06:37] LABS: Anion Gap 12 mmol/L (10-20); BUN (Urea Nitrogen) 6 mg/dL (9.8-20.1); Calc. Creatinine Clearance 85 mL/min (70-130); Calcium 8.8 mg/dL (7.8-10.44); Carbon Dioxide 26 mmol/L (22-29); Chloride 103 mmol/L (98-107); Estimated GFR-MDRD Greater than 90; Glucose 103 mg/dL (70-105); Magnesium 2.1 mg/dL (1.6-2.6); Potassium 4.8 mmol/L (3.5-5.1); Sodium 136 mmol/L (136-145)
[2018-12-13] MEDS: Acetaminophen 500 MG TAB PO SCH ×4 (06:37→23:27)
--- NOTE | 2018-12-13 07:28 | PRG ---
DATE OF SERVICE: 12/12/2018 SUBJECTIVE: The patient was seen this morning, sitting up at edge of bed. Reported she slept well overnight except for the interruptions by the nurses. Reports tolerating a full liquid diet. Pain is well controlled. Ambulating without assistance. Stool coming from her ostomy. Midline abdominal incision is clean, dry, and intact. Tolerating a full liquid diet. Denies nausea, vomiting, or diarrhea. OBJECTIVE: VITAL SIGNS: Temperature 98 degrees, pulse 66, respirations 16, oxygen saturations 93% on room air, blood pressure 123/75. GENERAL: Well-appearing elderly female, sitting up at edge of bed with no signs of acute distress. PULMONARY: Equal chest rise and fall. Clear breath sounds bilaterally. No signs of acute pulmonary distress. CARDIAC: Regular rate and rhythm. No murmurs, gallops, or rubs. GI: Abdomen is soft, mildly tender to palpation. Midline incision with sandeep in place, it is clean, dry, and intact. Ostomy with brown stool in bag. Ostomy well perfused, nonpainful, no active bleeding noted. EXTREMITIES: No significant swelling noted. Gross motor and sensation intact in all extremities. 2+ pulses in all extremities. LABORATORY FINDINGS: White count 10.6, hemoglobin 12.5, hematocrit 38.3, and platelets 429. Sodium 138, potassium 4.1, chloride 103, carbon dioxide 29, BUN 4, creatinine 0.53, glucose 108, phosphorus 3.3, magnesium 1.8. DIAGNOSTIC FINDINGS: There are no new diagnostic findings to report. ASSESSMENT: 1. Acute on chronic diverticulitis with abdominal wall abscess, status post washout and sigmoidectomy with end colostomy. 2. Appendicitis, status post appendectomy. 3. History of diverticulitis and abdominal wall abscess. PLAN: We will advance the patient's diet to regular diet and continue the Ensure. We will discontinue the NG tube. Continue walking a lot. Continue current pain regimen. Continue p.o. Augmentin. Replace magnesium and phosphorus today. We will start to work for the patient to be placed in rehab as she is deconditioned, weak, and malnourished, and would benefit with a short stay in rehab for additional therapy. The patient was seen and examined by myself and Dr. Rubio today. Job ID: [id number]
[2018-12-13] MEDS: Polyethylene Glycol 3350 17 GM Packet PO SCH (11:10)
[2018-12-13] MEDS: Amoxicillin/Potassium Clav 875 MG TAB PO SCH ×2 (11:10→21:04)
[2018-12-13] MEDS ORDERED: Scopolamine 1.5 mg/72 hour Patch TD SCH (12:00)
--- NOTE | 2018-12-13 12:02 | PRG ---
DATE OF SERVICE: 12/13/2018 SUBJECTIVE: Ms. Rollins is a 58-year-old woman, who is postoperative day #6 status post exploratory laparotomy, sigmoidectomy with end colostomy. The patient is awake and alert today. Nursing reports the patient with recurrent nausea and 2 bouts of small volume nonbilious emesis overnight. Pain is otherwise adequately controlled with oral analgesics. The patient denies any fevers or chills. OBJECTIVE: VITAL SIGNS: This morning includes blood pressure is 127/85, pulse is 84, respiratory rate is 18, temperature is 98.9 degrees Fahrenheit, oxygen saturation is 96% on room air. HEART: Reveals regular rate and rhythm. No murmurs or gallops auscultated. LUNGS: Clear to auscultation bilaterally. Her breathing regular, nonlabored. ABDOMEN: Soft with moderate incisional tenderness to palpation with no gross rebound tenderness present. She has no abdominal distention present. Colostomy is viable and functional with large volume semiformed francisca colored stool and gas. NEUROLOGIC: Reveals no focal deficits present. LABORATORY FINDINGS: Today includes metabolic profile, sodium of 136, potassium is 4.8, chloride is 103, bicarb is 26, BUN is 6, creatinine is 0.64, glucose is 103, magnesium is 2.1, phosphorus is 4.0. IMPRESSIONS: 1. Postoperative day #6 status post exploratory laparotomy, sigmoidectomy with end colostomy, and drainage of pelvic abscess. 2. Acute nausea and vomiting, which is exacerbated by head movement. PLAN: 1. I will place scopolamine patch and increase activity as tolerated. 2. Advance diet as tolerated. 3. Increase activity per Physical and Occupational Therapy. 4. The patient is quite deconditioned. Anticipate discharge to inpatient rehabilitation once bed is available and insurance authorization has been secured. Above findings and plan discussed with the patient and her at bedside. 5. They both indicated understanding information given. I have personally answered their questions. Job ID: [id number]
--- NOTE | 2018-12-13 12:40 | RAD ---
F2 views of abdomen 12/13/2018 COMPARISON: 12/07/2018 HISTORY: Nausea, vomiting FINDINGS: Upright imaging demonstrates minimal free intraperitoneal air beneath the right hemidiaphra gm. This would be consistent with provided history of recent sigmoidectomy. The bowel gas pattern is not optimally assessed secondary to a diffuse paucity of bowel gas. There is a suture line within the pelvis overlying the midline sacrum, new when compared to the 12/06/2018 CT examination. No acute oss eous abnormality. Vascular calcification overlies the L5 vertebral body. IMPRESSION: Small volume free intraperitoneal air, consistent with the provided history of recent sig moid resection. Paucity of bowel gas limits assessment for bowel obstruction. Follow-up imaging advis ed as clinically indicated. No dilated gas-filled bowel seen.
[2018-12-13] MEDS: Sodium Chloride 0.9% 1,000 ML IV SCH (18:53)
[2018-12-13] MEDS: Enoxaparin Sodium 40 MG/0.4 ML SYRINGE SC SCH (21:03)
[2018-12-14] MEDS: Ondansetron PF 4 MG/2 ML Vial IVP PRN ×3 (00:32→14:31)
[2018-12-14] MEDS: Sodium Chloride 0.9% 1,000 ML IV SCH (00:34)
[2018-12-14] MEDS: Metoclopramide HCl 10 MG/2 ML VIAL IVP PRN ×3 (03:22→15:40)
[2018-12-14 04:57] LABS: #Eosinphils 0.3 thou/uL (0.0-0.7); #Lymphocytes 2.2 thou/uL (1.20-3.40); #Monocytes 0.8 thou/uL (0.11-0.59); #Neutrophils 8.1 thou/uL (1.40-6.50); %Basophils 0.3 % (0.0-1.0); %Lymphocytes 19.1 % (21.0-51.0); %Monocytes 6.6 % (0.0-10.0); Hemoglobin 11.5 g/dL (12.0-16.0); Mean Corpuscular HGB CONC 33.8 g/dL (32.0-36.0); Mean Corpuscular Hemoglobin 30.6 pg (27.0-31.0); Mean Corpuscular Volume 90.5 fL (78.0-98.0); Mean Platelet Volume 7.8 fL (7.4-10.4); Platelet Count 470 thou/uL (130-400); Red Blood Cell (RBC) Count 3.76 mill/uL (4.20-5.40); White Blood Cell (WBC) Count 11.4 thou/uL (4.8-10.8)
[2018-12-14 05:17] LABS: Anion Gap 12 mmol/L (10-20); BUN (Urea Nitrogen) 5 mg/dL (9.8-20.1); Calc. Creatinine Clearance 98 mL/min (70-130); Calcium 8.7 mg/dL (7.8-10.44); Carbon Dioxide 25 mmol/L (22-29); Chloride 103 mmol/L (98-107); Estimated GFR-MDRD Greater than 90; Glucose 98 mg/dL (70-105); Magnesium 1.6 mg/dL (1.6-2.6); Phosphorus 3.5 mg/dL (2.3-4.7); Potassium 3.6 mmol/L (3.5-5.1); Sodium 136 mmol/L (136-145)
[2018-12-14] MEDS: Acetaminophen 500 MG TAB PO SCH ×3 (06:01→18:12)
[2018-12-14] MEDS ORDERED: Potassium Phosphate 15 MMOL in Sodium Chloride 0.9% 250 ML 250 ML IVPB SCH (07:45)
[2018-12-14] MEDS ORDERED: Magnesium 2 GM/50 ML 2 GM in Premix Bag 1 BAG IVPB SCH (07:45)
[2018-12-14] MEDS ORDERED: Megestrol Acetate 800 MG/20 ML UDCUP PO SCH (09:00)
[2018-12-14] MEDS ORDERED: Ciprofloxacin Lactate/D5W 200 MG in Premix Bag 1 BAG IVPB SCH (09:00)
[2018-12-14] MEDS ORDERED: Megestrol Acetate 40 MG TAB PO SCH (09:00)
[2018-12-14 09:40] LABS: Albumin 3.3 g/dL (3.5-5.0); CRP (Inflammatory) 4.88 mg/dL (= or < 0.5)
[2018-12-14] MEDS: Polyethylene Glycol 3350 17 GM Packet PO SCH (10:07)
[2018-12-14] MEDS: Amoxicillin/Potassium Clav 875 MG TAB PO SCH (10:08)
[2018-12-14] MEDS: metroNIDAZOLE 500 MG in Premix Bag 1 BAG IVPB SCH ×2 (10:49→18:13)
--- NOTE | 2018-12-14 12:39 | PRG ---
DATE OF SERVICE: 12/14/2018 SUBJECTIVE: Ms. Rollins is a 58-year-old woman. She is postoperative day #7 today, status post exploratory laparotomy with sigmoidectomy and end colostomy for acute on chronic sigmoid colon diverticulitis with abscess. She had two bouts of nonbilious emesis overnight. Nausea is slightly improving. I suspect that the nausea and emesis are related to Augmentin. Colostomy remains functional. She has poor appetite. She reports decrease in abdominal pain. OBJECTIVE: VITAL SIGNS: Today include blood pressure 145/79, pulse 79, respiratory rate is 14, temperature 98.8 degrees Fahrenheit, and oxygen saturations 97% on room air. HEART: Reveals regular rate and rhythm. LUNGS: Clear to auscultation bilaterally. Breathing, regular and nonlabored. ABDOMEN: Soft and nondistended. Incision is intact, clean, and dry. Colostomy is viable and functional without stool. IMAGING: Abdominal x-ray yesterday revealed nonspecific gas pattern, clearly no obstructive process. LABORATORY FINDINGS: Today include a CBC with 11,400 white blood cells, hemoglobin and hematocrit are 11.5 and 34.0 respectively. Platelet count is 470,000. Metabolic profile; sodium 136, potassium 3.6, chloride is 103, bicarb is 25, BUN 5, creatinine is 0.56, glucose is 98, magnesium 1.6, phosphorus 3.5. Prealbumin is low at 12.0, albumin is also low at 3.3. C-reactive protein is elevated at 4.88. IMPRESSIONS: 1. Postop day #7 status post exploratory laparotomy, sigmoidectomy with end colostomy. 2. Debility. 3. Chronic malnutrition. PLAN: 1. Augmentin is discontinued. 2. We will initiate IV antibiotic therapy, ciprofloxacin and Flagyl at this time. 3. We will encourage better oral intake today, given nausea resolves. 4. The patient will be started on Megace to try to improve her appetite. Above findings and plan discussed with the patient, who indicates understanding of the information given. I anticipate discharge to inpatient rehabilitation once insurance authorization has been secured. Job ID: [id number]
[2018-12-14 13:43] VITALS: TEMP 98.5
[2018-12-14 16:14] VITALS: BP 152/80
--- NOTE | 2018-12-15 04:23 | DIS ---
DATE OF ADMISSION: 12/06/2018 DATE OF DISCHARGE: 12/14/2018 ADMISSION DIAGNOSIS: Acute on chronic diverticulitis with abscess and appendicitis. DISCHARGE DIAGNOSIS: Acute on chronic diverticulitis with abscess and appendicitis. CONSULTING PHYSICIAN: None. PROCEDURES: On December 07, 2018, the patient had an ex lap, drainage of peritoneal abscess, sigmoidectomy and end colostomy, feeding NJ tube placement, and appendectomy. HOSPITAL COURSE: Ms. Rollins is a 58-year-old female who is well known to Dr. Rubio's team. The patient began to have fevers and was subsequently readmitted to the hospital, status post previous diverticulitis and abdominal wall abscess that had been tried noninvasive management as well as perc drain placement. The patient received a CT scan which demonstrated an acute on chronic diverticulitis with the abdominal wall abscess as well as appendicitis. On December 07, 2018, the patient went to the OR with Dr. Rubio and had an ex lap, drainage of peritoneal abscess, sigmoidectomy and end colostomy, feeding NJ tube placement, and appendectomy. She was then admitted to the regular nursing surgical floor. Postoperatively, the patient did well initially, but once her ostomy started to work, she started to suffer from nausea and vomiting. It was attributed to the oral antibiotics and that was stopped. She was changed to IV Cipro and Flagyl. The patient was also very deconditioned and weak. She has chronic anemia and electrolyte disturbances, for which she was getting treatment for as well. At the time of discharge, the patient's condition had improved, but she was not able yet to fully care for herself or maintain regular adequate nutrition and so she was subsequently discharged to an acute rehab facility. DISCHARGE DISPOSITION: Acute rehab. DISCHARGE CONDITION: Satisfactory. PHYSICAL EXAMINATION: VITAL SIGNS: Temperature 98.5, pulse 71, respirations 16, oxygen saturation 99% on room air, blood pressure 152/80. GENERAL: Cachectic-looking middle-aged female with no signs of acute distress. PULMONARY: Equal chest rise and fall. Clear breath sounds bilaterally. No significant signs of respiratory distress. CARDIAC: Regular rate and rhythm. No murmurs, gallops, or rubs. GI: Abdomen is soft, appropriately tender to palpation and nondistended. Ostomy is well perfused with dark stool in bag. EXTREMITIES: 2+ pulses in all extremities. Gross motor and sensation intact in all extremities. No significant swelling noted. DISCHARGE INSTRUCTIONS: The patient was discharged to acute rehab with no activity restrictions. Regular diet with Ensure t.i.d. She also has physical therapy and wound care for her ostomy. She was also recommended to have a walker. DISCHARGE MEDICATIONS: Include, 1. Tylenol. 2. IV Cipro 200 mg q.12 hours for 7 days post discharge. 3. Ibuprofen. 4. Megace. 5. Reglan. 6. Flagyl 500 mg IV q.6 hours x7 days after discharge. 7. Zofran. 8. MiraLAX. 9. Scopolamine patch. 10. Senokot. 11. Tramadol. FOLLOWUP APPOINTMENTS: The patient is to follow up with Dr. Rubio in clinic in 2 weeks and perform a CBC with diff, CMP, CRP, pre-albumin and albumin before her followup appointment. This is merely a summary of the patient's hospitalization. For full details, please see her medical record in its entirety. Job ID: [id number]
== END 2018-12-14 19:21 | DRG 330 ==
LOC: ERS 12:14 → 3SE 15:00 → SJJU 12-07 15:03
PROVIDERS: ADMIT Surgery; ATTEND Surgery
PROC: 0DTJ0ZZ Resection of Appendix, Open Approach (ICD-10-PCS; principal; 2018-12-07)
PROC: 0DBN0ZZ Excision of Sigmoid Colon, Open Approach (ICD-10-PCS; 2018-12-07)
PROC: 0D1N0Z4 Bypass Sigmoid Colon to Cutaneous, Open Approach (ICD-10-PCS; 2018-12-07)
DX: K57.20 Diverticulitis of large intestine with perforation and abscess without bleeding (principal); K35.80 Unspecified acute appendicitis; E44.0 Moderate protein-calorie malnutrition; Z68.1 Body mass index [BMI] 19.9 or less, adult
CPT/HCPCS: 36415; 36416; 74018; 74019; 74177; 80048; 80053; 81003; 82040; 83690; 83735; 84100; 84134; 85007; 85025; 85027; 85610; 85730; 86140; 86850; 86900; 86901; 87070; 87205; 88307; 96361; 96365; J0131; J0744; J1100; J1650; J1885; J2001; J2185; J2250; J2270; J2370; J2405; J2550; J2704; J2765; J3010; J3475; J3490; J7050; Q0163; Q9966; S0028

== ENCOUNTER 2019-09-21 10:34 | Outpatient (CLI) | payer BC ==
--- NOTE | 2019-09-21 13:08 | RAD ---
Barium enema HISTORY: Colostomy. Evaluate for reversal. Diverticulitis. FINDINGS: A small amount of 1:1 liquid mixture of Gastrografin: Water was carefully instilled into th e rectal pouch under fluoroscopic control. Small amount of internal debris remains. No persistent filling defects evident. The rectal pouch tapers to a gentle terminus approximately 8 cm from the aakash verge. Excess contrast was removed. IMPRESSION: Small residual rectal pouch.
[2019-09-21] MEDS ORDERED: MD-Gastroview 120 ML BOT ONE (15:38)
== END 2019-09-21 10:35 | disposition home or self-care (01) ==
LOC: RAD 10:34
PROVIDERS: ATTEND Surgery
DX: Z48.815 Encounter for surgical aftercare following surgery on the digestive system (principal); Z93.3 Colostomy status
CPT/HCPCS: 74280; Q9963

== ENCOUNTER 2019-11-20 07:33 | Outpatient (CLI) | payer BC ==
[2019-11-20 12:05] LABS: #Basophils 0.1 thou/uL (0.0-0.2); #Eosinphils 0.4 thou/uL (0.0-0.7); #Lymphocytes 2.8 thou/uL (1.20-3.40); #Monocytes 0.4 thou/uL (0.11-0.59); #Neutrophils 4.7 thou/uL (1.40-6.50); %Basophils 0.8 % (0.0-1.0); %Eosinophils 4.5 % (0.0-10.0); %Lymphocytes 33.1 % (21.0-51.0); %Monocytes 5.3 % (0.0-10.0); %Neutrophils 56.4 % (42.0-75.0); Mean Corpuscular Volume 93.9 fL (78.0-98.0); Mean Platelet Volume 8.1 fL (7.4-10.4); Platelet Count 356 thou/uL (130-400); RBC Distribution Width 12.8 % (11.5-14.5); White Blood Cell (WBC) Count 8.4 thou/uL (4.8-10.8)
[2019-11-20 12:44] LABS: Anion Gap 12 mmol/L (10-20); BUN (Urea Nitrogen) 10 mg/dL (9.8-20.1); Calc. Creatinine Clearance 0 mL/min (70-130); Calcium 9.5 mg/dL (7.8-10.44); Carbon Dioxide 28 mmol/L (22-29); Chloride 102 mmol/L (98-107); Estimated GFR-MDRD 75; Glucose 88 mg/dL (70-105); Potassium 3.9 mmol/L (3.5-5.1); Sodium 138 mmol/L (136-145)
== END 2019-11-20 07:34 | disposition home or self-care (01) ==
LOC: LABBT 07:33
PROVIDERS: ATTEND Surgery
DX: Z01.812 Encounter for preprocedural laboratory examination (principal); K57.92 Diverticulitis of intestine, part unspecified, without perforation or abscess without bleeding; Z93.3 Colostomy status
CPT/HCPCS: 80048; 83036; 85025

== ENCOUNTER 2019-11-20 10:00 | Inpatient (IN) | payer BC ==
[2019-11-20 10:19] VITALS: BMI 19.0
[2019-11-27] MEDS ORDERED: Midazolam HCl 2 mg/2 ml Vial ONE (09:00)
[2019-11-27] MEDS ORDERED: Dexamethasone 4 mg/ml Vial ONE (09:00)
[2019-11-27] MEDS ORDERED: Fentanyl 100 MCG/2 ML VIAL ONE ×2 (09:00→11:06)
[2019-11-27] MEDS ORDERED: Glycopyrrolate 0.2 MG/ML 5 ML SYRINGE ONE (10:05)
[2019-11-27] MEDS ORDERED: PROPOFOL 200 MG/20 ML VIAL ONE (10:05)
[2019-11-27] MEDS ORDERED: EPHEDRINE 25 MG/5 ML SYRINGE ONE (10:05)
[2019-11-27] MEDS ORDERED: PHENYLEPHRINE-NS 100 MCG/ML 10 ML SYRINGE ONE (10:05)
[2019-11-27] MEDS ORDERED: Dexamethasone 20 MG/5 ML VIAL ONE ×2 (10:05)
[2019-11-27] MEDS ORDERED: Rocuronium Bromide 50 MG/5 ML VIAL ONE (10:05)
[2019-11-27] MEDS ORDERED: Ondansetron PF 4 MG/2 ML Vial ONE (10:05)
[2019-11-27] MEDS ORDERED: Bupivacaine HCl 0.5%/Epinephrine 1:200,000/PF 30 ml Vial ONE (10:05)
[2019-11-27] MEDS ORDERED: Lidocaine 1% PF 5 ML VIAL ONE (10:05)
[2019-11-27] MEDS ORDERED: Ondansetron HCl/PF 4 MG/2 ML Vial IVP PRN (14:38)
[2019-11-27] MEDS ORDERED: Promethazine HCl 25 MG/ML VIAL IM/IV PRN (14:38)
[2019-11-27] MEDS ORDERED: Non-Formulary Medication 1 EACH PO PRN (14:38)
[2019-11-27] MEDS ORDERED: Ketorolac Tromethamine 30 MG/ML VIAL IVP PRN ×2 (14:39→16:27)
[2019-11-27] MEDS ORDERED: diphenhydrAMINE 50 MG/ML VIAL IM/IV PRN (14:39)
[2019-11-27] MEDS ORDERED: fentaNYL Citrate/PF 2,000 MCG in Sodium Chloride 0.9% 60 ML IV PRN (14:39)
[2019-11-27] MEDS ORDERED: Naloxone HCl 0.4 mg/ml Vial IV PRN (14:39)
[2019-11-27] MEDS ORDERED: diphenhydrAMINE 25 MG CAP PO PRN (14:39)
[2019-11-27] MEDS ORDERED: Zolpidem Tartrate 5 MG TAB PO PRN (14:39)
[2019-11-27] MEDS ORDERED: Ondansetron PF 4 MG/2 ML Vial IVP PRN ×2 (14:39→16:27)
[2019-11-27] MEDS ORDERED: Promethazine HCl 25 MG/ML VIAL IM PRN ×2 (14:39→16:27)
[2019-11-27] MEDS ORDERED: hydrALAZINE 20 MG/ML VIAL SLOW IVP PRN (16:27)
--- NOTE | 2019-11-27 17:56 | OP ---
DATE OF PROCEDURE: 11/27/2019 PREOPERATIVE DIAGNOSES: 1. History of ruptured sigmoid diverticulitis. 2. Attention to colostomy. POSTOPERATIVE DIAGNOSES: 1. History of ruptured sigmoid diverticulitis. 2. Attention to colostomy. PROCEDURE PERFORMED: Laparoscopic converted to open colostomy takedown. ANESTHESIA: General. ESTIMATED BLOOD LOSS: 100 mL. COMPLICATIONS: None. SPECIMEN: Piece of rectum. DESCRIPTION OF PROCEDURE: The patient was taken to the operating room table, laid supine on the operating room table. After general anesthetic was obtained, a Hogan was placed, and her abdomen was prepped and draped in a sterile fashion. Left subcostal 5 mm Optiview trocar was placed in usual fashion without injury and high-flow pneumoperitoneum was obtained. Two right lower quadrant 5 mm ports were placed. Multiple adhesions were taken down to the posterior abdominal wall. There was no injury to the bowel or colon during this portion of the procedure. There were minimal adhesions in the abdomen. The small bowel was able to be brought out of the pelvis with very little difficulty. Decision was made to proceed with laparoscopic placement. The colostomy was from the skin and dissection was taken down into the abdominal cavity. The colostomy was reduced back down in and hand assist port was placed. A 28 EEA anvil was passed to the end of the colostomy segment and brought out on the antimesenteric surface of the colon more proximal. Just distal to this, endoscopic 60 mm stapler was used to staple across the colon. More proximal colon segment was able to reach down into the pelvis under no tension. Dissection using the hand-assist port was performed down into the pelvis. There was significant scar type change in the pelvis and the rectum could not be seen easily. A Sizer was passed through the anus and there was significant adhesions of the retracted rectum against the posterior uterus. Decision was made to open. Midline incision was made and Bookwalter retractor was placed. Meticulous dissection in the pelvis was then required in order to dissect out the upper rectum. This was dissected down to the mid rectum. The left and right ureters were found and excluded from the dissection and not injured. Finally, the staple line was found, and just distal to this, a reload of the stapler was fired across the rectum. The small piece of excised rectum was sent to Pathology for final diagnosis. The base of the EEA staple was brought up through the anus and its sharp pin brought out on the antimesenteric surface of the rectal stump below. This was connected to the anvil from above and the stapler was tightened down and fired. There was no tension on the anastomosis. It was oversewn using silk pop-off sutures. It was tested by air insufflation under water or saline without evidence of leakage. There was no ischemia to the staple line. The abdomen was irrigated. All instrument counts, needle counts, lap counts were correct. Posterior colostomy site was closed using PDS posteriorly and anteriorly. Midline fascia was closed using #1 PDS from the top and the bottom and tied in the middle. The subcutaneous tissues were irrigated and closed using 3-0 Vicryls, 4-0 Monocryl, and Dermabond. The colostomy site was closed using a running Prolene suture. Glidden drain was left in the wound. Sterile dressings were placed. The patient was sent to Recovery in stable condition. All instrument counts, needle counts, lap counts were correct. Job ID: [id number]
[2019-11-27] MEDS: Acetaminophen 325 MG TAB PO SCH ×2 (18:04→23:59)
[2019-11-27] MEDS: Sodium Chloride 0.9% 1,000 ML IV SCH (18:10)
[2019-11-27] MEDS: Enoxaparin Sodium 40 MG/0.4 ML SYRINGE SC SCH (20:42)
[2019-11-27] MEDS: Famotidine 20 MG TAB PO SCH (20:43)
[2019-11-27] MEDS: Famotidine/PF 20 mg/2ml Vial SLOW IVP SCH (20:43)
[2019-11-27] MEDS: cefOXitin Sodium/Dextrose,Iso 1 GM in Premix Bag 1 BAG IVPB SCH (21:00)
[2019-11-28] MEDS: cefOXitin Sodium/Dextrose,Iso 1 GM in Premix Bag 1 BAG IVPB SCH (05:35)
[2019-11-28] MEDS: Acetaminophen 325 MG TAB PO SCH ×4 (05:35→23:59)
[2019-11-28 05:55] LABS: Hemoglobin 13.2 g/dL (12.0-16.0); Mean Corpuscular HGB CONC 34.4 g/dL (32.0-36.0); Mean Corpuscular Hemoglobin 31.8 pg (27.0-31.0); Mean Corpuscular Volume 92.6 fL (78.0-98.0); Platelet Count 292 thou/uL (130-400); RBC Distribution Width 12.6 % (11.5-14.5); Red Blood Cell (RBC) Count 4.16 mill/uL (4.20-5.40); White Blood Cell (WBC) Count 20.7 thou/uL (4.8-10.8)
[2019-11-28 05:59] LABS: Anion Gap 13 mmol/L (10-20); BUN (Urea Nitrogen) 10 mg/dL (9.8-20.1); Calc. Creatinine Clearance 76 mL/min (70-130); Calcium 8.9 mg/dL (7.8-10.44); Carbon Dioxide 22 mmol/L (22-29); Chloride 105 mmol/L (98-107); Estimated GFR-MDRD 82; Glucose 119 mg/dL (70-105); Potassium 4.5 mmol/L (3.5-5.1); Sodium 135 mmol/L (136-145)
[2019-11-28 06:13] LABS: Band 17 % (5-11); Lymphocytes 5 % (21-51); MDiff Complete? YES; Monocytes 3 % (0-10); Neutrophil 75 % (42-75)
[2019-11-28] MEDS: Sodium Chloride 0.9% 1,000 ML IV SCH (06:37)
[2019-11-28] MEDS: Famotidine 20 MG TAB PO SCH ×2 (08:54→19:41)
[2019-11-28] MEDS ORDERED: Sodium Chloride 0.9% 1,000 ML IV SCH (11:45)
[2019-11-28] MEDS: Famotidine/PF 20 mg/2ml Vial SLOW IVP SCH ×2 (11:48→19:42)
--- NOTE | 2019-11-28 17:44 | PRG ---
DATE OF SERVICE: 11/28/2019 SUBJECTIVE: Ms. Rollins is complaining of mild bloating, but no nausea or vomiting. Her catheter is out and she feels urgency to void. She has been ambulatory. She has walked twice in the [place] today. Pain is well controlled. PHYSICAL EXAMINATION: VITAL SIGNS: She is afebrile. Her vital signs are stable. ABDOMEN: Slightly distended, but soft. LABORATORY DATA: Hemoglobin is 13. Creatinine 0.73. ASSESSMENT: Postoperative day 1, colostomy reversal. Doing well. Advance to full liquids. PLAN: Advance to full liquids. Continue to ambulate. 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 Job ID: [id number]
[2019-11-28] MEDS: Enoxaparin Sodium 40 MG/0.4 ML SYRINGE SC SCH (19:42)
[2019-11-29] MEDS: Acetaminophen 325 MG TAB PO SCH (05:58)
[2019-11-29] MEDS: Famotidine 20 MG TAB PO SCH ×2 (08:32→20:21)
[2019-11-29] MEDS: Famotidine/PF 20 mg/2ml Vial SLOW IVP SCH ×2 (08:32→20:17)
[2019-11-29] MEDS ORDERED: HYDROcodone/Acetaminophen 7.5/325 mg Tablet PO PRN (10:30)
[2019-11-29] MEDS ORDERED: Acetaminophen 325 MG TAB PO PRN (10:30)
[2019-11-29] MEDS ORDERED: Fentanyl 100 MCG/2 ML VIAL SLOW IVP PRN ×2 (10:30)
--- NOTE | 2019-11-29 17:39 | PDOC.GSPN ---
Surgery Progress Note: Subj - Subjective Narrative: Ruth liquids, no nausea Surgery Progress Note: Obj - Vital signs Vital signs: Vital Signs - Most Recent Temp Pulse Resp BP Pulse Ox 99.1 F 73 16 138/75 94 L 11/29/19 15:53 11/29/19 15:53 11/29/19 15:53 11/29/19 15:53 11/29/19 16:00 - Physical Exam General: no distress Cardiovascular: regular rate and rhythm Respiratory: clear to auscultation Abdomen: soft, non tender, nondistended Wound: healing well Surgery Progress Note: Results - Labs Result Diagrams: 11/28/19 05:12 11/28/19 05:12 Surgery Progress Note: A/P - Problem (1) Colostomy dysfunction Current Visit: Yes Code(s): K94.03 - COLOSTOMY MALFUNCTION Status: Acute (2) Diverticulitis Current Visit: No Code(s): K57.92 - DVTRCLI OF INTEST, PART UNSP, W/O PERF OR ABSCESS W/O BLEED Status: Acute - Plan Plan: POD 2 -cont full liquids -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
[2019-11-29] MEDS: HYDROcodone/Acetaminophen 7.5/325 mg Tablet PO PRN (17:54)
[2019-11-29] MEDS: Enoxaparin Sodium 40 MG/0.4 ML SYRINGE SC SCH (20:21)
[2019-11-29 23:32] VITALS: TEMP 98.5
[2019-11-30 04:20] VITALS: BP 145/80
[2019-11-30] MEDS: HYDROcodone/Acetaminophen 7.5/325 mg Tablet PO PRN (06:37)
[2019-11-30] MEDS: Famotidine 20 MG TAB PO SCH (08:59)
[2019-11-30] MEDS: Famotidine/PF 20 mg/2ml Vial SLOW IVP SCH (09:00)
--- NOTE | 2019-11-30 14:14 | DIS ---
DATE OF ADMISSION: 11/27/2019 DATE OF DISCHARGE: 11/30/2019 ADMISSION DIAGNOSES: History of diverticulitis, perforated; attention to colostomy. DISCHARGE DIAGNOSES: History of diverticulitis, perforated; attention to colostomy. PROCEDURES: Colostomy takedown by Dr. Toney, without complication. CONDITION ON DISCHARGE: Improved. STAFF: Justin Toney MD. HOSPITAL COURSE: The patient's postop expected ileus resolved quickly. On the day of discharge, she is doing well. She is ambulatory, her pain controlled on Toradol. Her wounds are clear. The [place] drains were removed from her colostomy site. Sterile dressings were placed. The patient will follow up with me in 2 weeks for suture removal. She will call me sooner if she is having any issues. She is going to do a casserole type diet for the next few days for advancing to regular food. CONDITION ON DISCHARGE: Improved. Job ID: [id number]
--- NOTE | 2019-12-04 05:24 | PQF ---
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 Clinical indicators are provided on the bottom of this form for your review Can you please further clarify if postoperative ileus is ruled in or ruled out? Postop Ileus [ ] Ruled in diagnosis [ ] Continue to treat [ ] Resolved [ ] Ruled out diagnosis [ ] Cannot rule out diagnosis [ ] Other diagnosis please specify [ x ] Unable to determine In addition, please specify: Present on Admission (POA): [ ] Yes [ ] No [ ] Unable to determine For continuity of documentation, please document condition throughout progress notes and discharge summary. Thank You. CLINICAL INDICATORS - SIGNS / SYMPTOMS / LABS DS pg.1- Patient postop expected ileus resolved quickly DS pg.1- History of diverticulitis,perforated; attention colostomy RISK FACTORS Post operative colostomy reversal- PN 11/27 pg.1 TREATMENTS Colostomy takedown- OP report IV Fluids- MAR Advance to full fluids- PN pg.1 Continue to ambulate- PN pg.1 (This form is maintained as a part of the permanent medical record) 2014 [employer]. All Rights Reserved [email or web address]
== END 2019-11-30 12:35 | disposition home or self-care (01) | DRG 333 ==
LOC: SURG A 11-27 08:06
PROVIDERS: ADMIT Surgery; ATTEND Surgery
PROC: 0DJD4ZZ Inspection of Lower Intestinal Tract, Percutaneous Endoscopic Approach (ICD-10-PCS; principal; 2019-11-27)
PROC: 0DBP0ZZ Excision of Rectum, Open Approach (ICD-10-PCS; 2019-11-27)
DX: Z43.3 Encounter for attention to colostomy (principal); K56.7 Ileus, unspecified; J44.9 Chronic obstructive pulmonary disease, unspecified; Z79.51 Long term (current) use of inhaled steroids; Z79.52 Long term (current) use of systemic steroids; Z79.899 Other long term (current) drug therapy; Z90.49 Acquired absence of other specified parts of digestive tract; Z87.891 Personal history of nicotine dependence
CPT/HCPCS: 36415; 36416; 80048; 85025; 88304; 88305; J0670; J0694; J1100; J1650; J2001; J2250; J2405; J2704; J3010; J3490

== ENCOUNTER 2019-11-26 10:10 | Day surgery (SDC) | payer BC ==
[~2019-11-26 10:10] MED LIST changes: -ISOVUE-370 76%-LOCM 1 ML ONE; +Lidocaine 1% PF 5 ML VIAL ONE; +PROPOFOL 200 MG/20 ML VIAL ONE
--- NOTE | 2019-11-26 14:41 | OP ---
DATE OF PROCEDURE: 11/26/2019 PROCEDURE: Colonoscopy with polypectomy. INDICATIONS FOR PROCEDURE: Screening for malignant neoplasm of the colon, recent history of diverticulitis with possible reanastomosis planned. DESCRIPTION OF PROCEDURE: After the risks and benefits of the procedure were explained to the patient including risks of bleeding, infection, perforation, reactions to anesthesia, aspiration and/or pain, informed consent was obtained. The patient was then taken to the endoscopy suite, where she was placed in the left lateral decubitus position, followed by introduction of deep sedation via propofol and anesthesia support. A digital rectal examination was then performed followed by introduction of the standard colonoscope to the rectal anastomotic stump. Upon completion of this portion of the procedure, the patient was then arranged in the supine position and the colonoscope was advanced through the ostomy bag itself through the external ostomy and advanced to the cecum with some difficulty due to tortuosity of the colon. The patient tolerated the procedure well with no immediate perioperative complications. The quality of the prep was good. Upon conclusion of the procedure, all equipment was removed from the patient and she was transferred to Day Stay in satisfactory condition. FINDINGS: Digital rectal exam: Normal findings were seen on external examination. Colonoscopy of rectum: The colonoscope was advanced to approximately 15 cm past the anal verge, at which point, further advancement could not be progressed due to the anastomotic stump. The anastomotic stump itself appeared healthy in appearance. However, in the distal rectum, there was increased mucosal erythema and minimal amounts of bleeding noted consistent with diversion colitis. There was also a small amount of concretions that were seen in the rectum that were easily removed with the colonoscope. No abnormalities were seen on rectal retroflexion. Colon findings: The colonoscope was advanced through the ostomy itself and advanced to the cecum, where there was a fair amount of retained semi-solid stool, however, with aggressive irrigation and suctioning with sterile water, this was converted to a good prep. Of the mucosa seen, normal-appearing mucosa was seen at the ileocecal valve and the appendiceal orifice; however, a 3 to 4 mm polyp was seen in the cecum and completely removed with snare cautery polypectomy. It was retrieved and placed in a specimen jar for further evaluation. Normal-appearing mucosa was then seen in the ascending, transverse, descending, and proximal sigmoid colon. There were no abnormalities seen within the ostomy itself. IMPRESSION: 1. A 3 mm to 4 mm cecal polyp status post hot snare polypectomy. 2. Normal-appearing mucosa throughout the colon and the ostomy. 3. Mild diversion colitis within the rectum. RECOMMENDATIONS: 1. We will follow up on the polypectomy results with repeat colonoscopy interval depending on pathology report. If adenomatous, we would recommend a repeat colonoscopy in 5 years as part of surveillance of colonic polyps. 2. Recommend follow up with Dr. Toney tomorrow for reanastomosis of the colon, especially in light of diversion colitis. 3. Continue current medications. 4. We would have the patient follow up in the GI clinic as needed. Job ID: [id number]
== END 2019-11-26 13:50 | disposition home or self-care (01) ==
LOC: SDC 10:10
PROVIDERS: ATTEND Internal Medicine
PROC: 0DBH8ZX Excision of Cecum, Via Natural or Artificial Opening Endoscopic, Diagnostic (ICD-10-PCS; principal; 2019-11-26)
DX: Z12.11 Encounter for screening for malignant neoplasm of colon (principal); D12.0 Benign neoplasm of cecum; K52.89 Other specified noninfective gastroenteritis and colitis; Q43.8 Other specified congenital malformations of intestine; Z90.49 Acquired absence of other specified parts of digestive tract; Z93.3 Colostomy status
CPT/HCPCS: 88305; J2001; J2704